=== PATIENT | female | born 1945 | race Caucasian/White ===

== ENCOUNTER → 2016-04-24 14:00 | Outpatient (CLI) | payer MEDICARE, BC ==
[2016-04-24 15:05] LABS: BILIRUBIN - TOTAL 0.3 mg/dL (0.2-1.3); CALCIUM 9.4 mg/dL (8.5-10.1); CARBON DIOXIDE 26.8 mmol/L (21.0-32.0); CREATININE - SERUM 1.3 mg/dL (0.6-1.3); POTASSIUM - SERUM 4.8 mmol/L (3.5-5.1)
== END | disposition home or self-care (01) ==
LOC: D.LAB 04-22 15:30 → D.RAD 04-22 15:30
PROVIDERS: Internal Medicine Gastroenterology
DX: K59.00 Constipation, unspecified (principal)

== ENCOUNTER → 2016-05-09 12:20 | Outpatient (CLI) | payer MEDICARE, BC ==
[2016-05-09 13:18] LABS: BASOPHILS 0 % (0.0-2.0); EOSINOPHILS 0.5 % (0-7); HEMOGLOBIN 11.9 g/dL (12-16); IMMATURE GRANULOCYTES 0.3 % (0-5); LYMPHOCYTES 37.9 % (15-50); MCH 32.2 pg (26.0-34.0); MCHC 33.1 g/dL (31.0-37.0); MCV 97.6 fL (80.0-100.0); MEAN PLATELET VOLUME 10.2 fL (7.4-10.4); MONOCYTES 12.6 % (2-11); NEUTROPHILS 48.7 % (40-80); PLATELET COUNT 173 10x3/uL (130-400); RBC 3.69 10x6/uL (4.00-5.40); RDW 13.8 % (11.5-14.5); WBC 3.9 10x3/uL (4.8-10.8)
[2016-05-09 13:37] LABS: ALBUMIN 4.2 g/dL (3.4-5.0); ANION GAP 14.3 mmol/L (8-16); BILIRUBIN - DIRECT 0.1 mg/dL (0.00-0.30); BILIRUBIN - INDIRECT 0.21 mg/dL (0.00-1.00); BILIRUBIN - TOTAL 0.31 mg/dL (0.2-1.3); CALCIUM 9.5 mg/dL (8.5-10.1); CARBON DIOXIDE 27.8 mmol/L (21.0-32.0); PHOSPHOROUS 3.7 mg/dL (2.5-4.9); POTASSIUM - SERUM 4.1 mmol/L (3.5-5.1); PROTEIN - SERUM 7.8 g/dL (6.4-8.2); THYROID STIMULATING HORMONE 6.42 uIU/mL (0.36-3.74)
== END | disposition home or self-care (01) ==
LOC: D.LAB 12:20
PROVIDERS: Pain Medicine Pain Medicine
DX: Z51.81 Encounter for therapeutic drug level monitoring (principal); Z79.891 Long term (current) use of opiate analgesic

== ENCOUNTER 2016-07-28 20:22 | Inpatient (IN) | payer MEDICARE, BC ==
[~2016-07-28] VITALS: Ht 157.5 cm; Wt 69.1 kg
--- NOTE | ~2016-07-28 | CN ---
PATIENT NAME:AWA ANTONIO MEDICAL RECORD: [id number] : 45 LOCATION:D. D.2108 ADMIT DATE: 07/28/16 ACCOUNT: [id number] CONSULTING PHYSICIAN: THUAN GUTIERREZ MD REFERRING PHYSICIAN: BURKE JONES MD DATE OF CONSULTATION: 07/29/2016 Cardiology Consultation HISTORY OF PRESENT ILLNESS: A 71-year-old lady known with history of cardiac arrhythmias, well controlled on a combination of low dosed class 1A agent propafenone and beta blockade, has been having intermittent marked nausea and vomiting ____ every lasting 3 days. It has been ongoing by her report for the past year, having a bad episode yesterday and had a syncopal episode. She was found to have UTI and probable intravascular volume depletion as well. We are asked to see her concerning her cardiovascular status. PAST MEDICAL HISTORY: 1. History of hypertension. 2. Chronic pain syndrome. 3. Dyslipidemia. 4. Cardiac arrhythmias as described above. 5. Anxiety. 6. Gastroesophageal reflux disease. 7. Hypothyroidism, on replacement. MEDICATIONS: Include Synthroid 88 mcg q. day, Nexium 40 q. day, ____ 20 p.r.n., Roxicodone 15 q.4 p.r.n., Dilaudid 4 mg q.4 hours p.r.n., Neurontin 300 mg q. day, fentanyl patch, Aldactone 50 q. day, ramipril 10 q. day, propafenone 150 b.i.d., metoprolol 25 b.i.d., fenofibrate 160 q. day, Soma 350 q.i.d. ALLERGIES: KEFLEX, PENICILLINS, IRON AND LATEX. SOCIAL HISTORY: , lives here in [place]. She is a nonsmoker, has some trouble with ADLs secondary to chronic pain syndrome. REVIEW OF SYSTEMS: The patient reports easy bruising but reports no swollen glands. The patient reports no fever, no night sweats, no significant weight gain, no significant weight loss. No significant exercise tolerance. The patient reports no dry eyes, no irritation, no vision change. Patient reports no difficulty hearing and no ear pain. Patient reports no frequent nose bleeds or nose and sinus problems. Patient reports on arm pain on exertion. No shortness of breath while lying down. No history of heart murmur. Patient reports no cough, no wheezing or coughing up blood. Patient reports no abdominal pain, no vomiting. Normal appetite. No diarrhea and not vomiting blood. No nausea and no constipation. Patient reports no incontinence. No difficulty urinating. No hematuria. No increased frequency. Patient reports no muscle aches. No weakness, no arthralgias, no back pain. No swelling of the extremities. Patient reports no abnormal mole, no jaundice, no rashes. Reports no loss of consciousness. No weakness and no numbness. No seizures, dizziness, or headaches. The patient reports no depression, no sleep disturbance, feeling safe in a relationship and no alcohol abuse. Patient reports on fatigue. Reports no runny nose or sinus pressure. No itching, no hives, and no frequent sneezing. CONSULT REPORT [id number] AWA ANTONIO PHYSICAL EXAMINATION: GENERAL: Pleasant female in no acute distress, currently appears stated age. VITAL SIGNS: Blood pressure 120/44, pulse of 53. HEENT: Normocephalic, atraumatic. NECK: No bruits noted. HEART: Regular. LUNGS: Swann are clear. ABDOMEN: Soft, nontender. EXTREMITIES: Pulses 2+ with no edema. NEUROLOGIC: Grossly intact. LABORATORY DATA: ECG shows sinus laverne only. IMPRESSION: Syncope, could be aggravated by intravascular volume depletion. Given her chronic emesis and nausea could have been a vagal response. We will check carotid Doppler study, echocardiographic study in the office approximately 2 months ago was normal as well as angiography approximately 2 years ago. TRANSINT:[id number] Voice Confirmation ID: [id number] DOCUMENT ID: [id number] THUAN GUTIERREZ MD CC: [id number] DICTATION DATE: 07/29/16 1430 TOWN JUSTICE: 07/30/16 0140 ADM IN [facility] [address] [id number]
--- NOTE | ~2016-07-28 | PRO ---
PATIENT:AWA ANTONIO MEDICAL RECORD: [id number] : 45 LOCATION:D.M2 D.2108 ADMISSION DATE: 07/28/16 PROCEDURE PERFORMED BY: ODETTE LUGO MD DATE OF PROCEDURE: 07/31/2016 COMPONENTS ENGINEER: Odette Lugo MD PROCEDURE: EGD with biopsy. INDICATION: The patient is a 71-year-old white female with a longstanding greater than 10-year history of epigastric pain, nausea, and occasional vomiting, and admitted with recurrent symptoms. She has had multiple extensive workups in the past, all being essentially negative. This includes a CT of the abdomen and pelvis, upper GI, small bowel follow-through, colonoscopy, EGD times 4. She is already status post cholecystectomy. She has been on long-term PPI therapy and is not on any NSAIDs. Remaining labs is unremarkable other than mild anemia. Her abdomen is soft, mild epigastric tenderness. She has a normal KUB and normal repeat CT of the abdomen and pelvis. She is now for repeat EGD. PREMEDICATION: Taper anesthesia. INSTRUMENT: Olympus video gastroscope. FINDINGS: The endoscope was passed through the oropharynx to the second portion of the duodenum without difficulty. The esophagus was completely normal other than a small sliding 1-2 cm hiatal hernia. The stomach was entered and was remarkable for scant diffuse gastritis associated with a couple of small, less than 1 cm fundic gland polyps. All of these in the gastric mucosa throughout were biopsied to rule out microscopic disease. The duodenum was entered and was completely normal. The patient tolerated the procedure well without immediate complication. IMPRESSION: 1. Essentially normal EGD other than a very small sliding hiatal hernia, scant gastritis, couple of benign fundic gland appearing polyps. 2. Epigastric pain, still unclear etiology, but there was nothing seen on today's exam to explain her pain. At this point, I do not think her symptoms are related to any significant GI pathology. RECOMMENDATIONS: 1. Follow up biopsy results. 2. As I have told this lady in the past, really I have nothing else to offer her other than to refer her to [facility] like I have already done. She is supposed to see them, I believe in October 2016. TRANSINT:[id number] Voice Confirmation ID: [id number] DOCUMENT ID: [id number] PROCEDURE NOTE [id number] PEÑAGULSHAN PeaceODETTE LOCKE MD CC: BURKE JONES MD [id number] DICTATION DATE: 07/31/16 1149 PLASTERER ROUGH: 08/01/16 0829 DIS IN 07/31/[id number] [place] [address]
[2016-07-28 21:47] LABS: BASOPHILS 0 % (0-2); EOSINOPHILS 0 % (0-7); HEMATOCRIT 32.6 % (36.0-48.0); LYMPHOCYTES 40.7 % (15-50); MCH 28.2 pg (26.0-34.0); MCHC 30.7 g/dL (31.0-37.0); MCV 91.8 fL (80.0-100.0); MEAN PLATELET VOLUME 9.6 fL (7.4-10.4); MONOCYTES 8.1 % (2-11); NEUTROPHILS 51.2 % (40-80); PLATELET COUNT 239 10x3/uL (130-400); RBC 3.55 10x6/uL (4.00-5.40); RDW 13.9 % (11.5-14.5); WBC 4.2 10x3/uL (4.8-10.8)
[2016-07-28 22:27] LABS: AMYLASE - SERUM 63 U/L (25-115); CALC OSMOLALITY 279 mosm/kg (275-300); CALCIUM 8.9 mg/dL (8.5-10.1); CARBON DIOXIDE 24.7 mmol/L (21.0-32.0); CHLORIDE - SERUM 106 mmol/L (98-107); CREATININE - SERUM 1.1 mg/dL (0.6-1.3); GLUCOSE 90 mg/dL (74-106); LIPASE 124 U/L (73-393); POTASSIUM - SERUM 4.1 mmol/L (3.5-5.1); SODIUM 140 mmol/L (136-145); TROPONIN-I < 0.017 ng/mL (0.000-0.060); UREA NITROGEN 16 mg/dL (7-18); eGFR NON AFRICAN AMERICAN 52 mL/min (90-120)
[2016-07-28 22:39] LABS: ALBUMIN 3.3 g/dL (3.4-5.0); ALKALINE PHOSPHATASE 59 U/L (46-116); ALT (SGPT) 22 U/L (10-68); BILIRUBIN - TOTAL 0.18 mg/dL (0.2-1.3); PROTEIN - SERUM 6.4 g/dL (6.4-8.2)
[2016-07-28 23:10] LABS: APPEARANCE CLOUDY (CLEAR); BILIRUBIN NEGATIVE (NEGATIVE); COLOR YELLOW (YELLOW); GLUCOSE NEGATIVE (NEGATIVE); KETONE NEGATIVE (NEGATIVE); LEUKOCYTE ESTERASE 2+ (NEGATIVE); NITRITE NEGATIVE (NEGATIVE); PROTEIN NEGATIVE (NEGATIVE); SPECIFIC GRAVITY 1.015 (1.005-1.020); UROBILINOGEN NORMAL (NORMAL)
[2016-07-28 23:24] LABS: BACTERIA MANY /hpf (NONE SEEN); EPITHELIAL CELLS 0-5 /hpf (0-5); HYALINE CAST OCC /lpf (NONE SEEN); MUCUS <1+ /lpf (NONE SEEN); WHITE CELLS - URINE 25-50 /hpf (0-5)
--- NOTE | 2016-07-29 00:49 | NUR ---
REPORT RECEIVED FROM ODETTE JEAN RN.
--- NOTE | 2016-07-29 01:15 | NUR ---
ARRIVED TO FLOOR VIA STRETCHER, ORIENTED TO UNIT. CALL LIGHT IN REACH. WILL CONTINUE TO [facility]. SEE NURSE ASSESSMENT.
[2016-07-29] MEDS ORDERED: DURAGESIC1 PATCH .1 TRANSDERM (01:21)
[2016-07-29] MEDS ORDERED: BUTALB-APAP-CA1 EACH PO (01:21)
[2016-07-29] MEDS ORDERED: ROXICODONE15 MG PO (01:22)
[2016-07-29] MEDS ORDERED: NEURONTIN 300300 MG PO (01:22)
[2016-07-29] MEDS ORDERED: SYNTHROID88 MCG PO (01:22)
[2016-07-29] MEDS ORDERED: LOPRESSOR25 MG PO (01:23)
[2016-07-29] MEDS ORDERED: NEXIUM40 MG PO (01:23)
[2016-07-29] MEDS ORDERED: PROPAFENONE HC150 MG PO (01:25)
[2016-07-29] MEDS ORDERED: ALTACE10 MG PO (01:25)
[2016-07-29] MEDS ORDERED: FENOFIBRATE160 MG PO (01:26)
[2016-07-29] MEDS ORDERED: FUROSEMIDE20 MG PO (01:26)
[2016-07-29] MEDS ORDERED: AMBIEN10 MG PO (01:26)
[2016-07-29] MEDS ORDERED: DILAUDID4 MG PO (01:28)
[2016-07-29] MEDS ORDERED: ALDACTONE50 MG PO (01:29)
[2016-07-29] MEDS ORDERED: SOMA350 MG PO (01:29)
--- NOTE | 2016-07-29 02:17 | NUR ---
COMPLAINTS OF BURNING AND ITCHING AT IV SITE, FLUSHED IV PT STATES IT FEELS WORSE. DC'D WITH TIP INTACT.
[2016-07-29 06:37] VITALS: BP 116/60
--- NOTE | 2016-07-29 07:30 | NUR ---
AM ROUNDING- RECEIVED REPORT FROM YOUTH DIRECTOR NURSE ARSH. PT IS CURRENTLY LAYING IN BED ON RIGHT SIDE WITH EYES CLOSED RESTING. ON ROOM AIR. ON MONITOR SHOWING SB, HR 50. IV SEEN TO RIGHT HAND WITH NS RUNNING AT 50CC. NO NEED AT CURRENT TIME. WILL CONTINUE TO MONITOR AND CONTINUE WITH PLAN OF CARE.
--- NOTE | 2016-07-29 07:52 | NUR ---
WINSTON DUNBAR CAME TO INFORM ME THAT PT HAD YELLED OUT AND BETTINA WENT INTO PTS ROOM TO FIND PT SITTING UP AGAINST WALL. WINSTON DUNBAR STATES SHE DID NOT SEE PT FALL BUT FOUND HER SITTING IN CORNER OF ROOM ON FLOOR. WINSTON DUNBAR STATES PT INFORMED HER THAT SHE HAD A DIZZY SPELL WHEN GOING TO THE BATHROOM AND FELL. PT STATES TO WINSTON DUNBAR THAT SHE ONLY HIT HER ELBOW AND NOTHING ELSE. BETTINA, STATES SHE HELPED PT BACK TO BED. I (THIS NURSE) WENT TO CHECK ON PT AND PT IS LAYING IN BED ON BACK. PT STATES HER BACK HURTS. I ASKED PT IF HER BACK PAIN WAS GOING ON PRIOR TO FALLING, PT STATED "YES". PLACED BED ALARM ON PT, PLACED RAILS UP X2, BED IS IN LOW POSTION, AND CALL LIGHT IS IN REACH. INSTRUCTED PT TO USE CALL LIGHT FOR ASSISTANCE IF NEEDING TO GET OOB, PT AGREED. LORENA PONCE (CHARGE NURSE) AWARE OF SITUATION. WILL FOLLOW POLICY ORDERES REGARDING THIS AND CONTINUE TO MONITOR.
[2016-07-29 08:00] VITALS: BP 105/45
--- NOTE | 2016-07-29 08:01 | NUR ---
PAGEMurphy [place] REGARDING SITUATION OF PT HAVING DIZZY SPELL AND FALLING. WILL AWAIT CALLBACK AND CONTINUE TO MONITOR.
--- NOTE | 2016-07-29 09:04 | NUR ---
0800- INCIDENT REPORT DONE PER POLICY WITH ASSISTANCE FROM THOMAS DEL VALLE, WALLPAPER INSTALLER. PAULA CAPSULE MACHINE OPERATOR AWARE OF FALL. BED ALARM IS ON, BED IS IN LOW POSITION, SIDE RAILS ARE UP X2. PT AWARE TO USE CALL LIGHT IF NEEDING ASSISTANCE. WILL CONTINUE TO MONITOR.
--- NOTE | 2016-07-29 09:19 | NUR ---
CALLED PTS TO INFORM HIM OF PT FALLING. STATES HE WILL BE DOWN HERE SHORTLY. PAULA, SPANISH LITERATURE PROFESSOR ON UNIT NOW. PAULA IS AWARE OF FAMILY MEMBER BEING NOTIFIED. NO CALL BACK YET FROM GEOVANNA ALMAGUER NP. WILL CONTINUE TO MONITOR.
--- NOTE | 2016-07-29 10:21 | NUR ---
1009- RECEIVED CALLBACK FROM GEOVANNA ALMAGUER NP. GEOVANNA ALMAGUER NP AWARE OF PT FALLING. INFORMED GEOVANNA ALMAGUER NP THAT PT STATES SHE ONLY HIT ELBOW (NOT WITNESSED). GEOVANNA ALMAGUER NP NOTIFIED.
[2016-07-29 10:24] VITALS: Ht 157.5 cm; Wt 69.1 kg
[2016-07-29 12:00] VITALS: BP 120/44
--- NOTE | 2016-07-29 13:14 | NUR ---
SCD'S ON BILATERAL LE
--- NOTE | 2016-07-29 13:36 | NUR ---
0800- REPORT DONE PER POLICY WITH ASSISTANCE FROM THOMAS DEL VALLE, MATHEMATICS EDUCATION PROFESSOR. PAULA SPRAYER INSECTICIDE AWARE OF PTS FALL. BED ALARM IS ON, BED IS IN LOWEST POSITION, SIDE RAILS ARE UP X2, CALL LIGHT IS IN REACH, AND NON-SKID SOCKS ARE ON. PT AWARE TO USE CALL LIGHT IF NEEDING ASSISTANCE. WILL CONTINUE TO MONITOR.
--- NOTE | 2016-07-29 14:20 | NUR ---
WINSTON DUNBAR PLACED SCDS ON PT ORDERED.
--- NOTE | 2016-07-29 18:15 | NUR ---
PT IS CURRENTLY SITTING UP IN BED WITH EYES OPEN RESTING. NO NEED AT CURRENT TIME. BED ALARM IS ON, BED IS IN LOWEST POSITION, SIDE RAILS ARE UP X2, CALL LIGHT IS IN REACH, AND NON-SKID SOCKS ARE ON. WILL CONTINUE TO MONITOR.
--- NOTE | 2016-07-29 19:51 | NUR ---
RESUMED CARE OF PT, LYING IN BED RESPIRATIONS EVEN AND UNLABORED ON ROOM AIR. RIGHT HAND INFUSING NS @ 100. BED ALARM ON. REQUESTS NIGHT MEDS, NO FURTHER NEEDS AT THIS TIME. CALL LIGHT IN REACH. WILL CONTINUE TO [facility]. SEE NURSE ASSESSMENT.
[2016-07-29 20:00] VITALS: BP 149/66
--- NOTE | 2016-07-29 21:00 | NUR ---
GEOVANNA MONSON PAGED FOR NIGHT MEDS, AWAITING CALL BACK.
[2016-07-30] VITALS: BP 156/66
--- NOTE | 2016-07-30 02:30 | NUR ---
DILAUDID IVP AND FOR NECK AND BACK PAIN, MARCELO FOR SLEEP. WILL CONTINUE TO MONITOR. CALL LIGHT IN REACH.
[2016-07-30 06:17] LABS: ALBUMIN 2.6 g/dL (3.4-5.0); ALKALINE PHOSPHATASE 52 U/L (46-116); ALT (SGPT) 18 U/L (10-68); BILIRUBIN - TOTAL 0.26 mg/dL (0.2-1.3); CALCIUM 8.1 mg/dL (8.5-10.1); CARBON DIOXIDE 24.2 mmol/L (21.0-32.0); CHLORIDE - SERUM 108 mmol/L (98-107); GLUCOSE 83 mg/dL (74-106); HEMATOCRIT 28.3 % (36.0-48.0); HEMOGLOBIN 8.8 g/dL (12-16); LIPASE 76 U/L (73-393); MCHC 31.1 g/dL (31.0-37.0); MCV 90.1 fL (80.0-100.0); MEAN PLATELET VOLUME 9.1 fL (7.4-10.4); PLATELET COUNT 263 10x3/uL (130-400); POTASSIUM - SERUM 3.7 mmol/L (3.5-5.1); PROTEIN - SERUM 5.3 g/dL (6.4-8.2); RBC 3.14 10x6/uL (4.00-5.40); RDW 13.6 % (11.5-14.5); SODIUM 141 mmol/L (136-145); eGFR NON AFRICAN AMERICAN 75 mL/min (90-120)
[2016-07-30 06:18] LABS: WBC 2.5 10x3/uL (4.8-10.8)
[2016-07-30 06:20] LABS: AMYLASE - SERUM 40 U/L (25-115); CALC OSMOLALITY 277 mosm/kg (275-300); CREATININE - SERUM 0.8 mg/dL (0.6-1.3); UREA NITROGEN 7 mg/dL (7-18)
--- NOTE | 2016-07-30 06:46 | NUR ---
NO CHANGES FROM PREVIOUS ASSESSMENT, CALL LIGHT IN REACH. WILL CONTINUE WITH PLAN OF CARE.
[2016-07-30 07:05] LABS: LYMPHOCYTES 48 % (15-50); MONOCYTES 5 % (2-11); NEUTROPHILS 47 % (40-80); PLATELET ESTIMATE NORMAL
[2016-07-30 08:00] VITALS: BP 150/62
[2016-07-30 11:20] LABS: BASOPHILS 0 % (0-2); EOSINOPHILS 0.4 % (0-7); HEMATOCRIT 29.2 % (36.0-48.0); LYMPHOCYTES 48.9 % (15-50); MCHC 30.8 g/dL (31.0-37.0); MEAN PLATELET VOLUME 8.8 fL (7.4-10.4); MONOCYTES 9.5 % (2-11); NEUTROPHILS 41.2 % (40-80); PLATELET COUNT 236 10x3/uL (130-400); RBC 3.21 10x6/uL (4.00-5.40); RDW 13.6 % (11.5-14.5); WBC 2.3 10x3/uL (4.8-10.8)
[2016-07-30 13:26] VITALS: BP 126/69
[2016-07-30 16:00] VITALS: BP 141/69
--- NOTE | 2016-07-30 17:06 | NUR ---
Patient Name: AWA ANTONIO Admission Status: ER Accout number: [id number] Admission Date: 07-28-2016 : 1945 Admission Diagnosis: Attending: CAROLIN Current LOS: 2 Anticipated DC Date: Planned Disposition: Home Primary Insurance: MEDICARE A & B Discharge Planning Comments: CM MET WITH PATIENT. WITH SPOUSE CHINA ANTONIO PRESENT, TO DISCUSS DISCHARGE PLANNING/NEEDS. PATIENT STATED THAT HER PLAN WAS TO RETURN HOME WITH SPOUSE. HER SPOUSE, CHINA ANTONIO [phone], WILL BE HER DISCHARGE HOME. SHE STATED SHE HAS A WALKER AT HOME FROM WHEN SHE BROKE HER HIP, BUT DOES NOT NEED IT NOW. CURRENTLY SHE DENIES ANY NEEDS. CM WILL CONTINUE TO FOLLOW AND ASSIST NEEDED. Foamite Mixer: Ruby Díaz Is the patient Alert and Oriented? Yes * How many steps to enter\exit or inside your home? 3, RAIL * PCP DR MILAGROS ORNELAS * Pharmacy [facility] ([place]) * Preadmission Environment Home with Family * ADLs Independent * Equipment Rolling Walker * List name and contact numbers for known caregivers / representatives who currently or will assist patient after discharge: CHINA ANTONIO, SPOUSE, * Community resources currently utilized None * Additional services required to return to the preadmission environment? No * Can the patient safely return to the preadmission environment? Yes * Has this patient been hospitalized within the prior 30 days at any hospital? No
--- NOTE | 2016-07-30 17:32 | NUR ---
ALERT AND ORIENTED X4. COMPLAINS OF EPIGASTRIC PAIN CONSTANT 10/10. PAIN MANAGEMENT CONTINUED ORDERED. AT BEDSIDE. SINUS RHTHYM 62bpm ON TELEMETRY. CONTINUE PLAN OF CARE AND SAFETY PRECAUTIONS.
--- NOTE | 2016-07-30 18:23 | CN ---
PATIENT NAME:AWA ANTONIO MEDICAL RECORD: [id number] : 45 LOCATION:D.M2 D.2108 ADMIT DATE: 07/28/16 ACCOUNT: [id number] CONSULTING PHYSICIAN: ODETTE HALL MD REFERRING PHYSICIAN: OMID HERBERT MD DATE OF CONSULTATION: 07/29/2016 Gastroenterology Consultation Note REFERRING PHYSICIAN: Omid Herbert MD HISTORY OF PRESENT ILLNESS: The patient is a 71-year-old white female, very well known to me for about 10 years, who basically was admitted with buutw-sm-updbyso epigastric pain, nausea and vomiting. She also has occasional flank pain and was admitted for further workup. This lady has had chronic pain issues for many, many years and has had an extensive workup including multiple CTs of the abdomen, KUBs, 4 EGDs, colonoscopy, small bowel capsule endoscopy, small bowel follow through and upper GI. She is already status post cholecystectomy. All of her lab work was unremarkable including a CBC, CMP, amylase and lipase. Her last EGD was normal in August 2014. Last colonoscopy was normal in October 2010. ALLERGIES: KEFLEX/PENICILLIN AND LATEX. HOME MEDICATIONS: Include Fioricet, fentanyl patch, oxycodone, levothyroxine, gabapentin, Nexium 40 mg daily, metoprolol, Rythmol, Altace, Lasix, fenofibrate, Ambien, Dilaudid, Aldactone, and Soma. PAST MEDICAL HISTORY: As above. She has diabetes, hypothyroidism, glaucoma, hypertension, AFib, and DVTs. PAST SURGICAL HISTORY: Remarkable for cholecystectomy, hysterectomy, total left shoulder surgery and total right hip surgery. She has also had C-spine surgery. FAMILY HISTORY: Negative for GI diseases. SOCIAL HISTORY: The patient is a former smoker. She denies alcohol use. REVIEW OF SYSTEMS: Noncontributory other than in the HPI. PHYSICAL EXAMINATION: GENERAL: Reveals a chronically ill-appearing white female in minimal distress. VITAL SIGNS: Stable. She is afebrile. CHEST: Clear. HEART: Regular rate and rhythm. ABDOMEN: Soft with mild epigastric tenderness present. EXTREMITIES: No edema. LABORATORY DATA: Reveals normal electrolytes, BUN 16, creatinine 1.1. Liver enzymes are normal. Amylase and lipase are normal. White count is 4000, hematocrit 32, MCV of 91, platelet count 239,000. There is no x-ray data. IMPRESSION: 1. Apvog-pt-dizdwec epigastric pain, nausea and vomiting of unclear etiology, CONSULT REPORT [id number] DILL,AWA VALERA but probably multifactorial and related to irritable bowel syndrome, pain meds, possibly Rythmol, etc. Again, she is status post extensive workup in the past on several occasions, all being essentially negative. She denies any nonsteroidal anti-inflammatory drugs use. She is already on Nexium. She is already status post cholecystectomy. 2. Chronic pain. The patient with history of drug seeking in the past. RECOMMENDATION: 1. CT of the abdomen and pelvis. 2. KUB. 3. If negative, consider repeat EGD on Friday. 4. Of note is that I have advised her to go [facility] for [facility] recently because of her chronic GI symptoms and negative workup. TRANSINT:[id number] Voice Confirmation ID: [id number] DOCUMENT ID: [id number] ODETTE HALL MD at 1823 CC: OMID HERBERT MD [id number] DICTATION DATE: 07/29/16 180 COUNTER HELP: 07/30/16 0340 ADM IN [facility] [address] [id number]
--- NOTE | 2016-07-30 19:21 | NUR ---
RECEIVED REPORT, PT DENIES ANY NEEDS, BED IS LOW, SRX2, BED ALARM IS ON, CALL LIGHT IN REACH, WILL CONTINUE PLAN OF CARE
[2016-07-30 20:00] VITALS: BP 148/59
[2016-07-31 01:17] VITALS: BP 139/67
--- NOTE | 2016-07-31 02:51 | NUR ---
REST QUIETLY IN BED WITH EYE CLOSE, CALL LIGHT WITHIN REACH.
[2016-07-31 05:07] LABS: BASOPHILS 0.5 % (0-2); EOSINOPHILS 0 % (0-7); HEMATOCRIT 33.4 % (36.0-48.0); HEMOGLOBIN 10.4 g/dL (12-16); IMMATURE GRANULOCYTES 0.5 % (0-5); LYMPHOCYTES 23.7 % (15-50); MCH 28.1 pg (26.0-34.0); MCHC 31.1 g/dL (31.0-37.0); MCV 90.3 fL (80.0-100.0); MEAN PLATELET VOLUME 9.5 fL (7.4-10.4); MONOCYTES 0.9 % (2-11); NEUTROPHILS 74.4 % (40-80); RDW 13.5 % (11.5-14.5); WBC 2.2 10x3/uL (4.8-10.8)
[2016-07-31 05:23] LABS: PLATELET COUNT 288 10x3/uL (130-400)
[2016-07-31 06:11] LABS: ALKALINE PHOSPHATASE 62 U/L (46-116); ALT (SGPT) 19 U/L (10-68); CALC OSMOLALITY 277 mosm/kg (275-300); CALCIUM 8.5 mg/dL (8.5-10.1); CARBON DIOXIDE 20.7 mmol/L (21.0-32.0); CHLORIDE - SERUM 106 mmol/L (98-107); CREATININE - SERUM 0.7 mg/dL (0.6-1.3); GLUCOSE 117 mg/dL (74-106); PROTEIN - SERUM 6.2 g/dL (6.4-8.2); SODIUM 140 mmol/L (136-145); UREA NITROGEN 6 mg/dL (7-18); eGFR NON AFRICAN AMERICAN 87 mL/min (90-120)
[2016-07-31 06:28] VITALS: BP 145/67
[2016-07-31 08:00] VITALS: BP 145/75
--- NOTE | 2016-07-31 08:18 | NUR ---
IV ACCESS-20 GAUGE INSERTED IN LEFT HAND FOR ACCESS. DANN COLIN RN
--- NOTE | 2016-07-31 12:00 | NUR ---
ARRIVE BACK TO ROOM FROM PROCEDURE. ALERT AND ORIENTED X4. BP-140/75, T-98.5, R-18, P-65. REQUESTING LT HAND IV BE TAKEN OUT. DC LT HAND IV TIP INTACT. NS INFUSING RT HAND IV @ 100mL/HR ORDERED. CHRONIC ABDOMINAL PAIN 11/26 UNRELIEVED BY DILAUDID IV ORDERED. DENIES SOB. BED LOCKED AND LOW. CALL LIGHT IN REACH. TWO SIDERAILS UP.
--- NOTE | 2016-07-31 12:35 | NUR ---
Nutrition follow-up: Diet: Regular s/p EGD PO intake has been poor due to continued severe abdominal pain. Labs reviewed Wt: 152# May need to consider nutrition support if po intake remains poor. RDN following.
[2016-07-31] MEDS ORDERED: LEVAQUIN500 MG PO (13:31)
--- NOTE | 2016-07-31 14:21 | NUR ---
NEW DISCHARGE MEDICATION, LEVAQUIN 500MG #2 CALLED TO M #2. SPOKE WITH CJ/PHARMACIST.
--- NOTE | 2016-07-31 15:21 | NUR ---
ALERT AND ORIENTED X4. AT BEDSIDE. DISCHARGE INSTRUCTIONS GIVEN VERBALLY AND WRITTEN. LEVAQUIN ANTIBIOTIC CALLED IN TO [facility]. DC RT HAND IV TIP INTACT. DISCHARGE PAPERS SIGNED ON CHART. ESCORT TO RIDE VIA WHEELCHAIR. REMAINS FREE FROM INJURY.
== END 2016-07-31 15:23 | disposition home or self-care (01) | DRG 392 ==
LOC: D.ER 20:22 → D.M2 23:52
PROVIDERS: Emergency Medicine Emergency Medical Services; Internal Medicine Gastroenterology; ADMIT Family Medicine Adult Medicine
PROC: 0DB68ZX Excision of Stomach, Via Natural or Artificial Opening Endoscopic, Diagnostic (ICD-10-PCS; principal; 2016-07-31 11:00)
DX: R10.13 Epigastric pain (principal); N39.0 Urinary tract infection, site not specified; K29.70 Gastritis, unspecified, without bleeding; K44.9 Diaphragmatic hernia without obstruction or gangrene; K31.7 Polyp of stomach and duodenum; E86.9 Volume depletion, unspecified; I10 Essential (primary) hypertension; F41.9 Anxiety disorder, unspecified; E03.9 Hypothyroidism, unspecified; K21.9 Gastro-esophageal reflux disease without esophagitis; G89.4 Chronic pain syndrome; R00.2 Palpitations; Z87.891 Personal history of nicotine dependence

== ENCOUNTER 2016-08-01 17:11 | Emergency (ER) | payer MEDICARE, BC ==
[~2016-08-01 17:11] MED LIST: ALDACTONE50 MG PO; ALTACE10 MG PO; AMBIEN10 MG PO; BUTALB-APAP-CA1 EACH PO; DILAUDID4 MG PO; DURAGESIC1 PATCH .1 TRANSDERM; FENOFIBRATE160 MG PO; FUROSEMIDE20 MG PO; LEVAQUIN500 MG PO; LOPRESSOR25 MG PO; NEURONTIN 300300 MG PO; NEXIUM40 MG PO; PROPAFENONE HC150 MG PO; ROXICODONE15 MG PO; SOMA350 MG PO; SYNTHROID88 MCG PO
[2016-08-01 18:21] LABS: BASOPHILS 0 % (0-2); EOSINOPHILS 0.1 % (0-7); HEMATOCRIT 34.7 % (36.0-48.0); HEMOGLOBIN 10.7 g/dL (12-16); IMMATURE GRANULOCYTES 0.2 % (0-5); LYMPHOCYTES 12.9 % (15-50); MCH 28.2 pg (26.0-34.0); MCHC 30.8 g/dL (31.0-37.0); MCV 91.3 fL (80.0-100.0); MEAN PLATELET VOLUME 8.9 fL (7.4-10.4); MONOCYTES 4.7 % (2-11); NEUTROPHILS 82.1 % (40-80); PLATELET COUNT 289 10x3/uL (130-400)
[2016-08-01 18:22] LABS: WBC 8.6 10x3/uL (4.8-10.8)
[2016-08-01 18:29] LABS: ALBUMIN 3.6 g/dL (3.4-5.0); ALKALINE PHOSPHATASE 66 U/L (46-116); ALT (SGPT) 17 U/L (10-68); AMYLASE - SERUM 74 U/L (25-115); BILIRUBIN - TOTAL 0.38 mg/dL (0.2-1.3); CALCIUM 9.2 mg/dL (8.5-10.1); CARBON DIOXIDE 25.1 mmol/L (21.0-32.0); CHLORIDE - SERUM 102 mmol/L (98-107); CREATININE - SERUM 0.8 mg/dL (0.6-1.3); GLUCOSE 129 mg/dL (74-106); LIPASE 198 U/L (73-393); PROTEIN - SERUM 6.8 g/dL (6.4-8.2); SODIUM 138 mmol/L (136-145); eGFR NON AFRICAN AMERICAN 75 mL/min (90-120)
[2016-08-01 18:30] LABS: CALC OSMOLALITY 276 mosm/kg (275-300); POTASSIUM - SERUM 3.1 mmol/L (3.5-5.1); UREA NITROGEN 9 mg/dL (7-18)
[2016-08-01 20:04] LABS: APPEARANCE CLEAR (CLEAR); BILIRUBIN NEGATIVE (NEGATIVE); COLOR STRAW (YELLOW); GLUCOSE NEGATIVE (NEGATIVE); KETONE NEGATIVE (NEGATIVE); LEUKOCYTE ESTERASE NEGATIVE (NEGATIVE); NITRITE NEGATIVE (NEGATIVE); PROTEIN NEGATIVE (NEGATIVE); UROBILINOGEN NORMAL (NORMAL)
== END 2016-08-01 22:00 | disposition home or self-care (01) ==
LOC: D.ER 17:11
PROVIDERS: Emergency Medicine
DX: R11.2 Nausea with vomiting, unspecified (principal); R51 Headache

== ENCOUNTER 2016-09-03 18:33 | Inpatient (IN) | payer MEDICARE, BC ==
[~2016-09-03] VITALS: Ht 157.5 cm; Wt 55.5 kg
[2016-09-03 19:59] LABS: BASOPHILS 1.1 % (0-2); EOSINOPHILS 0 % (0-7); HEMATOCRIT 37.5 % (36.0-48.0); HEMOGLOBIN 10.9 g/dL (12-16); IMMATURE GRANULOCYTES 0.2 % (0-5); MCH 27.4 pg (26.0-34.0); MCHC 29.1 g/dL (31.0-37.0); MCV 94.2 fL (80.0-100.0); MEAN PLATELET VOLUME 10.7 fL (7.4-10.4); NEUTROPHILS 76.7 % (40-80); PLATELET COUNT 257 10x3/uL (130-400); RBC 3.98 10x6/uL (4.00-5.40); RDW 16.2 % (11.5-14.5); WBC 6.2 10x3/uL (4.8-10.8)
[2016-09-03 20:01] LABS: ALBUMIN 3.3 g/dL (3.4-5.0); ALKALINE PHOSPHATASE 67 U/L (46-116); ALT (SGPT) 21 U/L (10-68); BILIRUBIN - TOTAL 0.39 mg/dL (0.2-1.3); CALC OSMOLALITY 278 mosm/kg (275-300); CALCIUM 8.7 mg/dL (8.5-10.1); CARBON DIOXIDE 21.6 mmol/L (21.0-32.0); CHLORIDE - SERUM 106 mmol/L (98-107); POTASSIUM - SERUM 4.5 mmol/L (3.5-5.1); PROTEIN - SERUM 7.3 g/dL (6.4-8.2); SODIUM 139 mmol/L (136-145); UREA NITROGEN 19 mg/dL (7-18); eGFR NON AFRICAN AMERICAN 58 mL/min (90-120)
[2016-09-03 20:02] LABS: GLUCOSE 78 mg/dL (74-106)
[2016-09-03 20:17] LABS: CKMB 0.1 U/L (0.0-3.6); CREATINE KINASE 129 UL (21-215)
[2016-09-03 20:18] LABS: TROPONIN-I < 0.017 ng/mL (0.000-0.060)
[2016-09-03 23:31] LABS: CKMB 1.2 U/L (0.0-3.6); CREATINE KINASE 118 UL (21-215); TROPONIN-I 0.019 ng/mL (0.000-0.060)
[2016-09-04] MEDS ORDERED: FLUTICASONE PRO16 GM NASAL (00:44)
[2016-09-04] MEDS ORDERED: ROXICODONE15 MG PO (01:19)
--- NOTE | 2016-09-04 03:43 | NUR ---
CANDY POLISHER AT BED SIDE TO OBTAIN VITALS, WILL CONT TO MONITOR.
[2016-09-04 03:49] VITALS: BP 136/89; Ht 157.5 cm; Wt 55.5 kg
[2016-09-04 04:51] VITALS: BP 124/50
[2016-09-04 05:19] LABS: BASOPHILS 0 % (0-2); EOSINOPHILS 0 % (0-7); IMMATURE GRANULOCYTES 0.2 % (0-5); LYMPHOCYTES 21.5 % (15-50); MCH 26.9 pg (26.0-34.0); MCHC 30.1 g/dL (31.0-37.0); MEAN PLATELET VOLUME 9.3 fL (7.4-10.4); MONOCYTES 6.9 % (2-11); NEUTROPHILS 71.4 % (40-80); PLATELET COUNT 256 10x3/uL (130-400); RBC 3.34 10x6/uL (4.00-5.40); RDW 15.4 % (11.5-14.5); WBC 5.1 10x3/uL (4.8-10.8)
[2016-09-04 05:24] LABS: HEMATOCRIT 29.9 % (36.0-48.0); MCV 89.5 fL (80.0-100.0)
[2016-09-04 05:37] LABS: CALC OSMOLALITY 284 mosm/kg (275-300); CARBON DIOXIDE 26.2 mmol/L (21.0-32.0); CHLORIDE - SERUM 106 mmol/L (98-107); CKMB 1.1 U/L (0.0-3.6); CREATINE KINASE 106 UL (21-215); CREATININE - SERUM 1.1 mg/dL (0.6-1.3); POTASSIUM - SERUM 4.2 mmol/L (3.5-5.1); SODIUM 141 mmol/L (136-145); TROPONIN-I 0.021 ng/mL (0.000-0.060); UREA NITROGEN 17 mg/dL (7-18); eGFR NON AFRICAN AMERICAN 52 mL/min (90-120)
[2016-09-04 05:40] LABS: GLUCOSE 135 mg/dL (74-106)
--- NOTE | 2016-09-04 07:22 | NUR ---
PT SITTING UP IN BED WATCHING TV DENIES NEEDS WILL CONT TO MONITOR
[2016-09-04 09:07] VITALS: BP 121/76
--- NOTE | 2016-09-04 10:00 | NUR ---
EKG ORDERED, DONE AND PLACED ON CHART
[2016-09-04 11:16] LABS: CKMB 0.6 U/L (0.0-3.6)
[2016-09-04 11:17] LABS: CREATINE KINASE 5 UL (21-215); TROPONIN-I < 0.017 ng/mL (0.000-0.060)
[2016-09-04 12:08] VITALS: BP 136/53
[2016-09-04 16:32] VITALS: BP 121/46
--- NOTE | 2016-09-04 17:00 | NUR ---
PT REFUSE SCD, BUT IS UP AD VERA
--- NOTE | 2016-09-04 17:58 | NUR ---
PT SITTING UP IN BED WITH AT BEDSIDE. DENIES NEEDS OTHER THAN PAIN MEDICATION FOR MARTIN. NOT TIME FOR MEDICATION YET
--- NOTE | 2016-09-04 19:37 | NUR ---
RECEIVED REPORT, PT VISITING WITH , PT SAYS IF WE WONT GIVE PAIN MEDS, SHE SHOULD JUST GO HOME, DR ESQUEDA ON FLOOR WAS TOLD, HE SAID IF SHE GOES SHE WILL HAVE TO GO AMA, BED IS LOW, SRX2, CALL LIGHT IN REACH, WILL CONTINUE PLAN OF CARE
[2016-09-04 23:32] VITALS: BP 143/60
--- NOTE | 2016-09-05 01:33 | NUR ---
CALL LIGHT IN REACH, WILL CONTINUE WITH PLAN OF CARE.
--- NOTE | 2016-09-05 02:39 | NUR ---
ASSESSMENT COMPLETE, SEE FLOWSHEET, PT C/O OF HEAD ACHE AND BACK PAIN, GAVE PERCERT ORDER, BED IS LOW, SRX2, CALL LIGHT IN REACH, WILL CONTINUE PLAN OF CARE
[2016-09-05 06:04] LABS: BASOPHILS 0 % (0-2); EOSINOPHILS 0 % (0-7); HEMATOCRIT 35.1 % (36.0-48.0); HEMOGLOBIN 10.7 g/dL (12-16); IMMATURE GRANULOCYTES 0.3 % (0-5); LYMPHOCYTES 30.7 % (15-50); MCH 26.8 pg (26.0-34.0); MCHC 30.5 g/dL (31.0-37.0); MEAN PLATELET VOLUME 9.5 fL (7.4-10.4); MONOCYTES 15.2 % (2-11); NEUTROPHILS 53.8 % (40-80); PLATELET COUNT 289 10x3/uL (130-400); RBC 3.99 10x6/uL (4.00-5.40); RDW 15.4 % (11.5-14.5)
[2016-09-05 06:14] LABS: WBC 3.7 10x3/uL (4.8-10.8)
[2016-09-05 06:24] VITALS: BP 128/62
[2016-09-05 06:35] LABS: ALBUMIN 3.3 g/dL (3.4-5.0); BILIRUBIN - TOTAL 0.28 mg/dL (0.2-1.3); CALCIUM 9.2 mg/dL (8.5-10.1); CARBON DIOXIDE 29.5 mmol/L (21.0-32.0); CREATININE - SERUM 1.1 mg/dL (0.6-1.3); PHOSPHOROUS 2.7 mg/dL (2.5-4.9); POTASSIUM - SERUM 4.5 mmol/L (3.5-5.1); PROTEIN - SERUM 7.4 g/dL (6.4-8.2)
--- NOTE | 2016-09-05 07:20 | NUR ---
PT SITTING UP IN BED WATCHING TV, DENIES ANY NEEDS AT THIS TIME WILL CONT TO MONITOR
[2016-09-05 12:09] VITALS: BP 118/47
[2016-09-05 13:19] LABS: APPEARANCE CLEAR (CLEAR); BILIRUBIN NEGATIVE (NEGATIVE); COLOR STRAW (YELLOW); GLUCOSE NEGATIVE (NEGATIVE); KETONE NEGATIVE (NEGATIVE); LEUKOCYTE ESTERASE NEGATIVE (NEGATIVE); NITRITE NEGATIVE (NEGATIVE); PROTEIN NEGATIVE (NEGATIVE); SPECIFIC GRAVITY 1.005 (1.005-1.020); UROBILINOGEN NORMAL (NORMAL)
[2016-09-05 16:06] VITALS: BP 125/50
--- NOTE | 2016-09-05 18:36 | NUR ---
PT CO SEVERE PAIN AGAIN IN HER BACK 11/26. DR GIRALDO ALTERED PAIN MEDICATION ORDERS. GIVEN ORDERED FOR PAIN. PT DENIES ANY OTHER NEEDS
--- NOTE | 2016-09-05 19:54 | NUR ---
RECEIVED REPORT, WILL ASSUME CARE OF PT, PT RESTING IN BED, DENIES ANY NEEDS AT THIS TIME, BED IS LOW, SRX2, CALL LIGHT IN REACH, WILL CONTINUE CARE OF PLAN
[2016-09-05 20:00] VITALS: BP 124/55
--- NOTE | 2016-09-05 22:25 | NUR ---
COMPLAINS OF BACK PAIN, ASKING FOR PAIN MEDS, GAVE OXYCODONE 5MG X3 ORDER, WILL CONTINUE TO MONITOR
[2016-09-06] VITALS: BP 129/76
--- NOTE | 2016-09-06 01:33 | NUR ---
ASSESSMENT COMPLETE, SEE FLOWSHEET,PT PLAYING ON TABLET, DENIES ANY NEEDS AT THIS TIME, BED IS LOW, SRX2, CALL LIGHT IN REACH, WILL CONTINUE TO MONITOR
--- NOTE | 2016-09-06 02:28 | NUR ---
COMPLAIN OF BACK PAIN, GAVE OXYCODONE ORDER, WILL CONTINUE TO MONITOR
[2016-09-06 04:00] VITALS: BP 120/64
--- NOTE | 2016-09-06 04:51 | NUR ---
FINISH PRODUCTION MANAGER AT BEDSIDE TO OBTAIN VITALS, CALL LIGHT IN REACH. WILL CONTINUE WITH PLAN OF CARE.
[2016-09-06 06:03] LABS: BASOPHILS 0 % (0-2); EOSINOPHILS 0 % (0-7); HEMATOCRIT 35.9 % (36.0-48.0); HEMOGLOBIN 11.2 g/dL (12-16); IMMATURE GRANULOCYTES 0.3 % (0-5); LYMPHOCYTES 42.4 % (15-50); MCH 27.1 pg (26.0-34.0); MCHC 31.2 g/dL (31.0-37.0); MCV 86.9 fL (80.0-100.0); MEAN PLATELET VOLUME 9.4 fL (7.4-10.4); MONOCYTES 12.8 % (2-11); NEUTROPHILS 44.5 % (40-80); PLATELET COUNT 333 10x3/uL (130-400); RBC 4.13 10x6/uL (4.00-5.40); RDW 15.7 % (11.5-14.5); WBC 3.8 10x3/uL (4.8-10.8)
[2016-09-06 06:22] LABS: ALBUMIN 3.5 g/dL (3.4-5.0); ANION GAP 15.3 mmol/L (8-16); BILIRUBIN - TOTAL 0.29 mg/dL (0.2-1.3); CALCIUM 9.1 mg/dL (8.5-10.1); CARBON DIOXIDE 25.7 mmol/L (21.0-32.0); MAGNESIUM - SERUM 1.7 mg/dL (1.8-2.4); PROTEIN - SERUM 7.6 g/dL (6.4-8.2)
[2016-09-06 06:25] LABS: CREATININE - SERUM 1.6 mg/dL (0.6-1.3); PHOSPHOROUS 4.2 mg/dL (2.5-4.9)
--- NOTE | 2016-09-06 06:37 | NUR ---
COMPLAINS OF PAIN, GAVE OXYCODONE ORDER
--- NOTE | 2016-09-06 07:14 | NUR ---
PT SITTING UP IN BED WATCHING TV, ASKING ABOUT POSSIBLE DC HOME. EXPLAINED TO PT THAT WE DO NOT HAVE ORDERS AND DR MUST SEE HER FIRST BEFORE DC HOME. PT VERBALIZES UNDERSTANDING. WILL CONT TO MONITOR
[2016-09-06 07:47] VITALS: BP 109/48
[2016-09-06 11:43] VITALS: BP 120/98
[2016-09-06] MEDS ORDERED: LEVAQUIN500 MG PO (12:50)
[2016-09-06] MEDS ORDERED: FUROSEMIDE20 MG PO (12:51)
--- NOTE | 2016-09-06 14:48 | NUR ---
WENT OVER DC PAPERWORK WITH PT PT VERBALIZES UNDERSTANDING. DC PIV WITH CATH TIP INTACT. DC TELE AND RETURNED TO DOCK COORDINATOR. PT HAS LEVAQUIN SCRIPT. GETTING DRESSED THEN WILL WHEEL DOWNSTAIRS
--- NOTE | 2016-09-06 15:24 | NUR ---
PT WHEELED OUT BY VOLUNTEER
--- NOTE | 2016-09-06 16:07 | NUR ---
Patient Name: AWA ANTONIO Admission Status: ER Accout number: [id number] Admission Date: 09-04-2016 : 1945 Admission Diagnosis: Attending: THEA Current LOS: 2 Anticipated DC Date: 09-06-2016 Planned Disposition: Primary Insurance: MEDICARE A & B Discharge Planning Comments: CM MET WITH PATIENT AND HER SPOUSE TO DISCUSS DISCHARGE NEEDS. PATIENT STATED THAT SHE PLANS TO RETURN HOME WITH HER SPOUSE, AND HE IS HER TRANSPORTATION HOME. SHE STILL HAS THE WALKER AT HOME IF SHE WERE TO NEED IT. DENIES THE NEED FOR ANY COMMUNITY RESOURCES AT THIS TIME. MADE MYSELF AVAILABLE IF THEY WERE TO CHANGE THEIR MIND PRIOR TO LEAVING. Radio Interference Expert: Ruby Díaz Is the patient Alert and Oriented? Yes * How many steps to enter\exit or inside your home? 3, RAIL * PCP DR MILAGROS ORNELAS * Pharmacy [facility] #[facility] * Preadmission Environment Home with Family * ADLs Independent * Equipment Walker * List name and contact numbers for known caregivers / representatives who currently or will assist patient after discharge: CHINA ANTONIO, SPOUSE, * Additional services required to return to the preadmission environment? No * Can the patient safely return to the preadmission environment? Yes * Has this patient been hospitalized within the prior 30 days at any hospital? No
== END 2016-09-06 15:24 | disposition home or self-care (01) | DRG 291 ==
LOC: D.ER 18:33 → D.MS 22:54 → D.M2 22:54 → D.ER 22:54 → OBSVTIME 22:55 → D.M2 09-04 13:52
PROVIDERS: Family Medicine; ADMIT Family Medicine
DX: I13.0 Hypertensive heart and chronic kidney disease with heart failure and stage 1 through stage 4 chronic kidney disease, or unspecified chronic kidney disease (principal); J18.9 Pneumonia, unspecified organism; N17.9 Acute kidney failure, unspecified; T40.4X1A Poisoning by other synthetic narcotics, accidental (unintentional), initial encounter; E11.22 Type 2 diabetes mellitus with diabetic chronic kidney disease; N18.9 Chronic kidney disease, unspecified; I50.9 Heart failure, unspecified; I48.91 Unspecified atrial fibrillation; H40.9 Unspecified glaucoma; D64.9 Anemia, unspecified; K27.9 Peptic ulcer, site unspecified, unspecified as acute or chronic, without hemorrhage or perforation; G89.4 Chronic pain syndrome; E78.5 Hyperlipidemia, unspecified; K21.9 Gastro-esophageal reflux disease without esophagitis; M81.0 Age-related osteoporosis without current pathological fracture; E55.9 Vitamin D deficiency, unspecified; E03.9 Hypothyroidism, unspecified; F41.9 Anxiety disorder, unspecified

== ENCOUNTER 2016-10-30 11:07 | Outpatient (CLI) | payer MEDICARE, BC ==
[~2016-10-30] VITALS: Ht 157.5 cm; Wt 51.8 kg
--- NOTE | ~2016-10-30 | HEMODYNAMI ---
PATIENT:AWA ANTONIO MEDICAL RECORD: [id number] : 45 LOCATION:[facility] ADMISSION DATE: 10/30/16 Generatedon:10/30/201614:45 Patient name: AWA ANTONIO Patient #: [id number] SSN: : Date of study: 10/30/2016 Page: Of Hemodynamic Procedure Report Patient Data Patient Demographics Procedure consent was obtained First Name: AWA Gender: Female Last Name: MARISELA : 1945 [facility] Initial: SOTO Age: 71 year(s) Patient #: [id number] Race: Unknown Additional ID: [id number] Contact details [address]: [address] [place] [address] State: [place] City: [place] Zip code: [address] Past Medical History Allergies Allergen Reaction Date Comments Reported Other allergy 10/30/2016 Keflex, Latex, Iron, PCN, almonds Admission Admission Data Admission Date: 10/30/2016 Admission Time: 11:07 Height (in.): 62 BSA: 1.53 (m2) Height (cm.): 157.48 BMI: 21.77 (kg/m2) Weight (lbs.): 119 Weight (kg.): 53.98 Lab Results Lab Result Date: 10/30/2016 Lab Result Time: 12:15 Biochemistry Name Units Result Min Max BUN mg/dl 43 --(----)-* 7 18 Creatinine mg/dl 1.4 --(----)*- 0.6 1.3 CBC Name Units Result Min Max Hematocrit % 35.4 *-(----)-- 42 54 Hemoglobin g/dl 10.7 *-(----)-- 13.5 17.5 Procedure Procedure Types Cath Procedure Diagnostic Procedure C [facility] w/Coronaries Miscellaneous Procedures Moderate Sedation up to 15 minutes Procedure Description Procedure Date Procedure Date: 10/30/2016 Procedure Start Time: 14:28 Procedure End Time: 14:38 Procedure Staff Name Function Saulo Prather MD Performing Physician Ernestine Pastor RT Scrub Joe Traore RN Nurse Ermias Ahuja RT Monitor Procedure Data Cath Procedure Fluoroscopy Diagnostic fluoroscopy Total fluoroscopy Time: 0.8 time: 0.8 min min Diagnostic fluoroscopy Total fluoroscopy dose: 164 dose: 164 mGy mGy Contrast Material Contrast Material Type Amount (ml) Isovue 300 43 Entry Location Entry Primary Successful Side Size Upsize Upsize Entry Closure Succes sful Closure Location (Fr) 1 (Fr) 2 (Fr) Remarks Device Remarks Femoral Right 5 Fr Exoseal artery Estimated blood loss: 5 ml Diagnostic catheters Device Type Used For End Catheter Placement Cordis 5Fr JL 4.0 Procedure Catheter (MP) Cordis 5Fr 3DRC Catheter Procedure (MP) Cordis 5Fr Pigtail Procedure Catheter (MP) Procedure Complications No complications Procedure Medications Medication Administration Route Dosage Oxygen NC 2 l/min Lidocaine 2% added to field 20 Heparin Flush Bag added to field 2 bags (1000units/500ml NS) 0.9% NaCl I.V. 100 ml/hr Versed I.V. 1 mg Fentanyl I.V. 50 mcg Versed I.V. 1 mg Fentanyl I.V. 50 mcg Versed I.V. 1 mg Fentanyl I.V. 50 mcg Fentanyl I.V. 50 mcg Hemodynamics Rest BSA: 1.53 (m2) HGB: 10.7 (g/dl) O2 Consumption: Estimated: 135.1 (ml/min) O2 Con sumption indexed: Estimated:88.3 (ml/min/m) Heart Rate: 60 (bpm) Pressure Samples Time Site Value (mmHg) Purpose Heart Use Rate(bpm) 14:33 LV 101/7,9 EDP 61 14:34 AO 118/55(82) Pullback 59 Gradients Valve Time Site Site 2 Mean SEP/DFP Peak To Heart Use 1 (mmHg) (sec/min) Peak Rate (mmHg) (bpm) Aortic 14:34 LV AO 19 17 59 118/55(82) Calculations Valve P-P Mean Valve Index Valve Source Name Gradient Area Flow (cm2) Aortic 19 19 Snapshots Pre Cath Intra NCS Post Cath Vital Signs Time Heart Resp SPO2 NIBP (mmHg) Rhythm Pain Sedation Rate (ipm) (%) Status Level (bpm) 14:18:06 53 15 100 155/54(125) SB 0 (11) 10(A) , No pain 14:22:32 54 14 100 137/58(74) SB 0 (11) 10(A) , No pain 14:26:46 53 14 100 124/79(96) SB 0 (11) 10(A) , No pain 14:31:07 58 14 96 106/46(86) SB 0 (11) 9(A) , No pain 14:35:12 63 15 100 103/70(78) SB 0 (11) 9(A) , No pain Medications Time Medication Route Dose Verified Delivered Reason Notes Effe ctiveness by by 14:17:26 Oxygen NC 2 Saulo Buffie used for l/min YamilkaKaitlin Traore [employer] retailer sales consultant 14:17:33 Lidocaine 2% added 20ml Saulo Saulo for local to vial [facility] anesthetic field MD LISA 14:17:39 Heparin Flush added 2 Saulo Saulo used for Bag to bags [facility] procedure (1000units/500ml field MD LISA NS) 14:17:49 0.9% NaCl I.V. 100 Saulo Buffie Per ml/hr [facility] Georgi Traore RN physician 14:18:05 Fentanyl I.V. 50 Saulo Monsonie for [facility] Traore RN sedation 14:21:15 Versed I.V. 1 mg Saulo Monsonie for YamilkaKaitlin Traore RN sedation 14:21:21 Fentanyl I.V. 50 Saulo Buffie for [facility] YamilkaKaitlin Traore RN sedation 14:26:06 Versed I.V. 1 mg Saulo Monsonie for YamilkaKaitlin Traore RN sedation 14:26:10 Fentanyl I.V. 50 Saulo Monsonie for [facility] Georgi Traore RN sedation 14:32:37 Versed I.V. 1 mg Saulo Monsonie for YamilkaKaitlin Traore RN sedation 14:32:41 Fentanyl I.V. 50 Saulo Buffie for [facility] Yamilka Traore RN sedation Procedure Log Time Note 13:45:30 Joe Traore RN sent for patient. Start room use. 13:55:38 Patient Height : 157.48 inches 13:55:43 Patient Weight : 53.98 lbs 13:56:28 Diagnostic Cath status Elective 13:56:31 Time tracking: Regular hours 13:56:36 Plan of Care:Hemodynamics will remain stable., Cardiac rhythm will remain stable., Comfort level will be maintained., Respiratory function will remain adequate., Patient/ family verbilizes understanding of procedure., Procedure tolerated without complication., Recovers from procedure without complications.. 13:58:54 Lab Result : BUN 43 mg/dl 13:58:54 Lab Result : Hemoglobin 10.7 g/dl 13:58:54 Lab Result : Hematocrit 35.4 % 13:58:54 Lab Result : Creatinine 1.4 mg/dl 14:05:28 Patient received from Pre/Post Procedure Room to CCL 2 Alert and oriented. Tansferred to table in Supine position. 14:05:31 Warm blankets applied, and tonya hugger turned on for patient comfort. 14:05:31 Correct patient and procedure confirmed by team. 14:05:32 Signed procedure consent form obtained from patient. 14:05:34 ECG and BP/O2 sat monitors applied to patient. 14:05:45 H&P Date Dictated: 10/18/2016 Within 30 days and on chart., H&P Addendum completed by physician on day of procedure. (MUST COMPLETE FOR ALL OUTPATIENTS). 14:05:46 Pre-procedure instructions explained to patient. 14:05:46 Pre-op teaching completed and patient verbalized understanding. 14:05:48 Family in patients room. 14:05:49 Patient NPO since Midnight. 14:06:19 Patient allergic to Other allergyKeflex, Latex, Iron, PCN, almonds 14:06:21 Is the patient allergic to Iodine/contrast media? No. 14:15:40 Vital chart was started 14:16:08 Is patient on blood thinner?No 14:16:10 Patient diabetic? No. 14:16:12 Previous problem with sedation/anesthesia? No ? 14:16:13 Snore? No 14:16:14 Sleep apnea? No 14:16:15 Deviated septum? No 14:16:16 Opens mouth fully? Yes 14:16:16 Sticks out tongue? Yes 14:16:18 Airway obstruction? No ? 14:16:19 Dentures? No ? 14:16:24 Pre procedure: right dorsailis pedis pulse 1+ Palpable, but thready & weak; easily obliterated 14:16:26 Patient pain scale 0/10 ?. 14:16:35 IV patent on arrival in left wrist with 0.9% NaCl at [facility]. 14:16:37 Lab results completed and on chart. 14:16:40 Right groin area was prepped with chlora-prep and draped in sterile fashion 14:16:42 Alarms reviewed by R. N. 14:16:42 Sharps counted by scrub and verified by R.N. 14:16:44 Use device set Femoral Dx 14:16:45 Tegaderm 4 x 4 opened to sterile field. 14:16:46 Acist Manifold opened to sterile field. 14:16:46 Acist Hand Control opened to sterile field. 14:16:47 Acist Syringe opened to sterile field. 14:16:48 Bag Decanter opened to sterile field. 14:16:48 Medline Cath Pack opened to sterile field. 14:16:49 Terumo 5Fr [place] Sheath opened to sterile field. 14:16:49 St Garland 260cm J .035 wire opened to sterile field. 14:16:50 Diagnostic Infinity 5Fr Multipack catheter opened to sterile field. 14:17:02 Baseline sample Acquired. 14:17:26 Oxygen 2 l/min NC was administered by Joe Traore RN; used for procedure; 14:17:32 Rhythm: bigeminy 14:17:33 Lidocaine 2% 20ml vial added to field was administered by Saulo Prather MD; for local anesthetic; 14:17:33 Full Disclosure recording started 14:17:36 Physician arrived 14:17:36 --------ALL STOP TIME OUT------ 14:17:37 Final Timeout: patient, procedure, and site verified with staff and physician. All members of the team are in agreement. 14:17:39 Heparin Flush Bag (1000units/500ml NS) 2 bags added to field was administered by Saulo Prather MD; used for procedure; 14:17:39 Right groin site verified by team. 14:17:42 Physical assessment completed. ASA score P 2 - A patient with mild systemic disease as per Saulo Prather MD. 14:17:44 Sedation plan: IV Moderate Sedation Versed, Fentanyl 14:17:49 0.9% NaCl 100 ml/hr I.V. was administered by Joe Traore RN; Per physician; 14:18:05 Fentanyl 50 mcg I.V. was administered by Buffie Traore RN; for sedation; 14:21:15 Versed 1 mg I.V. was administered by Joe Traore RN; for sedation; 14:21:21 Fentanyl 50 mcg I.V. was administered by Joe Traore RN; for sedation; 14:26:06 Versed 1 mg I.V. was administered by Joe Traore RN; for sedation; 14:26:10 Fentanyl 50 mcg I.V. was administered by Joe Traore RN; for sedation; 14:26:12 Zero performed for pressure channel P1 14:28:10 Procedure started. 14:28:13 Local anesthetic to right femoral artery with Lidocaine 2% by Saulo Prather MD.INITIAL ACCESS ONLY 14:28:20 A 5 Fr sheath was inserted into the Right Femoral artery 14:29:27 A Cordis 5Fr JL 4.0 Catheter (MP) was advanced over the wire and used for Procedure. 14:30:12 LCA angiography performed. 14:31:24 Catheter exchanged over wire. 14:31:29 A Cordis 5Fr 3DRC Catheter (MP) was advanced over the wire and used for Procedure. 14:32:12 RCA angiography performed. 14:32:22 Catheter exchanged over wire. 14:32:32 A Cordis 5Fr Pigtail Catheter (MP) was advanced over the wire and used for Procedure. 14:32:37 Versed 1 mg I.V. was administered by Joe Traore RN; for sedation; 14:32:41 Fentanyl 50 mcg I.V. was administered by Joe Traore RN; for sedation; 14:33:51 LV gram done using RODRIGUEZ 14:33:54 Injector settings: Ml/sec: 10, Volume: 20, 14:34:04 EF : 55 % 14:34:16 Catheter removed. 14:34:22 Cordis 5Fr Exoseal opened to sterile field. 14:34:28 Sheath removed intact; hemostasis achieved with Exoseal to the Right Femoral artery. 14:34:30 Procedure ended.(Physican Out) 14:34:54 Fluoroscopy time 00.80 minutes. ::57 Fluoroscopy dose: 164 mGy 14::57 Flurop Dose total: 164 14:35:07 Contrast amount:Isovue 300 43ml. 14:37:11 Sharps counted by scrub and verified by R.N. 14:37:14 Insertion/operative site no bleeding no hematoma. 14:37:16 Post-op/insertion site Right Femoral artery dressed using a 4 x 4 and Tegaderm. 14:37:19 Post right femoral artery:stable, soft, clean and dry 14:37:20 Post Procedure Pulses reassessed and unchanged 14:37:22 Post-procedure physical assessment completed. ASA score P 2 - A patient with mild systemic disease as per Saulo Prather MD. 14:37:24 Post procedure rhythm: unchanged. 14:37:27 Estimated blood loss: 5 ml 14:37:28 Post procedure instruction explained to patient.Patient verbalizes understanding. 14:37:28 Patient needs reinforcement of post procedure teaching. 14:37:52 Procedure and supply charges have been captured, reviewed, submitted and are correct. 14:37:54 Procedure Complication : No complications 14:37:56 Vital chart was stopped 14:37:56 See physician's report for complete and final results. 14:37:58 Report given to Pre/Post Procedure Room. 14:38:00 Patient transfered to Pre/Post Procedure Room with Stretcher. 14:38:01 Procedure ended. 14:38:01 Full Disclosure recording stopped 14:38:06 End room use (Document Last) Device Usage Item Name Manufacture Quantity Catalog Hospital Part Current Minimal Lo t# / Number Charge Number Stock Stock Serial# Code Tegaderm 4 3M 1 1626W [id number] 576115 785291 5 x 4 Acist Acist 1 86616 481955 735101 426298 5 Manifold [employer] Inc Acist Hand Acist 1 03202 371544 508369 534412 5 Control Medical Systems Inc Acist Acist 1 04553 871150 497739 076707 20 Syringe Medical Systems Inc Bag Microtek 1 2002S 542777 79327 901707 5 Decanter Medical Inc. Medline Cardinal 1 [id number] 866481 66618 783622 5 Cath Pack Health Terumo 5Fr Terumo 1 DDQ667 612128 090851 607160 [address] Garland 1 164257 622619 937181 823524 30 260cm J .035 wire Diagnostic Cardinal 1 [id number] 404641 09766 872210 30 Arisdyne Systems 5Fr Multipack catheter Cordis 5Fr Cardinal 1 589892 5 JL 4.0 Health Catheter (MP) Cordis 5Fr Cardinal 1 539466 5 3DRC Health Catheter (MP) Cordis 5Fr Cardinal 1 310321 5 Pigtail Health Catheter (MP) Cordis 5Fr Cardinal 1 EX500 298608 901570 551382 10 [facility] Health Signature Audit [place] Stage Time Signature Unsigned Intra-Procedure 10/30/2016 Ermias Ahuja 2:45:36 PM RT(R) Signatures Monitor : Ermias Ahuja RT Signature : Date : Time : [address] [address] [place] [address]
[~2016-10-30 11:07] MED LIST changes: +FLUTICASONE PRO16 GM NASAL
[2016-10-30 12:27] VITALS: BP 137/44; Ht 157.5 cm; Wt 51.8 kg
[2016-10-30 13:04] LABS: ANION GAP 11.9 mmol/L (8-16); CARBON DIOXIDE 26.7 mmol/L (21.0-32.0); CREATININE - SERUM 1.4 mg/dL (0.6-1.3); POTASSIUM - SERUM 5.6 mmol/L (3.5-5.1)
[2016-10-30 13:35] LABS: BASOPHILS 0 % (0-2); EOSINOPHILS 0 % (0-7); HEMATOCRIT 35.4 % (36.0-48.0); HEMOGLOBIN 10.7 g/dL (12-16); IMMATURE GRANULOCYTES 0.3 % (0-5); LYMPHOCYTES 50.1 % (15-50); MCHC 30.2 g/dL (31.0-37.0); MCV 89.2 fL (80.0-100.0); MEAN PLATELET VOLUME 9.8 fL (7.4-10.4); MONOCYTES 9.6 % (2-11); RBC 3.97 10x6/uL (4.00-5.40); RDW 16.6 % (11.5-14.5); WBC 3.5 10x3/uL (4.8-10.8)
[2016-10-30 13:36] LABS: PLATELET COUNT 221 10x3/uL (130-400)
--- NOTE | 2016-10-30 15:05 | NUR ---
1450 RECEIVED PT FROM [place], PT IS SLEEPY, DENIES ANY C/O AT THIS TIME. DRESSING TO RIGHT GROIN IS CDI, AREA SOFT AND NONTENDER. PEDAL PULSES PALPABLE. RR IS EVEN AND UNLABORED. AT BEDSIDE, CALL LIGHT IN REACH, PT INSTRUCTED TO KEEP HEAD TO PILLOW AND RIGHT LEG STRAIGHT.
--- NOTE | 2016-10-30 15:21 | NUR ---
1510 PT DENIES ANY C/O. RIGHT GROIN IS CDI, AREA SOFT AND NONTENDER. PEDAL PULSES PALPABLE, CAP REFILL IS BRISK. AT BEDSIDE, CONTINUE POC.
--- NOTE | 2016-10-30 15:30 | NUR ---
1530 PT DENIES ANY C/O. DRESSING CDI, CALL LIGHT IN REACH.
--- NOTE | 2016-10-30 16:06 | NUR ---
1545 RR EVEN AND UNLABORED. DENIES ANY C/O CHEST PAIN, DRESSING CDI, FAMILY AT BEDSIDE, CALL LIGHT IN REACH.
--- NOTE | 2016-10-30 16:51 | NUR ---
1620 HOB ELEVAGTED 45 DEGREES, DRESSING REMAINS CDI, PT DENIES ANY C/O. MARLA PO FLUIDS. 1635 IV HAS BEEN DC'D WITH CATH INTACT. PT HAS AMBULATED TO THE BATHROOM AND VOIDED QS. SITTING UP IN CHAIR EATING SANDWICH.
--- NOTE | 2016-10-30 17:04 | NUR ---
1700 PT HAS MARLA SANDWICH WITH NO C/O NAUSEA. DRESSING REMAINS CDI, GROIN SOFT AND NONTENDER. DC INSTRUCTIONS REVIEWED WITH PT WHO VERBALIZES UNDERSTANDING. PT ESCORTED TO PRIVATE AUTO VIA WC BY STAFF WITH DRIVING HER HOME.
--- NOTE | 2016-11-01 08:25 | OP ---
PATIENT NAME: AWA ANTONIO MEDICAL RECORD: [id number] :45 LOCATION:D.[facility] ADMISSION DATE: SURGEON: THUAN GUTIERREZ MD DATE OF OPERATION: 10/30/2016 PROCEDURES: Left heart catheterization, selective coronary angiography, right femoral artery approach. CATHETERS: A 5-Khmer sheath, 5/4 left and right Tonia, 5/4 pig. The procedure was well tolerated. The patient was returned to morales, sheath removed. ExoSeal device was placed. FINDINGS: Left ventriculography in 30-degree RODRIGUEZ view: Normal wall motion, normal systolic function. CORONARY ANATOMY: LEFT MAIN: Left main is free of disease. LAD: Free of disease in the diagonal system. CIRCUMFLEX: Free of disease in the marginal system. RIGHT CORONARY ARTERY: Dominant artery, gives rise to PDA, free of disease. IMPRESSION: Normal left ventricular systolic function. Normal coronary anatomy. TRANSINT:[id number] Voice Confirmation ID: [id number] DOCUMENT ID: [id number] THUAN GUTIERREZ MD at 0825 CC: [id number] DICTATION DATE: 10/30/161441 VIBRATORY PILE DRIVER: 10/30/162057 DEP CLI 10/30/16 [place] [address] [place] [address]
== END 2016-10-30 17:00 | disposition home or self-care (01) ==
LOC: D.CATH 11:07
PROVIDERS: Internal Medicine Interventional Cardiology
DX: I20.9 Angina pectoris, unspecified (principal); I10 Essential (primary) hypertension; I49.1 Atrial premature depolarization; I49.3 Ventricular premature depolarization; I67.9 Cerebrovascular disease, unspecified; Z01.812 Encounter for preprocedural laboratory examination

== ENCOUNTER 2017-06-20 12:53 | Emergency (ER) | payer MEDICARE, BC ==
[2016-10-30 12:27] VITALS: BMI 20.9
== END 2017-06-20 14:49 | disposition home or self-care (01) ==
LOC: D.ER 12:53
DX: S16.1XXA Strain of muscle, fascia and tendon at neck level, initial encounter (principal); V49.9XXA Car occupant (driver) (passenger) injured in unspecified traffic accident, initial encounter; Y93.89 Activity, other specified; Y92.89 Other specified places as the place of occurrence of the external cause; R07.89 Other chest pain

== ENCOUNTER → 2019-01-31 | Emergency (ER) | payer MEDICARE, BC ==
[~2019-01-31] VITALS: Ht 157.5 cm; Wt 52.6 kg
[~2019-01-31] MED LIST changes: +LANAPROST PO; +OXYCODONE HCL E20 MG PO; +RANITIDINE HCL150 M1 PO
[2019-01-31 06:38] VITALS: BP 153/71; Ht 157.5 cm; Wt 52.6 kg
== END ==
LOC: D.ER 06:32
DX: S01.01XA Laceration without foreign body of scalp, initial encounter (principal); W19.XXXA Unspecified fall, initial encounter; Y93.9 Activity, unspecified; Y92.9 Unspecified place or not applicable; S16.1XXA Strain of muscle, fascia and tendon at neck level, initial encounter; S09.90XA Unspecified injury of head, initial encounter; E11.40 Type 2 diabetes mellitus with diabetic neuropathy, unspecified; I10 Essential (primary) hypertension; E07.9 Disorder of thyroid, unspecified

== ENCOUNTER 2019-02-08 11:13 | Emergency (ER) | payer MEDICARE, BC ==
[~2019-02-08] VITALS: Ht 157.5 cm; Wt 54.5 kg
[2019-02-08 11:25] VITALS: Ht 157.5 cm; Wt 54.5 kg
[2019-02-08 11:30] VITALS: BP 135/70
== END 2019-02-08 11:33 | disposition home or self-care (01) ==
LOC: D.ER 11:13
DX: Z48.02 Encounter for removal of sutures (principal); I10 Essential (primary) hypertension; E11.9 Type 2 diabetes mellitus without complications; I48.91 Unspecified atrial fibrillation

== ENCOUNTER → 2019-03-01 12:10 | Outpatient (CLI) | payer MEDICARE, BC ==
[2019-02-08 11:25] VITALS: BMI 22.0
== END | disposition home or self-care (01) ==
LOC: D.HCCARDIO 12:10
PROVIDERS: ATTEND Internal Medicine Cardiovascular Disease
DX: R07.89 Other chest pain (principal)

== ENCOUNTER → 2019-09-13 20:35 | Outpatient (CLI) | payer MEDICARE, BC ==
[2019-02-08 11:25] VITALS: BMI 22.0
[2019-09-13 22:59] LABS: ALBUMIN 3.8 g/dL (3.4-5.0); ANION GAP 11.1 mmol/L (8-16); BILIRUBIN - TOTAL 0.24 mg/dL (0.2-1.3); CALCIUM 9.2 mg/dL (8.5-10.1); CARBON DIOXIDE 27.7 mmol/L (21.0-32.0); CREATININE - SERUM 1.5 mg/dL (0.6-1.3); POTASSIUM - SERUM 4.8 mmol/L (3.5-5.1); PROTEIN - SERUM 6.8 g/dL (6.4-8.2)
== END | disposition home or self-care (01) ==
LOC: D.LABREF 20:35
PROVIDERS: ATTEND Family Medicine
DX: I10 Essential (primary) hypertension (principal)

== ENCOUNTER 2020-06-03 08:50 | Inpatient (IN) | payer MEDICARE, BC ==
[2020-06-03] VITALS (44 sets, daily range): BP systolic 62–144; BP diastolic 20–80; BMI 24.7
[~2020-06-03] VITALS: Ht 157.5 cm; Wt 67.7 kg
[2020-06-03] MEDS ORDERED: OMEPRAZOLE40 MG PO (09:22)
[2020-06-03] MEDS ORDERED: OMEPRAZOLE40 MG (09:22)
[2020-06-03] MEDS ORDERED: FUROSEMIDE20 MG PO (09:23)
[2020-06-03] MEDS ORDERED: FLAGYL500 MG (09:23)
[2020-06-03 10:07] LABS: BASOPHILS 0.2 % (0-2); EOSINOPHILS 0.2 % (0-7); HEMATOCRIT 39.9 % (36.0-48.0); HEMOGLOBIN 12.7 g/dL (12-16); IMMATURE GRANULOCYTES 0.4 % (0-5); LYMPHOCYTE ABS# 0.64 10x3/uL (1.18-3.74); LYMPHOCYTES 12.3 % (15-50); MCH 30.3 pg (26.0-34.0); MCHC 31.8 g/dL (31.0-37.0); MCV 95.2 fL (80.0-100.0); MEAN PLATELET VOLUME 10.9 fL (7.4-10.4); MONOCYTES 12.3 % (2-11); NEUTROPHILS 74.6 % (40-80); RBC 4.19 10x6/uL (4.00-5.40); WBC 5.2 10x3/uL (4.8-10.8)
[2020-06-03 10:09] LABS: PLATELET COUNT 166 10x3/uL (130-400)
[2020-06-03 10:12] LABS: BILIRUBIN NEGATIVE (NEGATIVE); KETONE NEGATIVE (NEGATIVE); NITRITE NEGATIVE (NEGATIVE); UROBILINOGEN NORMAL mg/dL (< 2)
[2020-06-03 10:12] LABS: CALC OSMOLALITY 288 mosm/kg (275-300); CALCIUM 8.4 mg/dL (8.5-10.1); CARBON DIOXIDE 16.2 mmol/L (21.0-32.0); CHLORIDE - SERUM 102 mmol/L (98-107); CREATININE - SERUM 2.8 mg/dL (0.6-1.3); GLUCOSE 126 mg/dL (74-106); SODIUM 139 mmol/L (136-145); UREA NITROGEN 38 mg/dL (7-18); eGFR NON AFRICAN AMERICAN 17 mL/min (90-120)
[2020-06-03 10:16] LABS: APTT 30.1 SECONDS (22.8-39.4); INR 1.32 (0.85-1.17); PROTIME 15.2 SECONDS (11.6-15.0)
[2020-06-03 10:33] LABS: ALBUMIN 2.7 g/dL (3.4-5.0); ALKALINE PHOSPHATASE 73 U/L (30-120); ALT (SGPT) 35 U/L (10-68); BILIRUBIN - TOTAL 0.59 mg/dL (0.2-1.3); CREATINE KINASE 649 UL (21-215); MAGNESIUM - SERUM 1.9 mg/dL (1.8-2.4); PROTEIN - SERUM 5.7 g/dL (6.4-8.2); THYROID STIMULATING HORMONE 3.87 uIU/mL (0.36-3.74)
[2020-06-03 10:39] LABS: TROPONIN-I 1.725 ng/mL (0.000-0.060)
--- NOTE | 2020-06-03 10:48 | NUR ---
LEVOPHED RUNNING AT 8/HR
[2020-06-03 11:14] LABS: SARS-CoV-2 ANTIGEN NEGATIVE- SARS-COV-2 (NEGATIVE)
--- NOTE | 2020-06-03 11:30 | NUR ---
PT ARRIVED VIA STECHER FROM ER. INFUSING LEVOPHED @ 8MCG/HR. PT ALERT AND CONFUSED. PALE. PERIPHERAL PULSES PALPABLE ON UPPER AND LOWER EXTREMITIES BILATERALLY. SEE VITAL SIGN FLOWSHEET FOR DETAILS. ABDOMEN DISTENDED. PT YELLED OUT IN PAIN UPON LIGHT PALPATION TO BILATERAL LOWER ABDOMEN. DR. SANDERS ON UNIT. MADE AWARE OF THIS. ORDERS RECIEVED FOR KUB AND CT ABD/PELVIS. DR. HAJI ON THE UNIT, MADE AWARE OF NEED FOR CVL PLACEMENT, ART LINE PLACEMENT, AND CONSULT FOR SURGERY FOR POTENTIAL ABDOMINAL COMPLICATIONS PENDING IMAGING. STARTED ON PROTONIX DRIP THAT WAS ORDERED IN ER TO 18G RIGHT EJ, DRESSING CDI. ATTEMPTED TO USE PUREWICK, PT STATES SHE NEEDED TO URINATE SEVERAL TIMES BUT ACTED IF SHE COULD NOT GO. ROGERS PLACED USING STERILE PRECAUTIONS, 350MLS DARK URINE NOTED UPON PLACEMENT. 1300- NG TUBE PLACED TO LEFT NARE AND CONNECTED TO LOW INT. SUCTION. DARK GREEN/BLACK BILE NOTED. 1400- CONTACTED TO LET HIM KNOW ABOUT PENDING SURGERY. RETRIEVED HIM FROM WAITING ROOM AND WAS INSTRUCTED TO NOT GO INTO ROOM DUE TO COVID ISOLATION. UPDATED FAMILY ON POC.
[2020-06-03 18:09] LABS: CKMB 19.5 U/L (0.0-3.6)
[2020-06-03 18:10] LABS: CREATINE KINASE 1007 UL (21-215); TROPONIN-I 1.676 ng/mL (0.000-0.060)
[2020-06-03 22:04] LABS: CKMB 37.1 U/L (0.0-3.6)
[2020-06-03 22:11] LABS: CREATINE KINASE 1734 UL (21-215); TROPONIN-I 1.502 ng/mL (0.000-0.060)
[2020-06-04] VITALS (98 sets, daily range): BP systolic 95–139; BP diastolic 35–61
[2020-06-04 03:54] LABS: BASOPHILS 0 % (0-2); EOSINOPHILS 0 % (0-7); HEMATOCRIT 33.7 % (36.0-48.0); HEMOGLOBIN 10.8 g/dL (12-16); IMMATURE GRANULOCYTES 1.3 % (0-5); LYMPHOCYTE ABS# 0.32 10x3/uL (1.18-3.74); LYMPHOCYTES 10.6 % (15-50); MCH 29.7 pg (26.0-34.0); MEAN PLATELET VOLUME 10.4 fL (7.4-10.4); MONOCYTES 11.9 % (2-11); NEUTROPHILS 76.2 % (40-80); PLATELET COUNT 160 10x3/uL (130-400); RBC 3.64 10x6/uL (4.00-5.40)
[2020-06-04 03:55] LABS: MCV 92.6 fL (80.0-100.0)
[2020-06-04 04:20] LABS: ALKALINE PHOSPHATASE 38 U/L (30-120); ALT (SGPT) 30 U/L (10-68); BILIRUBIN - TOTAL 0.58 mg/dL (0.2-1.3); CALC OSMOLALITY 291 mosm/kg (275-300); CARBON DIOXIDE 19.3 mmol/L (21.0-32.0); CHLORIDE - SERUM 108 mmol/L (98-107); CKMB 16.4 U/L (0.0-3.6); CREATININE - SERUM 2.6 mg/dL (0.6-1.3); GLUCOSE 141 mg/dL (74-106); MAGNESIUM - SERUM 1.3 mg/dL (1.8-2.4); PHOSPHOROUS 3.2 mg/dL (2.5-4.9); PRO BNP 25073 pg/mL (0-450); SODIUM 140 mmol/L (136-145); UREA NITROGEN 42 mg/dL (7-18); VANCOMYCIN - TROUGH 13.4 ug/mL (10.0-20.0); eGFR NON AFRICAN AMERICAN 19 mL/min (90-120)
[2020-06-04 04:21] LABS: ALBUMIN 1.7 g/dL (3.4-5.0); CREATINE KINASE 1964 UL (21-215); PROTEIN - SERUM 4.2 g/dL (6.4-8.2)
[2020-06-04 04:24] LABS: CALCIUM 6.7 mg/dL (8.5-10.1); TROPONIN-I 1.534 ng/mL (0.000-0.060)
--- NOTE | 2020-06-04 14:37 | NUR ---
0700-RECIEVED PER FLOW FGCTY-DAFWGMB-AMZ-BILE DRAINAGE-LOW INTERMITTENT-SINGLE LUMEN R IJ SALINE LOCKED-R SCCVL-INFUSING LEVOPHED/ PROTONIX/ BICARB GTT-CVP READING-R FEM GALEN TO MONITOR -RECAL FOR ZERO-AND LEVELED-JPRATT COMPRESSED FOR SEROUS FLUID -SEROU TYPE FLUID IN OSTOMY BAG-SOFT WRIST RESTRAINTS PLACED TO PREVENT PT ATTEMPT TO PULL DRG OFF 0830-DR HAJI AT BEDSIDE-DIRECTION GIVEN FOR DRG CHANGE AND PLACED NURSE INSTRUCTION-U/O NOTED AND BUN AND CREAT FUNCTION- 0900-DR GARCIA AT BEDSIDE -UPDATE GIVEN-ORDERS RECIEVED AND CONFIRMED USAGE OF PRECEDEX IN ADDITION TO PAIN MANAGEMENT-DR MULLER CARDIOLOGY AT BEDSIDE AND SPOKE WITH DR GARCIA- AT BEDSIDE AND UPDATE GIVEN 1030-NOTED DECREASE IN RR FROM 33 TO 16-PRECEDEX AT 0.1-ABG REPEATED AND DR GARCIA NOTIFIED-PRECEDEX TURNED OFF AT THIS TIME 1100-CONFIRMED OK TO RETURN TO PRECEDEX MANAGEMENT-RETURNED TO 0.1-ECHOCARDIOGRAM IN PROGRESS 1200-DR SANDERS AT BEDSIDE AND SPOKE WITH -REMAINS AT ROOM
--- NOTE | 2020-06-04 15:14 | NUR ---
drg changed-small amount of serous drainage-distal end x 2inch open per surgeon-clips intact per remainder-pt guarded site repositioned to supine
--- NOTE | 2020-06-04 15:48 | NUR ---
DR MULLER IN UNIT-STATUS REPORT GIVEN
[2020-06-05] VITALS (23 sets, daily range): BP systolic 123–147; BP diastolic 50–73; BMI 25.0
[2020-06-05 04:43] LABS: BASOPHILS 0.2 % (0-2); EOSINOPHILS 0.5 % (0-7); IMMATURE GRANULOCYTES 1.5 % (0-5); LYMPHOCYTE ABS# 0.32 10x3/uL (1.18-3.74); MCHC 31.5 g/dL (31.0-37.0); MCV 92.2 fL (80.0-100.0); MEAN PLATELET VOLUME 10.5 fL (7.4-10.4); MONOCYTES 1.2 % (2-11); NEUTROPHIL ABS# 3.55 10x3/uL (1.56-6.13); NEUTROPHILS 88.6 % (40-80); RBC 2.93 10x6/uL (4.00-5.40); RDW 14.2 % (11.5-14.5)
[2020-06-05 04:57] LABS: HEMOGLOBIN 8.5 g/dL (12-16); PLATELET COUNT 102 10x3/uL (130-400)
[2020-06-05 05:36] LABS: ALBUMIN 1.8 g/dL (3.4-5.0); ALKALINE PHOSPHATASE 33 U/L (30-120); ALT (SGPT) 25 U/L (10-68); BILIRUBIN - TOTAL 0.41 mg/dL (0.2-1.3); CALC OSMOLALITY 295 mosm/kg (275-300); CHLORIDE - SERUM 109 mmol/L (98-107); GLUCOSE 152 mg/dL (74-106); POTASSIUM - SERUM 3.9 mmol/L (3.5-5.1); PROTEIN - SERUM 4.1 g/dL (6.4-8.2); SODIUM 143 mmol/L (136-145); UREA NITROGEN 36 mg/dL (7-18); VANCOMYCIN - RANDOM 18.5 ug/mL (10.0-20.0)
[2020-06-05 05:40] LABS: APTT 43.3 SECONDS (22.8-39.4)
[2020-06-05 05:46] LABS: INR 1.68 (0.85-1.17); PROTIME 18.4 SECONDS (11.6-15.0)
[2020-06-05 05:47] LABS: CARBON DIOXIDE 25.7 mmol/L (21.0-32.0); CREATINE KINASE 1845 UL (21-215); CREATININE - SERUM 1.8 mg/dL (0.6-1.3); eGFR NON AFRICAN AMERICAN 29 mL/min (90-120)
[2020-06-05 05:48] LABS: CALCIUM 6.4 mg/dL (8.5-10.1); CKMB 6.2 U/L (0.0-3.6)
--- NOTE | 2020-06-05 06:07 | NUR ---
EMILIE DUARTE THERAPEUTIC PROGRAM WORKER CALLED AND REPORTED CALCIUM OF 6.4 AND ALBUMIN 1.8. CORRECTED TO 8.16. NO ORDERS RECEIVED AT THIS TIME.
--- NOTE | 2020-06-05 18:45 | NUR ---
ART LINE D/C PER ORERS BY KAREN Estevez RN. NO SIGN OF BLEEDING. DRESSING PLACED, CDI.
[2020-06-06] VITALS (31 sets, daily range): BP systolic 108–157; BP diastolic 54–98
--- NOTE | 2020-06-06 01:23 | NUR ---
2300. TUBE FEEDING STOPPED. RESIDUAL GREATER THAN 300 AND GREEN IN COLOR. NGT CONNECTED TO LIS AND 1200 MLS COLLECTED PRIOR TO LEAVING PT SIDE. CANISTER CHANGED AND CONTINUES SUCTION AT THIS TIME. WILL CONTINUE TO OBSERVE.
[2020-06-06 04:54] LABS: BASOPHILS 0 % (0-2); EOSINOPHILS 0.9 % (0-7); HEMATOCRIT 23.7 % (36.0-48.0); IMMATURE GRANULOCYTES 6.6 % (0-5); LYMPHOCYTE ABS# 0.23 10x3/uL (1.18-3.74); LYMPHOCYTES 7.3 % (15-50); MCH 29.3 pg (26.0-34.0); MCHC 31.6 g/dL (31.0-37.0); MCV 92.6 fL (80.0-100.0); MEAN PLATELET VOLUME 10.1 fL (7.4-10.4); NEUTROPHIL ABS# 2.09 10x3/uL (1.56-6.13); NEUTROPHILS 66.2 % (40-80); RBC 2.56 10x6/uL (4.00-5.40); RDW 14.2 % (11.5-14.5); WBC 3.2 10x3/uL (4.8-10.8)
[2020-06-06 05:16] LABS: HEMOGLOBIN 7.5 g/dL (12-16); PLATELET COUNT 70 10x3/uL (130-400); PLATELET ESTIMATE DECREASED
[2020-06-06 05:22] LABS: ALBUMIN 2.1 g/dL (3.4-5.0); BILIRUBIN - TOTAL 0.56 mg/dL (0.2-1.3); PROTEIN - SERUM 4.3 g/dL (6.4-8.2)
[2020-06-06 05:45] LABS: ANION GAP 9.2 mmol/L (8-16); CREATININE - SERUM 1.3 mg/dL (0.6-1.3); POTASSIUM - SERUM 3.2 mmol/L (3.5-5.1)
[2020-06-06 05:47] LABS: CALCIUM 6.5 mg/dL (8.5-10.1)
--- NOTE | 2020-06-06 07:00 | NUR ---
RECEIVED BEDSIDE REPORT ON PATIENT AND ASSUMED CARE. PATIENT LETHARGIC BUT EASILY AROUSED, CONFUSED TO TIME AND SITUATION, SPEECH DIFFICULT TO UNDERSTAND, MOVES ALL EXTREMITIES. SPO2 97% ON 4 LPM O2 VIA NC. CM - ST RATE 110. BBS CLEAR AND DIMINISHED IN BASES, IV 18 GA TO RIGHT EJ, AND CVL TO RIGHT SUBCLAVIAN. INFUSING PRECIDEX AT 0.2 MCG/KG/HR (3.2 ML/HR), PROTONIX AT 8 MG/HR (10ML/HR), D51/2 NS WITH 50 MEQ SODIUM BICARB AT 150 ML/HR AND NS AT 10 ML/HR. ROGERS CATH IN PLACE WITH 125 ML COLEEN, CLEAR UOP NOTED. MIDLINE ABDOMINAL DRESSING, C/D/I DATED 06/06/20, MIKY DRAIN WITH 60 ML OF SEROUS FLUID EMPTIED. NG TUBE TO RIGHT NARE WITH PULMOCARE AT 20 ML/HR, PLACEMENT VERIFIED BY ASCULTATION, RESIDUAL NOTED TO BE 60 ML GREENISH BILE WITH SOME TUBE FEEDING NOTED. PATIENT IN RESTRAINTS. PATIENT TURNED AND REPOSITIONED IN BED. VSS. SCD'S IN PLACE AND ON. HEAD TO TOE ASSESSMENT COMPLETED.
--- NOTE | 2020-06-06 09:05 | NUR ---
PATIENT TURNED AND REPOSITIONED IN BED. MORNING MEDS PER MAR. VSS.
--- NOTE | 2020-06-06 09:44 | NUR ---
DR. DAWSON AND DR. BUSTILLOS AT ROOM UPDATED AND EXAMINE PATEINT. TO GIVE 1 UNIT OF PRBC'S TODAY. AT BEDSIDE, UPDATED AND QUESTIONS ANSWERED.
--- NOTE | 2020-06-06 10:08 | NUR ---
PATIENT INCONTINENT OF URINE THAT LEAKED AROUND PURWICK, LINENS CHANGED, PATIENT CLEANED AND REPOSITIONED IN BED.
--- NOTE | 2020-06-06 10:22 | NUR ---
TYPE AND CROSS DRAWN AND SENT TO LAB.
--- NOTE | 2020-06-06 11:22 | NUR ---
REASSESSMENT COMPLETED AND PATIENT TURNED AND REPOSITIONED IN BED. VSS.
--- NOTE | 2020-06-06 12:15 | NUR ---
UNIT 02/17 PRBC STARTED, VSS. PATIENT INCONTINENT OF STOOL, CLEANED AND LINENS CHANGED. PATIENT REPOSITIONED IN BED.
--- NOTE | 2020-06-06 12:33 | NUR ---
Nutrition Follow-up: POD 3 exlap, L hemicolectomy. TF stopped overnight 2/2 >300 mL residual; NGT was changed to LIS with 1200 mL collected. TF restarted @ 0600; 60 mL residual @ 0700 (bile with TF). Diet: Pulmocare @ 20 mL/hr Wt: 137# (06/06); 135# (06/03) Labs noted: K+ 3.2, BUN 28, GFR 42, Glu 124, Ca 6.5, Alb 2.1 Meds noted: Florajen, Protonix, Dulcolax, albumin, electrolyte protocol -Continue TF as tolerated. - follow-up: 06/07
--- NOTE | 2020-06-06 13:13 | NUR ---
PRBC'S INFUSING WITH NO S/S OF TRANSFUSION REACTION. PATIENT TURNED AND REPOSITIONED IN BED. VSS.
--- NOTE | 2020-06-06 14:00 | NUR ---
SCHEDULED AHEAD FOR DIALYSIS TODAY INSTRUCTED BY THIS NURSE LAST WEEK WHICH WORKED WELL. EMLA CREAM APPLIED 30 MINUTES PRIOR TO NEEDLE CANNULATION. DIALYSIS TREATMENT FOR 1.5 HOURS TODAY. REMOVED 1500L. ENDING B/P 148/88. INSTRUCTED JOSE TO CALL AGAIN ON FRIDAY AND SCHEDULE FOR TX NEXT WEEK.
--- NOTE | 2020-06-06 14:50 | NUR ---
UNIT / PRBC'S INFUSION COMPLETED. VSS. NO S/S OF TRANSFUSION REACTION.
--- NOTE | 2020-06-06 15:01 | NUR ---
REASSESSMENT COMPLETED. PATIENT TURNED AND REPOSITIONED IN BED. TUBE FEEDING BAG CHANGED. DR. DAWSON AT ROOM UPDATED.
--- NOTE | 2020-06-06 15:27 | EC ---
PATIENT:AWA ANTONIO DATE OF SERVICE: 06/03/20 SEX: F MEDICAL RECORD: [id number] DATE OF : [birth year] LOCATION:[place] [address] AGE OF PATIENT: 75 ADMISSION DATE: 06/03/20 REFERRING PHYSICIAN: INTERPRETING PHYSICIAN: DINORA BELLAMY MD ECHOCARDIOGRAM REPORT ECHO CHARGES 4 ECHO COMPLETE Date: 06/04/20 CLINICAL DIAGNOSIS: FL ECHOCARDIOGRAPHIC MEASUREMENTS (adult normal given) AC root (d.<3.7cm) 2.8 cm LV Septum d (<1.2 cm> 1.2 cm Valve Excursion 1.6 cm LV Septum (systole) 1.3 cm Left Atria (s.<4.0cm> 4.1 cm LVPW d(<1.2cm) 1.1 cm RV (d.<2.3cm) 3.3 cm LVPW (sytole) 1.2 cm LV diastole(<5.6CM) 4.1 cm MV E-F(>70mm/sec) cm LV systole 2.7 cm LVOT Diameter 1.5 cm MV exc.(>10mm) cm Est.ejection fraction (50-75%) 55 % DOPPLER: LVIT cm/sec A 82 cm/sec E 101 cm/sec LA cm/sec RVSP 37 mmHg LVOT 216 cm/sec AOP1/2T m/s Asc. Ao 272 cm/sec RVOT 120 cm/sec RA 4.1 cm/sec PA 135 cm/sec AV Gradient Peak 29 mmHg AV Mean 15 mmHg AV Area 1.1 cm MV Gradient Peak 6 mmHg MV Mean 2 mmHg MV Area cm COMMENTS: Risk Management Professional: Major FRANKLIN Director Of Media: Daphne Bellamy TAPE# Pericardial Effusion N DATE OF SERVICE: 06/04/2020 CLINICAL DIAGNOSIS: Abnormal troponin/sepsis/aortic regurgitation. INTERPRETATION: Technically difficult study. Overall, normal left ventricular chamber size and contractile function, ejection fraction of 55% to 60%. FINDINGS: Left atrial chamber appears normal. Right atrium and right ventricular chamber size and function appear normal. Mild thickening, calcification of the aortic valve -- aortic sclerosis. Trace to mild aortic ECHOCARDIOGRAM REPORT [id number] AWA ANTONIO regurgitation. Mitral valve appears normal. Trace mitral regurgitation. Tricuspid valve appears normal. Trace tricuspid regurgitation. Pulmonic valve appears normal. No pulmonary regurgitation. No pericardial effusion visualized. IMPRESSION: Technically difficult study. Overall, normal left ventricular chamber size and contractile function, ejection fraction of 55% to 60%. TRANSINT:[id number] Voice Confirmation ID: [id number] DOCUMENT ID: [id number] DINORA BELLAMY MD at 1527 CC: [id number] DICTATION DATE: 06/04/20 1603 COMPUTATIONAL THEORY SCIENTIST: 06/04/20 193 ADM IN [facility] [address] [id number]
--- NOTE | 2020-06-06 15:27 | CN ---
PATIENT NAME:AWA ANTONIO MEDICAL RECORD: [id number] : 45 LOCATION:[id number] ADMIT DATE: 06/03/20 ACCOUNT: [id number] CONSULTING PHYSICIAN: DINORA ROLON MD REFERRING PHYSICIAN: VIANNEY SANDERS MD DATE OF CONSULTATION: 06/04/2020 HISTORY OF PRESENT ILLNESS: The patient is a 75-year-old female with multiple medical problems including hypertension, atrial fibrillation, diabetes mellitus, hyperlipidemia, and hypothyroidism, who was brought to the Emergency Room with decreased level of consciousness. The patient had a CT scan abdominal which revealed ischemic bowel. The patient underwent emergent exploratory laparotomy. The patient noted to have an abnormal troponin. Asked to evaluate from a cardiovascular standpoint. The patient COVID evaluation pending. Chart reviewed. PAST MEDICAL HISTORY: Significant for; 1. Abnormal troponin -- multifactorial. 2. Sepsis. 3. History of atrial fibrillation. 4. Diabetes mellitus. 5. Hypertension. 6. Metabolic acidosis. 7. Ischemic bowel, status post emergent abdominal exploratory laparotomy. 8. Hypotension/sepsis -- pressor dependent. LABORATORY DATA: White blood cell count 3.0, hemoglobin and hematocrit 10.8 and 33.7, platelet count 160. Sodium 140, potassium 4.0, BUN 42, creatinine - 2.6, magnesium 1.3, AST 122, troponin - 1.5. CK 1964. BNP 25,000. Serum protein 4.2. Serology, COVID pending. EKG unavailable. Telemetry, sinus tachycardia. ASSESSMENT AND PLAN: 1. Abnormal troponin -- multifactorial -- probable secondary to sepsis/acute renal insufficiency/possible type 2 myocardial infarction/demand ischemia. 2. Sepsis. 3. Ischemic bowel - status post emergent abdominal exploratory surgery. 4. History of atrial fibrillation. 5. History of hypertension, currently hypotension. 6. Hypotension -- pressor support. 7. Respiratory failure/intubation/ventilatory support. 8. Diabetes mellitus. 9. Hypothyroidism. 10. Renal insufficiency. 11. COVID evaluation pending. PLAN: Continue current supported care and medical treatment at this time. The patient will be scheduled for echocardiogram to assess LV function and valvular status. Further recommendation as clinically indicated. Thank you for allowing me to participate in the care of this patient. CONSULT REPORT [id number] AWA ANTONIO TRANSINT:[id number] Voice Confirmation ID: [id number] DOCUMENT ID: [id number] DINORA ROLON MD at 1527 CC: [id number] DICTATION DATE: 06/04/20 1540 OFFICE TECHNOLOGIST: 06/04/20 193 ADM IN [facility] [address] [id number]
--- NOTE | 2020-06-06 16:50 | NUR ---
PATIENT TURNED AND REPOSITIONED IN BED. VSS. NO NEEDS AT THIS TIME.
[2020-06-07] VITALS (24 sets, daily range): BP systolic 88–134; BP diastolic 56–99
--- NOTE | 2020-06-07 02:37 | NUR ---
PT GIVEN CHG BATH, WITH COMPLETE LINEN CHANGE. WHEN LOOSENED FROM RESTRAINTS AND TURNED ONTO SIDE PT GRABBED NGT AND PULLED. NEW NGT PLACED AND XRAY ORDERED FOR PLACEMENT VARIFICATION. CVL DRESSING CHANGED.
[2020-06-07 05:55] LABS: LYMPHOCYTE ABS# 0.55 10x3/uL (1.18-3.74); MCH 29.2 pg (26.0-34.0); MCHC 31.5 g/dL (31.0-37.0); MCV 92.4 fL (80.0-100.0); MEAN PLATELET VOLUME 10.6 fL (7.4-10.4); NEUTROPHIL ABS# 3.39 10x3/uL (1.56-6.13); RDW 14.9 % (11.5-14.5)
[2020-06-07 06:20] LABS: BILIRUBIN - TOTAL 1.68 mg/dL (0.2-1.3); CALCIUM 7.1 mg/dL (8.5-10.1); CARBON DIOXIDE 23.6 mmol/L (21.0-32.0); PROTEIN - SERUM 5.1 g/dL (6.4-8.2)
[2020-06-07 06:22] LABS: ALBUMIN 2.8 g/dL (3.4-5.0); ANION GAP 16.6 mmol/L (8-16); POTASSIUM - SERUM 4.2 mmol/L (3.5-5.1)
[2020-06-07 06:32] LABS: HEMATOCRIT 31.7 % (36.0-48.0); PLATELET COUNT 54 10x3/uL (130-400); RBC 3.43 10x6/uL (4.00-5.40); WBC 5.2 10x3/uL (4.8-10.8)
--- NOTE | 2020-06-07 09:00 | NUR ---
PATIENT EYES OPEN UNABLE TO UNDERSTAND PATIENT, BUT REPEATING SAME NAME. RESISTANT TO CARE. NG INFUSING WITH 20 ML OF PULMOCARE. RIGHT SUBCLAVIAN INFUSING WITH PROTONIX AT 8 MG HOUR, NS AT 60 ML HOUR, AND PRECEDEX AT 0.4MCG/KG/MIN. SCD ON LOWER LEGS. HEEL PROTECTORS IN PLACE.MONITOR ST RATE 128. RESP RATE IN 30'S. MOANS, MORPHINE GIVEN FOR PAIN. ROGERS CATH PATENT. NO SKIN BREAKDOWN OR REDNESS NOTED. COLOSTOMY WITH SMALL AMOUNT BROWN LIQUID NOTED.
--- NOTE | 2020-06-07 11:00 | NUR ---
HERE UPDATE GIVEN.
--- NOTE | 2020-06-07 11:05 | NUR ---
Nutrition Follow-up: POD 4 L hemicolectomy. Has not been tolerating TF; had 800 mL OP via NGT over 12h. TF restarted @ 0500. Discussed in IDT rounding; TPN to be discussed with surgery. Diet: Pulmocare 20 mL/hr Wt: 153.2# (06/07); 135# (06/03) Labs noted: Na 146, Glu 123, Ca 7.1, Alb 2.8 Meds noted: Dulcolax, Protonix, Florajen, albumin, NS @ 60, electrolyte protocol -TF as tolerated. Awaiting surgery decision re: TPN. -RD follow-up: 06/09
--- NOTE | 2020-06-07 13:30 | NUR ---
PATIENT PULLED NG TUBE OUT. ATTEMPTED TO REPLACE NG, MEETING A GREAT AMOUNT OF RESISTANCES WITH BLEEDING FROM NOSE. CALLED DR. HAJI STATES OK TO LEAVE OUT FOR NOW. AT BEDSIDE.
[2020-06-07 13:55] LABS: ANISOCYTOSIS OCC; HYPOCHROMASIA OCC; LYMPHOCYTES 17 % (15-50); MONOCYTES 10 % (2-11); NEUTROPHILS 65 % (40-80); PLATELET ESTIMATE DECREASED
--- NOTE | 2020-06-07 18:10 | NUR ---
HEART RATE 190'S IRREGULAR. BP 111/73, NO CHANGE IN RESP RATE. DR. DAWSON NOTIFIED. LOPRESSOR 5 MG IV GIVEN, WITH RETURN TO SR RATE IN 80'S BP 89/56 WITH MAP OF 64. WILL MONITOR BLOOD PRESSURE. TPN STARTED AT 40 ML HOUR PER BROWN PORT. IV RIGHT EJ REMOVED.
--- NOTE | 2020-06-07 19:00 | NUR ---
PT RESTING IN BED, CALM AT THIS TIME, PT DOES NOT FOLLOW COMMANDS BUT BECOMES RESTLESS WHILE REPOSTIONING. BILAT SOFT WRIST RESTRAINTS SECURED. SP02 98% WITH NC @3L. ROGERS IN PLACE WITH DECREASED UOP, CLOUDY AND COLEEN. RIGHT SC CVL WITH TPN @40ML/HR, NS @60ML/HR, PROTONIX @ 8MG/HR, PRECEDEX @ 0.4MCG/KG/HR. DRESSING X2 MIDLINE ABD WITH DRAINAGE NOTED, MIKY DRAIN BELOW LOWER DRESSING COMPRESSED WITH SEROUS OUTPUT NOTED. COLOSTOMY TO RIGHT QUADRAINT WITH BROWN LIQUID STOOL PRESENT. NO DISTRESS NOTED. WILL CONT TO ASSESS.
--- NOTE | 2020-06-07 22:15 | NUR ---
DR DAWSON ON PHONE, UPDATED ON PT CONDITION AND CURRENT VITALS, MD INSTRUCTED TO START LEVOPHED GTT IF NEEDED FOR MAP BELOW 65. NO OTHER ORDERS NOTED AT THIS TIME.
--- NOTE | 2020-06-07 23:40 | NUR ---
DRESSING CHANGE TO ABD PREFORMED, SANTANA INTACT TO UPPER ABD AND LOWER ABD, MID ABD OPEN AND WET TO DRY PREFORMED, SITE OF MIKY DRAIN WITH SEROUS DRAINAGE NOTED, 60ML EMPTIED AT THIS TIME, GAUZE OVER SANTANA AND AROUND MIKY DRAIN AND TEGRADERM PLACED ON TOP. PT GRIMICED AND BECAME RESTLESS WITH CARE, PRN MORPHINE GIVEN AND PRECEDEX INCREASED. WILL CONT TO MONITOR.
[2020-06-08] VITALS (23 sets, daily range): BP systolic 111–148; BP diastolic 68–783
--- NOTE | 2020-06-08 03:30 | NUR ---
full bed bath with soap and water and CHG given, linen and gown changed, hair washed and oral care preformed. heel and elbow protectors applied. no breakdown noted to buttocks or other pressure areas. pt turned q2h. decreased precedex. will cont to monitor.
[2020-06-08 04:43] LABS: BASOPHILS 0.1 % (0-2); EOSINOPHILS 0 % (0-7); HEMATOCRIT 28.7 % (36.0-48.0); HEMOGLOBIN 9.3 g/dL (12-16); IMMATURE GRANULOCYTES 0.4 % (0-5); LYMPHOCYTE ABS# 0.96 10x3/uL (1.18-3.74); LYMPHOCYTES 13.5 % (15-50); MCH 29.9 pg (26.0-34.0); MCHC 32.4 g/dL (31.0-37.0); MCV 92.3 fL (80.0-100.0); MEAN PLATELET VOLUME 10.8 fL (7.4-10.4); MONOCYTES 9.2 % (2-11); NEUTROPHIL ABS# 5.44 10x3/uL (1.56-6.13); NEUTROPHILS 76.8 % (40-80); RBC 3.11 10x6/uL (4.00-5.40); RDW 14.8 % (11.5-14.5)
[2020-06-08 05:00] LABS: ANION GAP 17.6 mmol/L (8-16); BILIRUBIN - TOTAL 2.06 mg/dL (0.2-1.3); CARBON DIOXIDE 22.4 mmol/L (21.0-32.0)
[2020-06-08 05:06] LABS: PLATELET COUNT 69 10x3/uL (130-400); PLATELET ESTIMATE DECREASED; WBC 7.1 10x3/uL (4.8-10.8)
[2020-06-08 05:09] LABS: CALCIUM 6.7 mg/dL (8.5-10.1); CREATININE - SERUM 1.4 mg/dL (0.6-1.3)
[2020-06-08 07:42] LABS: MAGNESIUM - SERUM 1.4 mg/dL (1.8-2.4); PHOSPHOROUS 3.1 mg/dL (2.5-4.9)
--- NOTE | 2020-06-08 11:09 | NUR ---
Nutrition Follow-up: POD 5. Noted pt removed NGT yesterday and it was unable to be replaced. Receiving TPN @ 40 mL/hr + lipids q 48 h. Elev LFTs and renal function worsening. Discussed in IDT. Per joselyn Trevino to increase TPN rate; micronutrients to be adjusted per pharmacy. Wt: 153.2# (06/07) Labs noted: Na 147, K+ 4.0, Cl 111, CO2 22.4, BUN 47, Cre 1.4, GFR 39, Glu 269, Ca 6.7, Alb 3.0, elev LFTs Meds noted: Florajen, Dulcolax, Protonix, Humalog, electrolyte protocol -Increase TPN rate to 60 mL/hr to better meet pt's needs; TPN with lipids provides 1517 kcal & 72 g protein daily. Micronutrients being managed by pharmacy. - follow-up: 06/09
--- NOTE | 2020-06-08 19:00 | NUR ---
BEDSIDE SHIFT REPORT RECIEVED, PT RESTING IN BED WITH EYES OPEN, WILL TIP PRINTER HANDS ON COMMAND, NO VERBALIZATIONS AT THIS TIME. BILAT WRIST RESTRAINTS SECURED. RIGHT SC CVL WITH PROTONIX @8MG/HR, PRECEDEX @ 0.4MCG/KG/HR, NS @60ML/HR, TPN @ 60ML/HR. 02 VIA NC @2L. PERRLA, DRESSING TO ABDOMEN WITH SEROUS DRAINAGE PRESENT, WILL CHANGE DRESSING THIS SHIFT OF CARE, RIGHT COLOSTOMY WITH BROWN LIQUID STOOL PRESENT, MIKY COMPRESSED WITH 60ML SEROUS OUTPUT EMPTIED AT THIS TIME. ROGERS WITH COLEEN URINE OUTPUT. NO DESTRESS NOTED AT THIS TIME, WILL CONT TO MONITOR.
--- NOTE | 2020-06-08 21:34 | NUR ---
PT BP ELEVATED WITH SBP IN 150'S, FACIAL GRIMICING, PRN MORPHINE GIVEN.
--- NOTE | 2020-06-08 22:59 | NUR ---
DR DAWSON CALLED TO CHECK ON PT'S REPORTED PT HR 100-115, WITH LESS THEN [address] IN 140'S, REQUESTED PRN IF PT HR ELEVATES ABOVE 150 DURING NIGHT, SAID GIVE PT IVP METOPROLOL 2.5MG AND REPEAT X1 FOR ELEVATED HR.
[2020-06-09] VITALS (23 sets, daily range): BP systolic 123–167; BP diastolic 62–98
[2020-06-09 05:19] LABS: BASOPHILS 0.3 % (0-2); EOSINOPHILS 0 % (0-7); HEMATOCRIT 28.5 % (36.0-48.0); IMMATURE GRANULOCYTES 0.9 % (0-5); LYMPHOCYTE ABS# 0.65 10x3/uL (1.18-3.74); LYMPHOCYTES 9.5 % (15-50); MCH 29.5 pg (26.0-34.0); MCHC 31.6 g/dL (31.0-37.0); MCV 93.4 fL (80.0-100.0); MEAN PLATELET VOLUME 11.9 fL (7.4-10.4); NEUTROPHIL ABS# 5.33 10x3/uL (1.56-6.13); NEUTROPHILS 78.3 % (40-80); PLATELET COUNT 65 10x3/uL (130-400); RBC 3.05 10x6/uL (4.00-5.40); WBC 6.8 10x3/uL (4.8-10.8)
--- NOTE | 2020-06-09 05:21 | NUR ---
FULL BED BATH, LINEN AND GOWN CHANGED. DRESSING TO ABD CHANGED. RESTRAINTS REMOVED DURING ACTIVITY, PT DID NOT ATTEMPT TO PULL AT LINES, DRESSINGS OR TUBES, RESTRAINTS D/C'D AND MITTENS PLACED TO ENSURE SAFETY. WILL CONT TO MONITOR.
[2020-06-09 05:35] LABS: ALBUMIN 3.2 g/dL (3.4-5.0); BILIRUBIN - TOTAL 1.51 mg/dL (0.2-1.3); CALCIUM 7.4 mg/dL (8.5-10.1); CARBON DIOXIDE 22.6 mmol/L (21.0-32.0); CREATININE - SERUM 1.3 mg/dL (0.6-1.3); POTASSIUM - SERUM 3.6 mmol/L (3.5-5.1); PROTEIN - SERUM 4.9 g/dL (6.4-8.2)
--- NOTE | 2020-06-09 09:29 | NUR ---
DR. HAJI AT BEDSIDE, UPDATE GIVEN TO FAMILY, NO NEW ORDERS
--- NOTE | 2020-06-09 10:18 | NUR ---
Nutrition Follow-up: POD 6 L colectomy. Receiving TPN @ 60 + 250 mL 20% lipids q 48h; provides 1517 kcal & 72 g protein daily. Discussed in IDT rounds. Na elevated; IVF changed to 1/2NS. Glu elevated; +insulin to TPN. Continues to have hypoactive BS but but nursing reports some OP in colostomy yesterday. Diet: NPO Wt: 155# (06/09); 136# (06/04) Labs noted: Na 150, K+ 3.6, Cl 115, CO2 22.6, BUN 64, Cre 1.3, GFR 42, Glu 266, Ca 7.4, Alb 3.2, elev LFTs Meds noted: Humalog, Lasix, Solumedrol, Florajen, Protonix, Dulcolax, albumin, 1/2NS @ 60 -Continue TPN @ current rate. Insulin to be added. Micronutrients per pharmacy. Hopeful to be able to transition to enteral feeding soon, either PO or TF. - follow-up: 06/12
--- NOTE | 2020-06-09 19:15 | NUR ---
RECEIVED CARE OF PT, ASSESSMENT PER FLOWSHEET. PT POSITIONED FOR COMFORT, ORAL CARE PROVIDED, AT BEDSIDE, DENIES ANY NEEDS AT THIS TIME.
[2020-06-10] VITALS (24 sets, daily range): BP systolic 131–152; BP diastolic 76–98
[2020-06-10 05:55] LABS: HEMATOCRIT 29.7 % (36.0-48.0); HEMOGLOBIN 9.8 g/dL (12-16); MCH 31.5 pg (26.0-34.0); PLATELET COUNT 62 10x3/uL (130-400); RBC 3.11 10x6/uL (4.00-5.40); RDW 15.6 % (11.5-14.5)
[2020-06-10 05:56] LABS: MCV 95.5 fL (80.0-100.0); WBC 13.1 10x3/uL (4.8-10.8)
[2020-06-10 05:58] LABS: EOSINOPHILS 2 % (0-7); LYMPHOCYTES 13 % (15-50); MONOCYTES 12 % (2-11); NEUTROPHILS 73 % (40-80); PLATELET ESTIMATE DECREASED
[2020-06-10 07:12] LABS: CREATININE - SERUM 1.4 mg/dL (0.6-1.3)
[2020-06-10 07:13] LABS: POTASSIUM - SERUM 4.8 mmol/L (3.5-5.1)
[2020-06-10 07:14] LABS: ANION GAP 24.9 mmol/L (8-16); CALCIUM 7.6 mg/dL (8.5-10.1); CARBON DIOXIDE 14.9 mmol/L (21.0-32.0)
[2020-06-10 07:15] LABS: BILIRUBIN - TOTAL 3.19 mg/dL (0.2-1.3)
[2020-06-10 07:16] LABS: PROTEIN - SERUM 4.9 g/dL (6.4-8.2)
--- NOTE | 2020-06-10 10:43 | NUR ---
Pt is going to CT.
[2020-06-10 14:32] LABS: ANION GAP 14.2 mmol/L (8-16); CALCIUM 7.8 mg/dL (8.5-10.1); CARBON DIOXIDE 25.9 mmol/L (21.0-32.0); CREATININE - SERUM 1.6 mg/dL (0.6-1.3); POTASSIUM - SERUM 4.1 mmol/L (3.5-5.1)
--- NOTE | 2020-06-10 21:03 | NUR ---
DR GARCIA NOTIFIED REGARDING INCREASE AND CHANGE IN TYPE OF OUTPUT FROM MIKY DRAIN, NO CHANGE IN OTHER VS NOTED, NO ORDERS RECEIVED AT THIS TIME.
[2020-06-11] VITALS (24 sets, daily range): BP systolic 117–146; BP diastolic 67–93
[2020-06-11 05:25] LABS: ALBUMIN 3.6 g/dL (3.4-5.0); BILIRUBIN - TOTAL 3.5 mg/dL (0.2-1.3); CALCIUM 7.8 mg/dL (8.5-10.1); CARBON DIOXIDE 25.8 mmol/L (21.0-32.0); CREATININE - SERUM 1.6 mg/dL (0.6-1.3); MAGNESIUM - SERUM 1.5 mg/dL (1.8-2.4); POTASSIUM - SERUM 3.8 mmol/L (3.5-5.1); PROTEIN - SERUM 4.9 g/dL (6.4-8.2)
[2020-06-11 07:58] LABS: BASOPHILS 0.7 % (0-2); EOSINOPHILS 0 % (0-7); HEMATOCRIT 27.8 % (36.0-48.0); HEMOGLOBIN 8.8 g/dL (12-16); IMMATURE GRANULOCYTES 4.5 % (0-5); LYMPHOCYTE ABS# 1.03 10x3/uL (1.18-3.74); LYMPHOCYTES 9.6 % (15-50); MCH 29.5 pg (26.0-34.0); MCHC 31.7 g/dL (31.0-37.0); MONOCYTES 5.8 % (2-11); NEUTROPHIL ABS# 8.55 10x3/uL (1.56-6.13); NEUTROPHILS 79.4 % (40-80); RBC 2.98 10x6/uL (4.00-5.40); RDW 15.4 % (11.5-14.5); WBC 10.8 10x3/uL (4.8-10.8)
[2020-06-11 08:24] LABS: MCV 93.3 fL (80.0-100.0); PLATELET COUNT 40 10x3/uL (130-400)
[2020-06-11 08:30] LABS: PLATELET ESTIMATE DECREASED
--- NOTE | 2020-06-11 10:09 | NUR ---
CONSULT NOTED FOR DR MYERS. CALLED HIS [employer], PAGED AT THIS TIME.
--- NOTE | 2020-06-11 12:12 | NUR ---
PER DR GILMORE, I CALLED DR GARCIA TO SEE IF IT WAS OKAY TO START PT ON LACTULOSE ENEMAS SINCE PT UNABLE TO TOLERATE PO MEDS AND AMMONIA LEVEL IS 90. PER DR GARCIA THIS IS OKAY TO DO. ORDERS FOR LACTULOSE ENEMA RECIEVED.
[2020-06-11 14:33] LABS: D-DIMER-QUANTITATIVE 15.54 ug/mLFEU (0.20-0.54)
--- NOTE | 2020-06-11 16:52 | NUR ---
PTS BP IS 116/72 PT STATES HER HEADACHE IS GONE. SHE IS SMILING CURRENTLY. SHE DENIES ANY CURRENT NEEDS. WILL CONTINUE PLAN OF CARE.
--- NOTE | 2020-06-11 19:10 | NUR ---
DR MORENO ON UNIT TO SEE PT, UPDATED AND ALL QUESTIONS ANSWERED.
--- NOTE | 2020-06-11 19:34 | NUR ---
DR MYERS PAGED REGARDING LAB RESULTS, NO FURTHER ORDERS RECEIVED AT THIS TIME. DR BARBER ON UNIT TO SEE PT.
[2020-06-12] VITALS (22 sets, daily range): BP systolic 129–153; BP diastolic 73–91
[2020-06-12 05:40] LABS: ALBUMIN 3.6 g/dL (3.4-5.0); ANION GAP 10.3 mmol/L (8-16); BASOPHILS 0.2 % (0-2); BILIRUBIN - TOTAL 3.17 mg/dL (0.2-1.3); CALCIUM 8.2 mg/dL (8.5-10.1); CREATININE - SERUM 1.2 mg/dL (0.6-1.3); EOSINOPHILS 0 % (0-7); HEMOGLOBIN 8.5 g/dL (12-16); LYMPHOCYTE ABS# 0.75 10x3/uL (1.18-3.74); LYMPHOCYTES 6.1 % (15-50); MCH 29.5 pg (26.0-34.0); MCHC 31.5 g/dL (31.0-37.0); MCV 93.8 fL (80.0-100.0); MONOCYTES 4.4 % (2-11); NEUTROPHIL ABS# 10.82 10x3/uL (1.56-6.13); NEUTROPHILS 87.3 % (40-80); PHOSPHOROUS 2.8 mg/dL (2.5-4.9); POTASSIUM - SERUM 3.3 mmol/L (3.5-5.1); PROTEIN - SERUM 5.1 g/dL (6.4-8.2); RBC 2.88 10x6/uL (4.00-5.40); RDW 15.9 % (11.5-14.5); WBC 12.4 10x3/uL (4.8-10.8)
[2020-06-12 05:41] LABS: PLATELET COUNT 54 10x3/uL (130-400)
--- NOTE | 2020-06-12 10:05 | NUR ---
Nutrition follow-up: Chart and labs reviewed TPN adjusted due to low K; PO4 added Pt with BIPAP in place; NPO TPN continues @ 60 ml/hr Intralipids restarted today per Dr. Lane RDN follow-up: 06/13/20
--- NOTE | 2020-06-12 10:52 | NUR ---
ABD INCISION DRESSING CHANGED. NEW GOWN PLACED ON PT. TURNED PT. PILLOWS BRIDGING HEELS AND UNDER ARMS TO ELEVATE BILAT ARMS TO ASSIST WITH SWELLING.
--- NOTE | 2020-06-12 12:26 | NUR ---
DR GARCIA AT BEDSIDE TO INTUBATE PT.
--- NOTE | 2020-06-12 13:20 | NUR ---
PT INTUBATED AND DR GARCIA AT BEDSIDE PERFORMING BRONCH
[2020-06-13] VITALS (23 sets, daily range): BP systolic 139–157; BP diastolic 83–98
--- NOTE | 2020-06-13 00:11 | NUR ---
I have reviewed this patient and I concur with the Shift Assessment completed by the Licensed Practical Nurse today this shift.
[2020-06-13 04:35] LABS: INR 2.42 (0.85-1.17); PROTIME 24.5 SECONDS (11.6-15.0)
[2020-06-13 04:40] LABS: BASOPHILS 0.2 % (0-2); EOSINOPHILS 0 % (0-7); HEMATOCRIT 26.4 % (36.0-48.0); HEMOGLOBIN 8.5 g/dL (12-16); IMMATURE GRANULOCYTES 1.2 % (0-5); LYMPHOCYTE ABS# 0.47 10x3/uL (1.18-3.74); LYMPHOCYTES 3.8 % (15-50); MCH 29.4 pg (26.0-34.0); MCHC 32.2 g/dL (31.0-37.0); NEUTROPHIL ABS# 11.01 10x3/uL (1.56-6.13); NEUTROPHILS 89.8 % (40-80); RBC 2.89 10x6/uL (4.00-5.40); RDW 15.5 % (11.5-14.5); WBC 12.3 10x3/uL (4.8-10.8)
[2020-06-13 04:48] LABS: MCV 91.3 fL (80.0-100.0); PLATELET COUNT 66 10x3/uL (130-400)
[2020-06-13 04:59] LABS: ALBUMIN 3.8 g/dL (3.4-5.0); ANION GAP 15.6 mmol/L (8-16); BILIRUBIN - TOTAL 3.89 mg/dL (0.2-1.3); CALCIUM 8.9 mg/dL (8.5-10.1); CARBON DIOXIDE 24.9 mmol/L (21.0-32.0); CREATININE - SERUM 0.9 mg/dL (0.6-1.3); POTASSIUM - SERUM 3.5 mmol/L (3.5-5.1); PROTEIN - SERUM 5.4 g/dL (6.4-8.2)
[2020-06-13 05:03] LABS: PHOSPHOROUS 1.9 mg/dL (2.5-4.9)
--- NOTE | 2020-06-13 07:15 | NUR ---
RESTING COMFORTABLE, ORAL CARE PROVIDED AND PT REPOSITIONED, HOB ELEVATED, WILL MONITOR
--- NOTE | 2020-06-13 07:22 | NUR ---
Nutrition follow-up: Pt s/p broch per Dr. Lane Reviewed Dr. Aguirre note to decrease protein in TPN due to elevated BUN. RDN will decrease TPN rate to 50 ml/hr to decrease protein intake to 60 gm/24 hr to provide: 0.83 gm protein per Actual BW of 158# Labs reviewed; PO4 low; Na, Cl continue high. RDN will order TPN @ 50 ml/hr Follow-up/reassess: 06/14/20
[2020-06-13 09:12] LABS: ANA REFLEX - DIRECT Negative (Negative)
--- NOTE | 2020-06-13 14:00 | NUR ---
resting comfortable, no distress noted, call light in reach, will monitor
[2020-06-13 14:10] LABS: ACID FAST SMEAR Negative (()); AFB SPECIMEN PROCESSING Concentration (())
--- NOTE | 2020-06-13 16:30 | NUR ---
TUBE FEEDS STARTED AT THIS TIME VIA OG TUBE, SUPLENA AT 10ML/HR, HOB ELEVATED, WILL MONITOR
--- NOTE | 2020-06-13 19:00 | NUR ---
BEDSIDE REPORT COMPLETED WITH OFF GOING NURSE. PT IS LAYING IN BED INTUBATED WITH MILD SEDATION. NO NEEDS NOTED AT THIS TIME. NO S/S OF DISTRESS. WILL CONTINUE TO MONITOR.
[2020-06-14] VITALS (24 sets, daily range): BP systolic 127–152; BP diastolic 72–97
--- NOTE | 2020-06-14 01:45 | NUR ---
ENTERED ROOM TO TURN AND REPOSITION PT. IT WAS NOTED THAT THERE WAS A SMALL AMOUNT OF FORMED STOOL FROM THE RECTUM. PT WAS CLEANED AND REPOSITIONED AT THIS TIME. DURING THIS TIME IT WAS NOTED THAT PT FELT HOT TO THE TOUCH. TEMP CHECKED AND READ AT 102.2. RESIDUALS CHECKED AT THIS TIME ALSO AND IT WAS NOTED THERE WAS 575 IN RESIDUALS. TUBE FEED STOPPED. PAGED EMILIE VU FOR ORDERS REGARDING PT TEMP. ORDERS RECEIVED. WILL CONTINUE TO MONITOR.
[2020-06-14 04:48] LABS: BASOPHILS 0.3 % (0-2); EOSINOPHILS 0 % (0-7); HEMATOCRIT 25.5 % (36.0-48.0); HEMOGLOBIN 8.3 g/dL (12-16); IMMATURE GRANULOCYTES 1.3 % (0-5); LYMPHOCYTE ABS# 1.17 10x3/uL (1.18-3.74); LYMPHOCYTES 7.9 % (15-50); MCH 30.3 pg (26.0-34.0); MCHC 32.5 g/dL (31.0-37.0); MCV 93.1 fL (80.0-100.0); MONOCYTES 5.1 % (2-11); NEUTROPHIL ABS# 12.62 10x3/uL (1.56-6.13); NEUTROPHILS 85.4 % (40-80); RBC 2.74 10x6/uL (4.00-5.40); RDW 15.6 % (11.5-14.5); WBC 14.8 10x3/uL (4.8-10.8)
[2020-06-14 05:04] LABS: PLATELET COUNT 112 10x3/uL (130-400)
[2020-06-14 05:21] LABS: ALBUMIN 3.8 g/dL (3.4-5.0); ANION GAP 18.3 mmol/L (8-16); BILIRUBIN - TOTAL 6.16 mg/dL (0.2-1.3); CALCIUM 8.3 mg/dL (8.5-10.1); CARBON DIOXIDE 22.2 mmol/L (21.0-32.0); POTASSIUM - SERUM 4.5 mmol/L (3.5-5.1)
[2020-06-14 05:28] LABS: PHOSPHOROUS 3.2 mg/dL (2.5-4.9); PROTEIN - SERUM 5.2 g/dL (6.4-8.2)
--- NOTE | 2020-06-14 08:01 | NUR ---
Nutrition reassessment: Intubated, sedated with propofol @ 8.7 ml/hr TPN now @ 50 ml/hr with intralipids 20% 250 ml q 48 hours Labs reviewed Wt: 160# Trickle TF of Suplena started 06/13/20 @ 10 ml/hr; on hold now due to elevated residuals > 500 ml. Nutritionals needs based on AdjBW of 56 [id number] kcal (25-35 AdjBW), 45-56 gm protein (0.8-1.0 gm/kg AdjBW) Nutrition goals: - TF tolerance of Suplena trickle feeds within 24 hours - Stable wt - Meet est fluid needs Interventions: TPN infusing @ 50 ml/hr with intralipids q 48 hours Trickle feeds of Suplena as tolerated to stimulate gut function Recommendations: Will continue current TPN formula today @ 50 ml/hr with intralipids q 48, propofol is providin kcal, 60 gms protein (73-102% of estimated kcal needs) and (107-133% estimated protein needs) Checking TG today; will discontinue lipids if elevated. RDN follow-up: 06/15/20
[2020-06-14 10:12] LABS: FUNGUS STAIN Final report (())
[2020-06-14 16:09] LABS: HEPARIN INDUCED PLATELET AB 0.084 OD (0.000-0.400)
[2020-06-15] VITALS (23 sets, daily range): BP systolic 126–148; BP diastolic 67–94
[2020-06-15 04:53] LABS: BASOPHILS 0.3 % (0-2); EOSINOPHILS 0.1 % (0-7); HEMATOCRIT 26.3 % (36.0-48.0); HEMOGLOBIN 8.1 g/dL (12-16); IMMATURE GRANULOCYTES 0.7 % (0-5); LYMPHOCYTE ABS# 1.13 10x3/uL (1.18-3.74); LYMPHOCYTES 9.6 % (15-50); MCH 29.5 pg (26.0-34.0); MCHC 30.8 g/dL (31.0-37.0); MONOCYTES 5.5 % (2-11); NEUTROPHIL ABS# 9.87 10x3/uL (1.56-6.13); NEUTROPHILS 83.8 % (40-80); RBC 2.75 10x6/uL (4.00-5.40); RDW 18.2 % (11.5-14.5); WBC 11.8 10x3/uL (4.8-10.8)
[2020-06-15 04:54] LABS: MCV 95.6 fL (80.0-100.0); PLATELET COUNT 87 10x3/uL (130-400)
[2020-06-15 04:55] LABS: PLATELET ESTIMATE DECREASED
[2020-06-15 05:02] LABS: ALBUMIN 3.6 g/dL (3.4-5.0); ANION GAP 14.4 mmol/L (8-16); BILIRUBIN - TOTAL 3.99 mg/dL (0.2-1.3); CALCIUM 8.5 mg/dL (8.5-10.1); CARBON DIOXIDE 25.2 mmol/L (21.0-32.0); CREATININE - SERUM 0.8 mg/dL (0.6-1.3); MAGNESIUM - SERUM 2.1 mg/dL (1.8-2.4); PHOSPHOROUS 3.5 mg/dL (2.5-4.9); POTASSIUM - SERUM 4.6 mmol/L (3.5-5.1); PROTEIN - SERUM 5.2 g/dL (6.4-8.2)
[2020-06-15 05:36] LABS: PROTIME 21.1 SECONDS (11.6-15.0)
--- NOTE | 2020-06-15 07:30 | NUR ---
PT RESTING COMFORTABLE, ORAL CARE PROVIDED, REPOSITONED AT THIS TIME, WILL MONITOR
--- NOTE | 2020-06-15 08:52 | NUR ---
Nutrition reassment: Intubated, sedated with propofol @ 8.4 ml/hr TPN continues @ 50 ml/hr TF of Suplena continues to be off due to pt intolerance Reglan added 06/14/20 Lipids discontinued due to elevated TG Wt: 160# Insulin increased to 30 units per 24 hours in TPN (25 units per 1000 ml bag) Estimated nutritional needs remain the same as last reassesment 06/14/20 TPN + propofol providin kcal (meesting 65-91% of estimated kcal needs) 60 gm protein (107-133% estimated protein needs) Pt currently meeting, exceeding nutrition goals Will continue current TPN today and follow-up: 06/16/20
--- NOTE | 2020-06-15 09:00 | NUR ---
MIKY DRAIN DC'D AT THIS TIME, GAUZE DRESSING APPLIED TO SITE
--- NOTE | 2020-06-15 12:00 | NUR ---
DR HAJI AT BEDSIDE TO REPLACE CVL, PT TOLERATED WELL
--- NOTE | 2020-06-15 14:00 | NUR ---
oral care provided and pt repositioned at this time and butt paste applied to coccyx, will monitor
--- NOTE | 2020-06-15 16:30 | NUR ---
tube feeds started at this time, o residual noted at this time, glucerna 1.5 at 10ml/hr infusing via OG tube, HOB elevated, will monitor
[2020-06-16] VITALS (20 sets, daily range): BP systolic 110–151; BP diastolic 71–100
--- NOTE | 2020-06-16 00:23 | NUR ---
RESTRAINTS WERE REMOVED AT APPROX. 1900 AFTER ASSESSMENT . ORDER WAS NOT DC'D IN SYSTEM UNTIL 0025.
--- NOTE | 2020-06-16 04:58 | NUR ---
PATIENT GIVEN BATH AND NEW DRESSING APPLIED TO ABDOMEN.
--- NOTE | 2020-06-16 05:00 | NUR ---
Patient had another BM. turned on the light to notify staff. Nurse answered the light while stepping out of another patient's room and assured him that as soon as patient care was complete with the other patient that his would be next. The agreed that this would be fine. Shortly after he notified another nurse and appeared the be upset. The left to go to the waiting room as the nurses bathed the patient. The could also be heard cursing while in the room. Will continue to assess and monitor the situation.
[2020-06-16 06:18] LABS: HEMATOCRIT 30.8 % (36.0-48.0); HEMOGLOBIN 9.2 g/dL (12-16); LYMPHOCYTE ABS# 1.12 10x3/uL (1.18-3.74); MCH 28.9 pg (26.0-34.0); MCHC 29.9 g/dL (31.0-37.0); MCV 96.9 fL (80.0-100.0); NEUTROPHIL ABS# 9.33 10x3/uL (1.56-6.13); PLATELET COUNT 90 10x3/uL (130-400); RBC 3.18 10x6/uL (4.00-5.40); RDW 19.2 % (11.5-14.5); WBC 11.2 10x3/uL (4.8-10.8)
[2020-06-16 06:25] LABS: ALBUMIN 2.8 g/dL (3.4-5.0); ALKALINE PHOSPHATASE 125 U/L (30-120); BILIRUBIN - TOTAL 4.77 mg/dL (0.2-1.3); CALCIUM 8.1 mg/dL (8.5-10.1); CARBON DIOXIDE 23.7 mmol/L (21.0-32.0); CHLORIDE - SERUM 113 mmol/L (98-107); CREATININE - SERUM 0.6 mg/dL (0.6-1.3); PHOSPHOROUS 3.9 mg/dL (2.5-4.9); POTASSIUM - SERUM 4.3 mmol/L (3.5-5.1); PROTEIN - SERUM 4.9 g/dL (6.4-8.2); SODIUM 148 mmol/L (136-145); eGFR NON AFRICAN AMERICAN > 90 mL/min (90-120)
[2020-06-16 06:47] LABS: LYMPHOCYTES 4 % (15-50); NEUTROPHILS 94 % (40-80)
[2020-06-16 06:48] LABS: ANISOCYTOSIS OCC; PLATELET ESTIMATE DECREASED
[2020-06-16 06:49] LABS: ALT (SGPT) 194 U/L (10-68); CALC OSMOLALITY 305 mosm/kg (275-300); GLUCOSE 91 mg/dL (74-106); TARGET CELLS OCC; UREA NITROGEN 47 mg/dL (7-18)
--- NOTE | 2020-06-16 07:00 | NUR ---
REPORT RECEIVED. ASSESSMENT COMPLETE PER FLOW SHEET. REFER FOR FINDINGS. REPOSOTIONED FOR COMFORT. NEEDS MET
--- NOTE | 2020-06-16 07:41 | NUR ---
DR BARBER AT BEDSIDE GIVNE UPDATE. NO NEW ORDERS
--- NOTE | 2020-06-16 10:13 | NUR ---
Nutrition follow-up: Pt discussed during IDT team rounds. TPN rate to decrease to 40 ml/hr; Lantus decreased; SS insulin decreased Labs reviewed Glucerna 1.5 jose d infusing @ 15 ml/hr; to increase to goal rate of 30 ml/hr by Friday. If pt tolerating TF at goal rate of 30 ml/hr, will decrease TPN rate to 20 ml/hr x 2 hours then discontinue TPN. CVL replaced 06/15/20 RDN will follow-up: 06/17/20
--- NOTE | 2020-06-16 10:18 | NUR ---
FIRST ATTEMPT FOR P/S TRIAL AT 1003. PT PLACED ON 11/21 PT RR INCREASED TO 47-50 RANGE UPON MODE SWITCH. PLACED BACK ON RATE AC/VC. WILL TRY P/S TRIAL AGAIN AROUND 1200.
--- NOTE | 2020-06-16 21:46 | NUR ---
PRN METOPROLOL 2.5MG ADMINISTERED VIA SIVP FOR HR OF 129, WILL MONITOR FOR DESIRED EFFECT.
[2020-06-17] VITALS (25 sets, daily range): BP systolic 106–170; BP diastolic 8–87
[2020-06-17 05:27] LABS: BASOPHILS 0.1 % (0-2); EOSINOPHILS 0 % (0-7); HEMATOCRIT 29.9 % (36.0-48.0); IMMATURE GRANULOCYTES 0.5 % (0-5); LYMPHOCYTE ABS# 1.05 10x3/uL (1.18-3.74); LYMPHOCYTES 8.1 % (15-50); MCH 28.8 pg (26.0-34.0); MCHC 30.1 g/dL (31.0-37.0); MCV 95.8 fL (80.0-100.0); MONOCYTES 6.2 % (2-11); NEUTROPHIL ABS# 10.98 10x3/uL (1.56-6.13); NEUTROPHILS 85.1 % (40-80); RBC 3.12 10x6/uL (4.00-5.40); RDW 19.9 % (11.5-14.5); WBC 12.9 10x3/uL (4.8-10.8)
[2020-06-17 05:40] LABS: PLATELET COUNT 120 10x3/uL (130-400)
[2020-06-17 05:45] LABS: APTT 32.5 SECONDS (22.8-39.4); INR 1.57 (0.85-1.17); PROTIME 17.4 SECONDS (11.6-15.0)
[2020-06-17 05:50] LABS: ALBUMIN 2.3 g/dL (3.4-5.0); ANION GAP 14.9 mmol/L (8-16); BILIRUBIN - TOTAL 3.91 mg/dL (0.2-1.3); CALCIUM 7.7 mg/dL (8.5-10.1); CARBON DIOXIDE 22.1 mmol/L (21.0-32.0); MAGNESIUM - SERUM 2.1 mg/dL (1.8-2.4); PROTEIN - SERUM 4.8 g/dL (6.4-8.2)
[2020-06-17 05:53] LABS: CREATININE - SERUM 0.8 mg/dL (0.6-1.3)
--- NOTE | 2020-06-17 10:55 | NUR ---
Nutrition follow-up/TIF: Received call from pharmacy inquiring if new bag of TPN needed to be made for today. RD called and spoke with patient's RN who states that TF rate had just been increased to goal rate @ 30mL/hr and that patient was tolerating TF well at this time. RN states that TPN rate was decreased and that plan was to let the TPN bag to continue to run out then TPN will be discontinued. RD called pharmacy back and informed them to not make new TPN bag for today. Debby aTriq, MS, RD, LD
--- NOTE | 2020-06-17 18:01 | NUR ---
0700 REPORT RECIEVED AND CARE ASSUMED OF THE PATIENT.. SE FLOW SHEET FOR SHIFT ASSESMENT FINDINGS.. PATIENT IS ORALLY INTUBATED ON VENT NO SEDATION OR RESTRAINS ON AT THIS TIME TUBE FEEDING INFUSING AND RESIDUAL CHECK SHOWS 5 CC... 0920 DR GARCIA IN TO DOROUNDS UPDATE IS GIVEN AND ORDER RECIEVED TO INCREASE TUBE FEED TO GOAL AND DECRESE TPN INFUSION RATE TO 20 CC UNTIL CURRENT BAG THRU INFUSING THEN DC.. IS AT THE BEDSIDE AND DR RAMIREZ UPDATED HIM.. 0945 CONSENT SIGNED BYSTACEY FOR BRONCHOSCOPY TODAY AT BEDSIDE.. 1030 CHG BATH AND LINEN CHANGE DONE DRESSING CHANGE TO ABDOMINAL INCISION .. 1100 BRONCH DON AT BEDSIDE BY DR GARCIA.. DR SPOKE WITH ... 1230 OSTOMY BAG PLACED ON DRAINING MIKY SITE,,, AND DRESSING CHANGED ON ABDOMEN AGAIN.. COLOSTOMY EPTIED.. TPN TO 20 CC RESIDUAL TUBE FEED < 30 1430 REMAINS AT THE BEDSIDE.. 1600 GONE HOME.. 1630 I AND O DONE 1730 INSULIN GIVEN FOR ELEVATED BS
[2020-06-18] VITALS (24 sets, daily range): BP systolic 115–141; BP diastolic 63–83
[2020-06-18 05:44] LABS: BASOPHILS 0.1 % (0-2); EOSINOPHILS 0.1 % (0-7); HEMATOCRIT 28.1 % (36.0-48.0); HEMOGLOBIN 8.7 g/dL (12-16); IMMATURE GRANULOCYTES 0.5 % (0-5); LYMPHOCYTES 7.1 % (15-50); MCH 29.7 pg (26.0-34.0); MCV 95.9 fL (80.0-100.0); MEAN PLATELET VOLUME 12.8 fL (7.4-10.4); MONOCYTES 7.6 % (2-11); NEUTROPHIL ABS# 10.77 10x3/uL (1.56-6.13); NEUTROPHILS 84.6 % (40-80); RBC 2.93 10x6/uL (4.00-5.40); RDW 19.9 % (11.5-14.5); WBC 12.7 10x3/uL (4.8-10.8)
[2020-06-18 05:45] LABS: PLATELET COUNT 149 10x3/uL (130-400)
[2020-06-18 05:57] LABS: ALBUMIN 2.1 g/dL (3.4-5.0); ANION GAP 14.3 mmol/L (8-16); BILIRUBIN - TOTAL 3.12 mg/dL (0.2-1.3); CALCIUM 7.5 mg/dL (8.5-10.1); CARBON DIOXIDE 21.4 mmol/L (21.0-32.0); CREATININE - SERUM 0.8 mg/dL (0.6-1.3); MAGNESIUM - SERUM 2.1 mg/dL (1.8-2.4); PHOSPHOROUS 4.1 mg/dL (2.5-4.9); POTASSIUM - SERUM 3.7 mmol/L (3.5-5.1)
--- NOTE | 2020-06-18 13:57 | NUR ---
0700 BEDSIDE REPORT RECIEVED AND CARE SASUMED OF THE PATIENT.. SEE FLOW SHEET FOR SHIFT ASSESMENT FINDINGS.. 0900 MEDS GIVEN.. 1030 IN TO SEE PATIENT UPDATE IS GIVEN.. 1130 COMPLETE CHG BATH GIVEN.. ALL OSTOMY BAGS CHANGES AND ABDOMINAL INCISION REPACKED WITH GAUZE AND DRESSING APPLIED..CLEAN LINENS TO BED.. 1200 DR GARCIA IN TO SEE PATIENT.. 1400 CPAP TRIAL STARTED BY RT PER DR GARCIA
--- NOTE | 2020-06-18 15:16 | NUR ---
PATIENT ON PS TRIAL (10/ 25%) FROM [id number]. TRIAL STOPPED DUE TO INCREASED RR AND INCREASED HR
--- NOTE | 2020-06-18 17:50 | NUR ---
1600 CPAP TRIAL COMPLETE BACK ON VENT RESP RATE INCREASED TO 34 1630 REPOSITIONED ON LEFT SIDE.. 1700 O2 SAT DROPPED.TO 80. REPOSITIONED ON BACK RR 24 1730 APPEARS TO BE RECOVERED FROM LOW SAT I AND O DONE
--- NOTE | 2020-06-18 23:50 | NUR ---
PT'S CALLED AND UPDATE PROVIDED. PT IN BED WITH EYES OPENED. WHEN ASKED ABOUT PAIN PT NODDED HEAD TO ACKNOLEDGE PAIN. PRN MORPHINE ADMINISTERED
[2020-06-19] VITALS (25 sets, daily range): BP systolic 124–149; BP diastolic 68–82
[2020-06-19 05:50] LABS: BASOPHILS 0.1 % (0-2); EOSINOPHILS 0.2 % (0-7); HEMATOCRIT 28.3 % (36.0-48.0); HEMOGLOBIN 8.5 g/dL (12-16); IMMATURE GRANULOCYTES 0.6 % (0-5); LYMPHOCYTE ABS# 1.11 10x3/uL (1.18-3.74); LYMPHOCYTES 11.1 % (15-50); MCH 29.1 pg (26.0-34.0); MCV 96.9 fL (80.0-100.0); MEAN PLATELET VOLUME 13.1 fL (7.4-10.4); MONOCYTES 3.5 % (2-11); NEUTROPHIL ABS# 8.49 10x3/uL (1.56-6.13); NEUTROPHILS 84.5 % (40-80); RBC 2.92 10x6/uL (4.00-5.40); RDW 20.1 % (11.5-14.5)
[2020-06-19 05:57] LABS: PLATELET COUNT 184 10x3/uL (130-400)
[2020-06-19 06:05] LABS: ALKALINE PHOSPHATASE 150 U/L (30-120); ALT (SGPT) 88 U/L (10-68); BILIRUBIN - TOTAL 2.29 mg/dL (0.2-1.3); CALC OSMOLALITY 300 mosm/kg (275-300); CALCIUM 7.8 mg/dL (8.5-10.1); CHLORIDE - SERUM 113 mmol/L (98-107); CREATININE - SERUM 0.6 mg/dL (0.6-1.3); GLUCOSE 148 mg/dL (74-106); PROTEIN - SERUM 5.2 g/dL (6.4-8.2); SODIUM 145 mmol/L (136-145); UREA NITROGEN 39 mg/dL (7-18); eGFR NON AFRICAN AMERICAN > 90 mL/min (90-120)
[2020-06-19 10:09] LABS: FUNGUS CULTURE RESULT 1 Candida albicans (()); FUNGUS MYCOLOGY CULTURE Preliminary report (())
--- NOTE | 2020-06-19 10:36 | NUR ---
Nutrition follow-up: Pt intubated, sedation off Glucerna 1.5 jose d infusing @ 30 ml/hr Labs reviewed Wt: 143# TF to remain @ 30 ml/hr for 6 days and if tolerating then advance to goal rate of 45 ml/hr per Dr. Becker. RDN follow-up: 06/21/20
--- NOTE | 2020-06-19 14:24 | NUR ---
PATIENT ON PS TRIAL 11/21 25% FROM [id number]. STOPPED DUE TO INCREASED RR (44) INCREASED HR (130) AND INCREASED WOB
--- NOTE | 2020-06-19 19:00 | NUR ---
PT AND REPORT RECIEVED, ETT SECURE IN PLACE, AT BEDSIDE, SEE SHIFT ASSESSMENT FOR ASSESSMENT FINDINGS. CALL LIGHT IN REACH, BED IN LOWEST POSITION, WILL CONTINUE TO MONITOR
[2020-06-20] VITALS (20 sets, daily range): BP systolic 110–153; BP diastolic 52–95
[2020-06-20 05:17] LABS: BASOPHILS 0 % (0-2); EOSINOPHILS 0.2 % (0-7); HEMATOCRIT 26.9 % (36.0-48.0); HEMOGLOBIN 8.1 g/dL (12-16); IMMATURE GRANULOCYTES 0.5 % (0-5); LYMPHOCYTE ABS# 0.66 10x3/uL (1.18-3.74); LYMPHOCYTES 8.2 % (15-50); MCH 29.3 pg (26.0-34.0); MCHC 30.1 g/dL (31.0-37.0); MCV 97.5 fL (80.0-100.0); MEAN PLATELET VOLUME 12.7 fL (7.4-10.4); MONOCYTES 8.3 % (2-11); NEUTROPHIL ABS# 6.64 10x3/uL (1.56-6.13); NEUTROPHILS 82.8 % (40-80); PLATELET COUNT 211 10x3/uL (130-400); RBC 2.76 10x6/uL (4.00-5.40); RDW 20.5 % (11.5-14.5)
--- NOTE | 2020-06-20 05:24 | NUR ---
PT COLOSTOMY BAG LEAKED, BAG CHANGED, ABD INSICION CHANGAED, FECAL MATTER GOT UNDER DRESSING, WOUND CLEANED, CHG BATH GIVEN. PT HAD GREEN MILKY THICK FOUL SMELLING DISCHARE FROM VAGINAL AREA. JENN AUSTIN, NOTIFIED. SHE WANTS DAY SHIFT TO NOTIFY PROVIDER WHEN THEY DO ROUNDS.
[2020-06-20 05:40] LABS: ALBUMIN 1.9 g/dL (3.4-5.0); ALKALINE PHOSPHATASE 221 U/L (30-120); ALT (SGPT) 78 U/L (10-68); BILIRUBIN - TOTAL 1.96 mg/dL (0.2-1.3); CALC OSMOLALITY 302 mosm/kg (275-300); CARBON DIOXIDE 19.4 mmol/L (21.0-32.0); CHLORIDE - SERUM 114 mmol/L (98-107); CREATININE - SERUM 0.7 mg/dL (0.6-1.3); GLUCOSE 148 mg/dL (74-106); POTASSIUM - SERUM 3.8 mmol/L (3.5-5.1); SODIUM 146 mmol/L (136-145); UREA NITROGEN 37 mg/dL (7-18); eGFR NON AFRICAN AMERICAN 86 mL/min (90-120)
--- NOTE | 2020-06-20 07:05 | NUR ---
P/S TRIAL STARTED AT 0705. PT ON 11/21 25% PT IS ALERT BUT TIRED. FIRST ATTEMPT 5 MINS, PT RR IN 40'S AT THIS TIME WILL LET PT REST AND TRY SECOND ATTEMPT AT 0900.
--- NOTE | 2020-06-20 09:17 | NUR ---
2ND ATTEMPT P/S TRIAL STARTED AT [address] DAWSON. PT IS DOING WELL AT THIS TIME RSBI 9O. HR AND RR STABLE.
--- NOTE | 2020-06-20 10:02 | NUR ---
0700 bedside shift report recieved and care assumed of patient.. see flow sheet for shift assesment findings.. 0715 rt at bedside attempt made to cpap trial at this time and patient rresp 35 trial is stopped by rt 0900 dr el in to see patient in rounding.. update given and cpap reinitiated at this time.. 45 daughter at the bedside.. update is given patient is awake and responsive to daughters.. eyes open continue on cpap trial...
--- NOTE | 2020-06-20 12:35 | NUR ---
P/S TRIAL ENDED AT 1225. PT RR INCREASED HIGH 40'S. PT WAS ANXIOUS AND GETTING TIRED. PLACED BACK ON RATE AC/VC. NOTIFIED OF PT'S STATUS.
[2020-06-20 13:12] LABS: ACID FAST SMEAR Negative (()); AFB SPECIMEN PROCESSING Concentration (())
--- NOTE | 2020-06-20 13:32 | NUR ---
1100 REPOSITIONED DRESSING CHANGE TO ABDOMEN DONE. NEW IV TUBING AND BAG OF FLUID HUNG... 1200 RR INCREASED PLACED BACK ON VENT BY RT AT THE BEDSIDE
--- NOTE | 2020-06-20 15:36 | NUR ---
PER ORDER FROM DR. DAWSON PT STARTED BACK ON PS TRIAL AT 1531. PT PLACED ON 11/21 AT THIS TIME. PT RSBI IS 96 HR 109.
--- NOTE | 2020-06-20 16:29 | NUR ---
1400 VAGINAL SWAB OBTAINED WET PREP SENT TO LAB AFTER UPDATING DR LAGOS ON DISCHARGE... 1500 DR DAWSON IN UNIT PT PLACED ON CPAP BY RT 1600 REMAINS ON THE BEDSIDE...
--- NOTE | 2020-06-20 17:14 | NUR ---
P/S TRIAL ENDED AT THIS TIME. PT RR CLIMBING INTO HIGH 40'S AND INCREASED HR. PT PLACED BACK ON RATE AC/VC, WILL RESUME P/S TRIALS IN MORNING PER DR. DAWSON.
[2020-06-21] VITALS (24 sets, daily range): BP systolic 124–150; BP diastolic 66–87
[2020-06-21 06:12] LABS: BASOPHILS 0 % (0-2); EOSINOPHILS 0.3 % (0-7); HEMOGLOBIN 7.8 g/dL (12-16); IMMATURE GRANULOCYTES 0.2 % (0-5); LYMPHOCYTE ABS# 0.62 10x3/uL (1.18-3.74); LYMPHOCYTES 10.6 % (15-50); MCHC 28.9 g/dL (31.0-37.0); MCV 100.4 fL (80.0-100.0); NEUTROPHILS 81.9 % (40-80); PLATELET COUNT 206 10x3/uL (130-400); RBC 2.69 10x6/uL (4.00-5.40); RDW 21.1 % (11.5-14.5); WBC 5.9 10x3/uL (4.8-10.8)
[2020-06-21 06:29] LABS: ALBUMIN 1.8 g/dL (3.4-5.0); ALKALINE PHOSPHATASE 240 U/L (30-120); ALT (SGPT) 85 U/L (10-68); CALC OSMOLALITY 301 mosm/kg (275-300); CARBON DIOXIDE 19.6 mmol/L (21.0-32.0); CHLORIDE - SERUM 115 mmol/L (98-107); CREATININE - SERUM 0.6 mg/dL (0.6-1.3); GLUCOSE 145 mg/dL (74-106); PROTEIN - SERUM 5.3 g/dL (6.4-8.2); SODIUM 146 mmol/L (136-145); UREA NITROGEN 34 mg/dL (7-18); eGFR NON AFRICAN AMERICAN > 90 mL/min (90-120)
--- NOTE | 2020-06-21 09:04 | NUR ---
PS TRIAL 11/21/24% BEGAN AT 0815. SWITCHED TO AC PER DR. DAWSON
--- NOTE | 2020-06-21 09:52 | NUR ---
Nutrition reassessment: Pt intubated. Weaning trials ongoing TPN off Glucerna 1.5 jose d infusing @ 40 ml/hr via OGT Labs reviewed Ht: 5'2" Wt: 137# Estimated nutritional needs: 8217-3865 kcal/kg (25-30 kcal/kg ActBW), 62-74 g protein (1.0-1.2 gm/kg AcBW) 9331-2028 ml fluid Nutrition diagnosis: Inadequate oral intake R/T intubation AEB OG tube feeding needed at this time. Nutrition goals: - Will meet at least 75% of estimated nutritional needs with TF - Will meet est fluid needs - Stable dry wt Interventions: Glucerna 1.5 jose d infusing @ 40 ml/hr with goal rate of 45 ml/hr Glucerna 1.5 jose d @ 40 is providin kcal (77-93% estimated kcal needs) 79 gm protein (107-127% estimated protein needs) RDN will monitor patients renal function closely due to increase protein intake Follow-up: 06/22/20
[2020-06-21 10:21] LABS: FACTOR VIII - APTT 30.8 sec (22.9-30.2); FACTOR VIII - APTT 1:1 NP 25.4 sec (22.9-30.2); FACTOR VIII ACTIVITY 212 % (56-140)
[2020-06-21 18:08] LABS: FUNGUS STAIN Final report (())
[2020-06-22] VITALS (19 sets, daily range): BP systolic 120–146; BP diastolic 65–82
--- NOTE | 2020-06-22 06:27 | NUR ---
WENT TO GIVE BED BATH, NOTICED CENTRAL LINE HAD ABOUT 3IN EXPOSED AND IV FLUID WAS LEAKING, FLUIDS STOPPED AND CVL REMOVED. ABD DRESSING CHANGE COMPLETED WITH WET TO DRY DRESSING. PT TOLERATED WELL
--- NOTE | 2020-06-22 11:54 | NUR ---
Nutrition follow-up: Pt extubated, BIPAP in place Failed swallow evaluation; speech path recommends strict NPO with alterantive means of nutrition support NGT remains in place with Glucerna 1.5 jose d @ 40 ml/hr which is meeting estimated nutritional needs at this time Labs reviewed Wt: 137# Colostomy RDN will follow-up on pts progress toward nutritional goals: 06/26/20
[2020-06-22 15:14] LABS: BASOPHILS 0 % (0-2); EOSINOPHILS 0.5 % (0-7); HEMATOCRIT 28.1 % (36.0-48.0); HEMOGLOBIN 8.2 g/dL (12-16); IMMATURE GRANULOCYTES 0.2 % (0-5); LYMPHOCYTE ABS# 0.45 10x3/uL (1.18-3.74); LYMPHOCYTES 7.6 % (15-50); MCH 29.7 pg (26.0-34.0); MCHC 29.2 g/dL (31.0-37.0); MCV 101.8 fL (80.0-100.0); MONOCYTES 5.5 % (2-11); NEUTROPHIL ABS# 5.14 10x3/uL (1.56-6.13); NEUTROPHILS 86.2 % (40-80); PLATELET COUNT 199 10x3/uL (130-400); RBC 2.76 10x6/uL (4.00-5.40); RDW 21.1 % (11.5-14.5)
[2020-06-22 15:19] LABS: ALBUMIN 1.9 g/dL (3.4-5.0); ALKALINE PHOSPHATASE 256 U/L (30-120); ALT (SGPT) 77 U/L (10-68); BILIRUBIN - TOTAL 1.32 mg/dL (0.2-1.3); CALC OSMOLALITY 297 mosm/kg (275-300); CALCIUM 8.3 mg/dL (8.5-10.1); CARBON DIOXIDE 20.5 mmol/L (21.0-32.0); CHLORIDE - SERUM 115 mmol/L (98-107); CREATININE - SERUM 0.4 mg/dL (0.6-1.3); GLUCOSE 145 mg/dL (74-106); POTASSIUM - SERUM 4.3 mmol/L (3.5-5.1); PROTEIN - SERUM 5.5 g/dL (6.4-8.2); SODIUM 146 mmol/L (136-145); UREA NITROGEN 25 mg/dL (7-18); eGFR NON AFRICAN AMERICAN > 90 mL/min (90-120)
--- NOTE | 2020-06-22 17:05 | NUR ---
OT NOTE: WILL ASSESS TOMORROW. PT WAS EXTUBATED TODAY AND NURSING IN ROOM FOR DRESSING CHANGE WITH EVAL ATTEMPT SAMANTHA THORNTON, OTR/L
--- NOTE | 2020-06-22 18:00 | NUR ---
pt repositioned for comfort, bipap in place, will monitor
--- NOTE | 2020-06-22 19:00 | NUR ---
RECEIVED BEDSIDE REPORT. ROUNDING COMPLETE. PATIENT RESTING COMFORTABLY IN BED. PATIENT REMAINS ON BIPAP. NO S/S OF DISTRESS. NO C/O PAIN. NEEDS MET. CALL LIGHT WITHIN REACH. WILL CPOC.
[2020-06-23] VITALS (13 sets, daily range): BP systolic 121–147; BP diastolic 62–90
[2020-06-23 05:36] LABS: BASOPHILS 0 % (0-2); HEMATOCRIT 27.9 % (36.0-48.0); IMMATURE GRANULOCYTES 0.2 % (0-5); LYMPHOCYTE ABS# 0.54 10x3/uL (1.18-3.74); MCH 29.2 pg (26.0-34.0); MCHC 28.7 g/dL (31.0-37.0); MCV 101.8 fL (80.0-100.0); MEAN PLATELET VOLUME 11.5 fL (7.4-10.4); MONOCYTES 7.7 % (2-11); NEUTROPHIL ABS# 4.94 10x3/uL (1.56-6.13); NEUTROPHILS 82.1 % (40-80); PLATELET COUNT 213 10x3/uL (130-400); RBC 2.74 10x6/uL (4.00-5.40); RDW 21.2 % (11.5-14.5)
[2020-06-23 06:12] LABS: ALBUMIN 1.9 g/dL (3.4-5.0); ALKALINE PHOSPHATASE 236 U/L (30-120); ALT (SGPT) 72 U/L (10-68); BILIRUBIN - TOTAL 1.04 mg/dL (0.2-1.3); CALC OSMOLALITY 293 mosm/kg (275-300); CALCIUM 8.2 mg/dL (8.5-10.1); CARBON DIOXIDE 20.4 mmol/L (21.0-32.0); CHLORIDE - SERUM 113 mmol/L (98-107); CREATININE - SERUM 0.5 mg/dL (0.6-1.3); GLUCOSE 121 mg/dL (74-106); POTASSIUM - SERUM 4.7 mmol/L (3.5-5.1); PROTEIN - SERUM 5.4 g/dL (6.4-8.2); SODIUM 144 mmol/L (136-145); UREA NITROGEN 28 mg/dL (7-18); eGFR NON AFRICAN AMERICAN > 90 mL/min (90-120)
--- NOTE | 2020-06-23 07:20 | NUR ---
PT RESTING COMFORTABLE, FOLLOWS SIMPLE COMMMANDS, BIPAP TAKEN OFF AND PT PLACED ON 4LNC, O2SAT 98%, TOLERATING WELL, WILL MONITOR
--- NOTE | 2020-06-23 09:00 | NUR ---
THERAPY IN WORKING WITH PATIENT
--- NOTE | 2020-06-23 15:40 | NUR ---
PT REPOSITIONED FOR COMFORT, AT BEDSIDE, WILL MONITOR
--- NOTE | 2020-06-23 16:30 | NUR ---
REPORT CALLED TO LORENA RODRIGUEZ ON MED SURG
--- NOTE | 2020-06-23 16:55 | NUR ---
PT TRANSFERRED TO 2204 VIA STRECTHER, BELONGINGS SENT WITH PATIENT, AT BEDSIDE, CALL LIGHT IN REACH
--- NOTE | 2020-06-23 17:00 | NUR ---
PT ARRIVED TO FLOOR VIA BED FROM ICU, AT BEDSIDE, RECEIVED REPORT FROM ICE NURSE, PT ON TELE, IV AND NG RUNNING, SCD'S ON, ASSESSMENT COMPLETE, PT HAS OPENING AT MEDIAL POINT OF ABD INCISION THAT IS PACKED WITH GAUZE AND COVERED WITH 4X4 AND TAPE, DRAINING WOUND FROM DISTAL POINT OF INCISION THAT HAS OSTOMY BAG PLACED TO CATCH DRAINAGE, SMALL PIN POINT WOUND ON RIGHT CLAVICAL, PT IS PRETTY SWOLLEN IN ARMS AND LEGS WITH NO PITTING OR WEEPING, PT IS AOX4, ROLLED TO RIGHT SIDE AT THIS TIME
[2020-06-24] VITALS (12 sets, daily range): BP systolic 124–147; BP diastolic 62–76
--- NOTE | 2020-06-24 05:20 | NUR ---
ASSESSED AT THE BEGINNING OF THE SHIFT. PT WAS AWAKE WITH HER IN THE ROOM. SHE COMPLAINED FOR ABD PAIN AND RECEIVED PAIN MEDS ORDERED. SHE WAS MADE COMFORTABLE AND ASSISTED WITH TURNING. HER LEFT AT ABOUT 2200 WHILE SHE WAS ASLEEP. SHE HAS RESTED WELL DURING THE NIGHT WITH HER BIPAP IN PLACE. HER BLOOD SUGAR DID NOT NEED ANY COVERAGE AND SHE HAS GLUCERNA 1.5 INFUSING WITH THE HOB UP AT 35% AT 40 CC'C AN HOUR. DRESSING TO HER ABD ARE CLEAN DRY AND INTACT. SHE ALSO HAS A COLOSTOMY AND ROGERS.
[2020-06-24 05:53] LABS: BASOPHILS 0 % (0-2); EOSINOPHILS 1.1 % (0-7); HEMATOCRIT 27.1 % (36.0-48.0); HEMOGLOBIN 7.7 g/dL (12-16); IMMATURE GRANULOCYTES 0.2 % (0-5); LYMPHOCYTE ABS# 0.64 10x3/uL (1.18-3.74); LYMPHOCYTES 14.2 % (15-50); MCH 29.3 pg (26.0-34.0); MCHC 28.4 g/dL (31.0-37.0); MEAN PLATELET VOLUME 10.8 fL (7.4-10.4); MONOCYTES 9.8 % (2-11); NEUTROPHIL ABS# 3.37 10x3/uL (1.56-6.13); NEUTROPHILS 74.7 % (40-80); PLATELET COUNT 182 10x3/uL (130-400); RBC 2.63 10x6/uL (4.00-5.40); WBC 4.5 10x3/uL (4.8-10.8)
[2020-06-24 06:24] LABS: ALBUMIN 1.8 g/dL (3.4-5.0); ALKALINE PHOSPHATASE 209 U/L (30-120); ALT (SGPT) 62 U/L (10-68); BILIRUBIN - TOTAL 0.89 mg/dL (0.2-1.3); CALC OSMOLALITY 289 mosm/kg (275-300); CALCIUM 8.4 mg/dL (8.5-10.1); CARBON DIOXIDE 22.6 mmol/L (21.0-32.0); CHLORIDE - SERUM 110 mmol/L (98-107); CREATININE - SERUM 0.4 mg/dL (0.6-1.3); GLUCOSE 159 mg/dL (74-106); POTASSIUM - SERUM 4.9 mmol/L (3.5-5.1); PROTEIN - SERUM 5.3 g/dL (6.4-8.2); SODIUM 142 mmol/L (136-145); UREA NITROGEN 25 mg/dL (7-18); eGFR NON AFRICAN AMERICAN > 90 mL/min (90-120)
--- NOTE | 2020-06-24 09:06 | NUR ---
REHAB PRESCREEN RECEIVED. AFTER REVIEWING THE CHART, PATIENT JUST STARTED WITH PHYSICAL THERAPY AND OCCUPATIONAL THERAPY YESTERDAY, WHICH LOOKS TO BE DAY 2 POST EXTUBATION OF AROUND 15 DAYS. SHE IS CURRENTLY VERY DEBILITATED AND NOT ABLE TO DO MUCH WITH THERAPY. i WOULD LIKE TO CONTINUE TO FOLLOW HER FOR A COUPLE OF DAYS TO SEE IF SHE APPEARS SHE WILL BE ABLE TO TOLERATE THE 3 HOURS OF THERAPY, AND IN THIS TIME HAVE THE OPPORTUNITY TO SPEAK WITH HER SPOUSE TO SEE IF WE CAN ESTABLISH HER PRIOR LEVEL OF FUNCTION. SHE LOOKS LIKE SHE WILL BE A GOOD CANDIDATE IF HER TOLERANCE TO THERAPIES IMPROVES. WE WILL CONTINUE TO FOLLOW. THANK YOU FOR THIS REFERRAL. VIJAYA SALCEDO RN CLINICAL LIAISON, INPATIENT REHAB
--- NOTE | 2020-06-24 09:15 | NUR ---
I HAVE DISCUSSED REHAB'S PLAN TO FOLLOW THE PATIENT AND THE RATIONAL BEHIND IT TO RAMY, CASE MANAGEMENT.
--- NOTE | 2020-06-24 09:41 | NUR ---
RESTING IN BED, NO DISTRESS NOTED, COLOSTOMY WITH SOFT STOOL, BIPAP IN PLACE, SUGAR 116, TURN PER STAFF, FEEDING PER L NARE, CONT TO MONITOR
--- NOTE | 2020-06-24 13:00 | NUR ---
CALLED FROM TELE UNIT THAT PT WAS IN SVT, JAIME ON THE UNIT AND ORDERS REC., EKG DONE AND DIGOXIN GIVEN IV PUSH, TAKEN TO ICU ROOM 7, REPORT GIVEN TO ALLAN RN, FAMILY AT BEDSIDE AND AWARE OF CONDITION CHANGES
[2020-06-24 14:33] LABS: CREATINE KINASE 31 UL (21-215)
[2020-06-24 14:36] LABS: TROPONIN-I 0.076 ng/mL (0.000-0.060)
--- NOTE | 2020-06-24 14:39 | NUR ---
1330 PT RECIEVED IN THE ICU VIA BED FROM THE FLOOR... PLACED ON ICU MONITORING EQUIPMENT.. BIPAP O2 ON... PATIENT IS AWAKE AND IS RESPONSIVE TO VERBAL QUESTIONS AND COMMANDS.. COLOSTOMY BAG RIGHT ABDOMEN WITH FORMED PATEL COLORED STOOL IN BAG.. CLEAR YELLOW SEROUS DRAINAGE IN COLLECTION BAG DISTAL TO ABDOMINAL INCISION... 1415 AMIODERONE BOLUS HUNG AND DRIP INITIATED PER ORDER... IS AT THE BEDSIDE.. PATIENT IS WITH ST ON MONITOR AT THIS TIME ....
--- NOTE | 2020-06-24 16:29 | NUR ---
1615 I AND O DONE PATIENT IS WITH FORMED STOOL IN COLOSTOMY BAG.. THERE IS SOILED PADS UNDER PATIENT.. ODIFEROUS AND DISCOLORED.. PARTIAL CHG BATH GIVEN AND PAD CHANGES DONE... PATIENT REMAINS AWAKE AND ALERT FOLLOWS COMMANDS... REMAINS ON CORDORONE DRIP HR IS SR 94
--- NOTE | 2020-06-24 17:23 | NUR ---
1700 CONTINUES AT BEDSIDE.. PATIENT STATES PAIN MORPHINE GIVEN PER MAR.. 1720 SOME PAIN RELIEF NOTED PER PATIENT
[2020-06-24 18:39] LABS: CREATINE KINASE 34 UL (21-215)
[2020-06-24 18:43] LABS: TROPONIN-I 0.172 ng/mL (0.000-0.060)
--- NOTE | 2020-06-24 19:18 | NUR ---
RECEIVED BEDSIDE REPORT. ROUNDING COMPLETE. PATIENT IS ALERT AND ORIENTED X 2, RESTING COMFORTABLY. RESPIRATIONS ARE EVENAND UNLABORED. NO S/S OF DISTRESS. NO C/O PAIN. NO NEEDS AT THIS TIME. CALL LIGHT WITHIN REACH. WILL CPOC.
--- NOTE | 2020-06-24 21:00 | NUR ---
WHEN ASSESSING PATIENT NOTICED THAT TUBE FEEDS COMING OUT OF MOUTH AND PATIENT WAS SWALLOWING. WHEN CHECKING TUBE PLACEMENT WATER BEGAN COMING OUT OF PATIENT MOUTH. PATIENT BEGAN COUGHING. TUBE FEEDS STOPPED. NEW NGT PLACED. KUB OBTAINED. NGT PLACEMENT CORRECT PER KUB REPORT. TUBE FEEDS RESTARTED.
--- NOTE | 2020-06-24 22:00 | NUR ---
PATIENT REFUSING TO WEAR BIPAP. PATIENT MOVING HEAD FROM SIDE TO SIDE AND YELLING "NO". PATIENT USING HIGH FLOW NC AT 7L O2 SAT 100%.
[2020-06-25] VITALS (24 sets, daily range): BP systolic 114–150; BP diastolic 56–73
[2020-06-25 02:08] LABS: CKMB 3.4 U/L (0.0-3.6); CREATINE KINASE 34 UL (21-215)
[2020-06-25 02:09] LABS: TROPONIN-I 0.114 ng/mL (0.000-0.060)
--- NOTE | 2020-06-25 03:43 | NUR ---
WHEN ROUNDING ON PATIENT THIS NURSE NOTICED SECRETIONS AROUND PATIENTS MOUTH. PATIENT WOULD ALLOW THIS NURSE TO REMOVE THEM FROM FACE, NECK AND CHEEK. SHE REFUSED TO OPEN HER MOUTH TO ALLOW ME TO REMOVE THE SECRETIONS FROM INSIDE MOUTH OR ALLOW ME TO DO ORAL CARE.
[2020-06-25 04:25] LABS: BASOPHILS 0 % (0-2); EOSINOPHILS 1.3 % (0-7); IMMATURE GRANULOCYTES 0.3 % (0-5); LYMPHOCYTE ABS# 0.75 10x3/uL (1.18-3.74); LYMPHOCYTES 19.2 % (15-50); MCH 29.5 pg (26.0-34.0); MCHC 29.6 g/dL (31.0-37.0); MEAN PLATELET VOLUME 10.3 fL (7.4-10.4); NEUTROPHILS 69.2 % (40-80); PLATELET COUNT 165 10x3/uL (130-400); RBC 2.41 10x6/uL (4.00-5.40); RDW 20.1 % (11.5-14.5); WBC 3.9 10x3/uL (4.8-10.8)
[2020-06-25 04:27] LABS: HEMOGLOBIN 7.1 g/dL (12-16); MCV 99.6 fL (80.0-100.0)
[2020-06-25 04:40] LABS: ALBUMIN 1.6 g/dL (3.4-5.0); ALKALINE PHOSPHATASE 214 U/L (30-120); ALT (SGPT) 56 U/L (10-68); BILIRUBIN - TOTAL 0.66 mg/dL (0.2-1.3); CALC OSMOLALITY 280 mosm/kg (275-300); CALCIUM 8.3 mg/dL (8.5-10.1); CARBON DIOXIDE 24.3 mmol/L (21.0-32.0); CHLORIDE - SERUM 107 mmol/L (98-107); CREATININE - SERUM 0.4 mg/dL (0.6-1.3); GLUCOSE 129 mg/dL (74-106); POTASSIUM - SERUM 4.5 mmol/L (3.5-5.1); PROTEIN - SERUM 4.9 g/dL (6.4-8.2); SODIUM 138 mmol/L (136-145); UREA NITROGEN 20 mg/dL (7-18); eGFR NON AFRICAN AMERICAN > 90 mL/min (90-120)
--- NOTE | 2020-06-25 04:40 | NUR ---
PATIENT CVL DRESSING CHANGED.
--- NOTE | 2020-06-25 05:49 | NUR ---
CALLED CRITICAL HEMOGLOBIN OF 7.1. TO GEOVANNA ALMAGUER APN. ORDERS GIVEN TO TYPE AND SCREEN.
--- NOTE | 2020-06-25 15:52 | NUR ---
0700 BEDISDE REPORT RECIEVED AND CARE ASSUMED OF THE PATIENT.. SEE SHIFT ASSESMENT FINDINGS .. PATIENT IS AWAKE AND FOLLOWS COMMANDS AT THIS TIME.. SHE IS REFUSING TO WEAR THE BIPAP MASK THAT RT WANTS TO PLACE ON HER O2 INCREASED TO 7 L BY RT AT THIS TIME.. 0915 DR DAWSON IN TO SEE PATIENT.. 1000 DR Nicole PINO IN O SEE PATIENT.. ORDER FOR PO CORDORNE RECIEVED AND TO TURN OFF IV CORDORONE ONCE PO GIVEN.. 1030 AT THE BEDSIDE UPDATE IS GIVEN 1045 FIRST UNIT OF PRBC STARTED PER ORDER FOR LOW H AND H 1345 FIRST UNIT PRBC COMPLETE LASIX AND BENADRYLL GIVEN PER ORDER 1425 2ND UNIT PRBC STARTED.. REMAINS AT THE BEDSIDE..
[2020-06-26] VITALS (24 sets, daily range): BP systolic 117–162; BP diastolic 65–90
[2020-06-26 04:51] LABS: BASOPHILS 0 % (0-2); EOSINOPHILS 0.8 % (0-7); IMMATURE GRANULOCYTES 0.2 % (0-5); LYMPHOCYTE ABS# 0.65 10x3/uL (1.18-3.74); LYMPHOCYTES 13.5 % (15-50); MCH 28.9 pg (26.0-34.0); MCHC 31.4 g/dL (31.0-37.0); MEAN PLATELET VOLUME 10.3 fL (7.4-10.4); MONOCYTES 11.2 % (2-11); NEUTROPHIL ABS# 3.59 10x3/uL (1.56-6.13); NEUTROPHILS 74.3 % (40-80); PLATELET COUNT 134 10x3/uL (130-400); RDW 20.1 % (11.5-14.5); WBC 4.8 10x3/uL (4.8-10.8)
[2020-06-26 04:55] LABS: HEMATOCRIT 35.3 % (36.0-48.0); HEMOGLOBIN 11.1 g/dL (12-16); MCV 91.9 fL (80.0-100.0); RBC 3.84 10x6/uL (4.00-5.40)
[2020-06-26 05:16] LABS: ALBUMIN 1.8 g/dL (3.4-5.0); ALKALINE PHOSPHATASE 223 U/L (30-120); ALT (SGPT) 55 U/L (10-68); BILIRUBIN - TOTAL 1.09 mg/dL (0.2-1.3); CALC OSMOLALITY 272 mosm/kg (275-300); CALCIUM 8.3 mg/dL (8.5-10.1); CARBON DIOXIDE 24.9 mmol/L (21.0-32.0); CHLORIDE - SERUM 102 mmol/L (98-107); CREATININE - SERUM 0.5 mg/dL (0.6-1.3); GLUCOSE 126 mg/dL (74-106); POTASSIUM - SERUM 4.4 mmol/L (3.5-5.1); PROTEIN - SERUM 5.5 g/dL (6.4-8.2); SODIUM 135 mmol/L (136-145); UREA NITROGEN 15 mg/dL (7-18); eGFR NON AFRICAN AMERICAN > 90 mL/min (90-120)
--- NOTE | 2020-06-26 06:02 | NUR ---
AM LABS REVIEWED, NOTHING TO TREAT PER ELECTROLYTE PROTOCOL.
--- NOTE | 2020-06-26 07:00 | NUR ---
REPORT RECEIVED. ASSESSMENT COMPLETE PER FLOW SHEET/. REFER FOR FINDINGS. VSS. PT SLEEPING COMFORTABLY. REPOSITIONED FOR COMFORT. NEEDS MET.
--- NOTE | 2020-06-26 09:03 | NUR ---
Nutrition follow-up: Pt sleeping; BIPAP in place NPO continues Glucerna 1.5 jose d infusing @ 30 ml/hr -> goal rate 40 ml/hr TF has been off and now being advanced slowly to goal rate Labs reviewed Wt: 145# Colostomy working. Recommend continue advancing TF to goal rate of 40 ml/jr. RDN reassessment: 06/28/20
[2020-06-26 12:10] LABS: FUNGUS CULTURE RESULT 1 Candida albicans (()); FUNGUS MYCOLOGY CULTURE Preliminary report (())
--- NOTE | 2020-06-26 12:35 | NUR ---
PT FOR A PEG TUBE PLACEMENT TODAY. REHAB IS STILL FOLLOWING AT THIS TIME. ONCE SHE IS RECEIVING THERAPIES AGAIN, WE WILL SEE IF THERE IS ANY INDICATION THAT SHE WILL BE ABLE TO MAKE IMPROVEMENTS. VIJAYA SALCEDO RN CLINICAL LIAISON, INPATIENT REHAB.
--- NOTE | 2020-06-26 15:53 | NUR ---
OT NOTE: PT COMPLETED BED POSITIONING WITH MAX A X2. PT COMPLETED TOTAL BODY HYGIENE TASKS WITH TOTAL A. PT COMPLETED ORAL CARE WITH TOTAL A. PT REQUIRED EXTENDED TIME. 5-250 THANK YOU,PERICO WILKINS
--- NOTE | 2020-06-26 20:30 | NUR ---
Medications administered to G-tube, flushes easily. Tubefeeding resumed at ordered rate of 30 ml/hr.
--- NOTE | 2020-06-26 23:00 | NUR ---
Patient placed on BiPAP as ordered, tolerating well. Will continue to monitor.
[2020-06-27] VITALS (18 sets, daily range): BP systolic 112–143; BP diastolic 66–98; Ht 157.5 cm; Wt 67.7 kg
[2020-06-27 05:26] LABS: BASOPHILS 0 % (0-2); EOSINOPHILS 0.6 % (0-7); HEMATOCRIT 37.3 % (36.0-48.0); HEMOGLOBIN 11.7 g/dL (12-16); IMMATURE GRANULOCYTES 0.4 % (0-5); LYMPHOCYTE ABS# 0.55 10x3/uL (1.18-3.74); LYMPHOCYTES 10.7 % (15-50); MCH 29.3 pg (26.0-34.0); MCHC 31.4 g/dL (31.0-37.0); MCV 93.5 fL (80.0-100.0); MEAN PLATELET VOLUME 10.7 fL (7.4-10.4); MONOCYTES 14.2 % (2-11); NEUTROPHIL ABS# 3.81 10x3/uL (1.56-6.13); NEUTROPHILS 74.1 % (40-80); PLATELET COUNT 141 10x3/uL (130-400); RBC 3.99 10x6/uL (4.00-5.40); RDW 19.9 % (11.5-14.5); WBC 5.1 10x3/uL (4.8-10.8)
[2020-06-27 05:47] LABS: ALBUMIN 1.7 g/dL (3.4-5.0); ALKALINE PHOSPHATASE 262 U/L (30-120); ALT (SGPT) 57 U/L (10-68); CALC OSMOLALITY 269 mosm/kg (275-300); CALCIUM 8.9 mg/dL (8.5-10.1); CARBON DIOXIDE 25.7 mmol/L (21.0-32.0); CHLORIDE - SERUM 103 mmol/L (98-107); GLUCOSE 109 mg/dL (74-106); POTASSIUM - SERUM 4.2 mmol/L (3.5-5.1); PROTEIN - SERUM 5.4 g/dL (6.4-8.2); SODIUM 134 mmol/L (136-145); UREA NITROGEN 14 mg/dL (7-18)
[2020-06-27 05:53] LABS: CREATININE - SERUM 0.3 mg/dL (0.6-1.3); eGFR NON AFRICAN AMERICAN > 90 mL/min (90-120)
--- NOTE | 2020-06-27 06:09 | NUR ---
Shift summary: Patient tolerated BiPAP well. Dressing to lower mid abdomen changed as ordered. CHG bath given. Pain controlled with PRN Morphine. Denies any needs.
--- NOTE | 2020-06-27 08:31 | NUR ---
LYING IN BED RESTING WITH EYES CLOSED. PT OPENS EYES AND RESPONDS WHEN SPOKEN TO. SHE IS ABLE TO STATE HER NAME AND THE YEAR, BUT COULD NOT RECALL LOCATION OR SITUATION. REORIENTATION PROVIDED. VSS. DURING MORNING ASSESSMENT NOTED HER RT ARM IS RED, TENDER, AND WARM TO TOUCH (CLOSER TO WRIST). US RT ARM ORDERS RECIEVED. WILL CONTINUE PLAN OF CARE.
--- NOTE | 2020-06-27 09:24 | NUR ---
DR GARCIA ROUNDED ON PT, ORDERS RECEIVED.
--- NOTE | 2020-06-27 10:14 | NUR ---
PER US THERE IS A CLOT TO HER RT RADIAL VEIN AT THE WRIST. DR GARCIA HAD RESTARTED LOVENOX 30MG TODDAY AND ASKED ME TO TALK WITH SURGERY TO SEE IF DR HAJI WISHES FOR THIS DOSE TO BE INCRASED. PER DR HAJI, KEEP DOSAGE AT THE 30MG, DO NOT INCREASE. PTS AT BEDSIDE. UPDATES PROVIDED. VSS. WILL CONTINUE PLAN OF CARE.
--- NOTE | 2020-06-27 12:06 | NUR ---
REHAB PRESCREENING Rehab referral received and chart reviewed. This patient is Max-Total Assist with PT and OT. She can not be reasonably expected to actively participate in the required 3 hours of therapy per day at this time. Rehab will continue to follow this patient for improvement with therapy or recommend SNF placement. Thank you for this referral! Rere Hopkins, [employer] Rehab PD
--- NOTE | 2020-06-27 12:54 | NUR ---
REPOSITIONING PROVIDED TO PT. ATTEMPTED TO PROVIDE ORAL CARE AND PT REFUSED THE ORAL CARE. SHE DENIES ANY CURRENT NEEDS. AT BEDSIDE. VSS. WILL CONTINUE PLAN OF CARE.
--- NOTE | 2020-06-27 15:34 | NUR ---
OT NOTE: PT COMPLETED POSITIONING WITH TOTAL A. PT COMPLETED LUE AAROM TOLERATED. PT COMPLETED FACE HYGIENE WITH MAX A. [phone] THANK YOU,PERICO WILKINS
--- NOTE | 2020-06-27 16:58 | NUR ---
CHG BATH PROVIDED AT THIS TIME ALONG WITH LORENZO CARE. ALSO COLOSTOMY BAG CHANGED AND UROSTOMY BAG WHICH COVERS THE DRAINING ASCITES FROM PREVIOUS MIKY DRAIN SITE CHANGED AT THIS TIME. PT DENIES ANY NEEDS. VSS. WILL CONTINUE PLAN OF CARE.
--- NOTE | 2020-06-27 17:01 | NUR ---
NOTED PT HAS TRANSFER ORDERS TO GO TO ROOM 2201. WILL CALL REPORT TO RECIEVING NURSE NOW.
--- NOTE | 2020-06-27 17:11 | NUR ---
REPORT CALLED TO RECIEVING NURSE, WILL TRANSFER PT SHORTLY.
--- NOTE | 2020-06-27 17:59 | NUR ---
PT TRANSFERRED TO ROOM 2201 AT THIS TIME WITH ALL PERSONAL ITEMS VIA BED ACCOMPANIED BY HOSPITAL STAFF AND . NO ACUTE DISTRESS NOTED. NO FURTHER ACTIONS.
--- NOTE | 2020-06-27 22:43 | NUR ---
PT RESTING IN BED. PT'S IS AT BEDSIDE. PT DID COMPLAIN OF SOME PAIN AND PAIN MEDICATION WAS GIVEN. NO OTHER COMPLAINTS AT THIS TIME. ABLE TO MAKE WATNS AND NEEDS KNOWN TO STAFF. BED IN LOWEST POSITION WITH CALL LIGHT IN REACH.
[2020-06-28] VITALS: BP 130/61
[2020-06-28 04:00] VITALS: BP 138/69
[2020-06-28 06:36] LABS: BASOPHILS 0 % (0-2); EOSINOPHILS 0.2 % (0-7); HEMATOCRIT 35.6 % (36.0-48.0); HEMOGLOBIN 11.1 g/dL (12-16); IMMATURE GRANULOCYTES 0.6 % (0-5); LYMPHOCYTE ABS# 0.52 10x3/uL (1.18-3.74); LYMPHOCYTES 11.2 % (15-50); MCHC 31.2 g/dL (31.0-37.0); MEAN PLATELET VOLUME 10.7 fL (7.4-10.4); MONOCYTES 15.3 % (2-11); NEUTROPHIL ABS# 3.36 10x3/uL (1.56-6.13); NEUTROPHILS 72.7 % (40-80); RBC 3.83 10x6/uL (4.00-5.40); RDW 19.5 % (11.5-14.5); WBC 4.6 10x3/uL (4.8-10.8)
[2020-06-28 06:40] LABS: PLATELET COUNT 181 10x3/uL (130-400)
[2020-06-28 06:50] LABS: ALBUMIN 1.7 g/dL (3.4-5.0); ALKALINE PHOSPHATASE 229 U/L (30-120); ALT (SGPT) 53 U/L (10-68); BILIRUBIN - TOTAL 0.74 mg/dL (0.2-1.3); CALC OSMOLALITY 270 mosm/kg (275-300); CALCIUM 8.4 mg/dL (8.5-10.1); CARBON DIOXIDE 25.6 mmol/L (21.0-32.0); CHLORIDE - SERUM 102 mmol/L (98-107); CREATININE - SERUM 0.4 mg/dL (0.6-1.3); GLUCOSE 134 mg/dL (74-106); MAGNESIUM - SERUM 1.4 mg/dL (1.8-2.4); PHOSPHOROUS 3.5 mg/dL (2.5-4.9); POTASSIUM - SERUM 4.6 mmol/L (3.5-5.1); PROTEIN - SERUM 5.1 g/dL (6.4-8.2); SODIUM 134 mmol/L (136-145); UREA NITROGEN 16 mg/dL (7-18); eGFR NON AFRICAN AMERICAN > 90 mL/min (90-120)
--- NOTE | 2020-06-28 07:15 | NUR ---
REC'D IN WITH EYES CLOSED EASILY TO AROUSED WHEN NAME IS CALLED. RESP EVEN AND UNLABORED WITH NO DISTRESS NOTED OR VOICED. NO C/O NOTED OR VOICED. ASSESSMENT COMPLETED. C/L IN REACH AT BEDSIDE.
[2020-06-28 10:11] VITALS: BP 141/68
--- NOTE | 2020-06-28 11:21 | NUR ---
IN BED SLEEPING, IV INFUSING PER MAR. BED LOW POSITION, CALL LIGHT IN NAYELY. WILL CONTINUE TO MONITOR.
--- NOTE | 2020-06-28 13:20 | NUR ---
Nutrition follow-up: Pt now out of ICU Glucerna 1.5 jose d infusing @ goal rate of 40 ml/hr with 50 ml H2O flsu q 4 hours. Labs reviewed Wt: 149# Colostomy working with stool output. RDN will follow-up: 06/30/20
--- NOTE | 2020-06-28 14:26 | NUR ---
OT NOTE: PT COMPLETED FACE HYGIENE WITH TOTAL A. PT COMPLETED ORAL CARE WITH TOOTHETTE REQUIRED TOTAL A. PT COMPLETED POSITIONING IN BED TO DECREASE PRESSURE POINT WITH TOTAL A. PT STATED HER BODY ACHES ALL OVER..NURSING AWARE. [phone] THANK YOU,PERICO WILKINS
[2020-06-28 14:48] VITALS: BP 143/70
[2020-06-28 17:11] VITALS: BP 127/70
[2020-06-28 20:00] VITALS: BP 142/72
--- NOTE | 2020-06-28 20:35 | NUR ---
PT IS RESTING AT BEDSIDE. NO COMPLAINTS AT THIS TIME. TUBE FEEDING CURRENTLY RUNNING. ROOM AIR. BED IN LOW POSITION. CALL LIGHT IN REACH.
[2020-06-29] VITALS (7 sets, daily range): BP systolic 144–164; BP diastolic 70–86
[2020-06-29 06:14] LABS: BASOPHILS 0 % (0-2); EOSINOPHILS 0.4 % (0-7); HEMATOCRIT 35.7 % (36.0-48.0); IMMATURE GRANULOCYTES 0.7 % (0-5); LYMPHOCYTE ABS# 0.68 10x3/uL (1.18-3.74); LYMPHOCYTES 15.1 % (15-50); MCH 29.3 pg (26.0-34.0); MCHC 30.8 g/dL (31.0-37.0); MCV 94.9 fL (80.0-100.0); MEAN PLATELET VOLUME 10.8 fL (7.4-10.4); MONOCYTES 12.6 % (2-11); NEUTROPHIL ABS# 3.21 10x3/uL (1.56-6.13); NEUTROPHILS 71.2 % (40-80); RBC 3.76 10x6/uL (4.00-5.40); RDW 19.5 % (11.5-14.5); WBC 4.5 10x3/uL (4.8-10.8)
[2020-06-29 06:23] LABS: PLATELET COUNT 225 10x3/uL (130-400)
[2020-06-29 06:26] LABS: ALBUMIN 1.6 g/dL (3.4-5.0); ALKALINE PHOSPHATASE 222 U/L (30-120); ALT (SGPT) 46 U/L (10-68); BILIRUBIN - TOTAL 0.57 mg/dL (0.2-1.3); CALC OSMOLALITY 272 mosm/kg (275-300); CALCIUM 8.3 mg/dL (8.5-10.1); CARBON DIOXIDE 25.5 mmol/L (21.0-32.0); CHLORIDE - SERUM 103 mmol/L (98-107); CREATININE - SERUM 0.4 mg/dL (0.6-1.3); GLUCOSE 137 mg/dL (74-106); POTASSIUM - SERUM 4.7 mmol/L (3.5-5.1); PROTEIN - SERUM 4.9 g/dL (6.4-8.2); SODIUM 135 mmol/L (136-145); UREA NITROGEN 15 mg/dL (7-18); eGFR NON AFRICAN AMERICAN > 90 mL/min (90-120)
--- NOTE | 2020-06-29 11:49 | NUR ---
Nutrition reassessment: Pt continues NPO s/p PEG tube placement Glucerna 1.5 jose d infusing @ goal rate of 50 ml/hr with pt tolerating. Ht: 5'2" Current Wt: 149# Labs reviewed; Glucose under good control Colostomy working Estimated nutritional needs based on actual BW: 1440-2136 kcal (25-30 kcal/kg), 70-91 gm protein (1.0-1.3 gm/kg) 170-2303 ml fluid/day or per MD. Nutrition diagnosis: Inadequate oral intake R/T pt with weak swallow per speech pathologist AEB pt continues with PEG tube feeding a this time. Nutrition goals: - TF tolerance of Glucerna 1.5 jose d @ goal rate of 40 ml/hr - Meet est fluid needs - Stable wt Nutrition Intervention: PEG tube feeding of Glucerna 1.5 jose d @ 40 ml/hr is providin kcal (71-93% estimated kcal needs) 79 gm protein (87-113% estimated protein needs) Pt with +fluid balance Recommend: Please weigh pt at least 3 times per week. RDN will follow-up on progress toward nutrition goals: 07/03/20
--- NOTE | 2020-06-29 12:31 | NUR ---
ALL SANTANA REMOVED AND MASTIOL AND STERI STRIPS APPLIED. DRESSING APPLIED TO ABD WITH DRY 4X4S AND TAPE. TOLERATED WELL WITHOUT PROBLEMS. TURNED TO BACK FOR COMFORT. CALL LIGHT IN REACH
--- NOTE | 2020-06-29 13:16 | NUR ---
OT NOTE: PT COMPLETED TOTAL BODY POSITIONING WITH TOTAL A. PT DID EXHIBIT INCREASED RUE MOVEMENT. PT REQUIRED TOTAL A FOR UB HYGIENE TASKS. [phone] JESSE SANTAMARIA COTA
--- NOTE | 2020-06-29 16:07 | NUR ---
OT NOTE: PT ALERT.. REPORTING PAIN ALL OVER.. PT MORE VERBAL TODAY. ASKING ABOUT HER . PRACTICED BED MOB, UE/LE A/A/PROM..ALSO CERVICAL EXS TO STRENGTHEN NECK MUSCLES.. POSITIONED ON HER SIDE WITH NUMEROUS PILLOWS FOR COMFORT. REQURIED ASSIST X 2 FOR TMT TODAY SAMANTHA THORNTON, OTR/L [phone]
--- NOTE | 2020-06-29 17:57 | NUR ---
PT HAS BEEN MEDICATED X 2 FOR PAIN EITHER IN ARM OR ABDOMEN. COLOSTOMY BAG EMPTIED OF SOFT BROWN STOOL-TURNED EVERY 2 HOURS USING A WEDGE-HOB REMAINS AT LEAST 45 DEGREES DUE TO TUBE FEEDING. EDEMA TO RIGHT HAND AND ARM HAD DECREASED. SPOUSE REMAINS AT BEDSIDE. CALL LIGHT IN REACH
--- NOTE | 2020-06-29 22:59 | NUR ---
PT RESTING IN
--- NOTE | 2020-06-29 22:59 | NUR ---
PT RESTING IN BED. PT HAS COMPLAINED OF PAIN IN ABDOMEN. PAIN MEDICATION WAS ADMINISTERED AND EFFECTIVE. ROOM AREA. ABLE TO MAKE WANTS AND NEEDS KNOWN TO STAFF. BED IN LOWEST POSITION WITH CALL LIGHT IN REACH.
[2020-06-30] VITALS: BP 173/95
[2020-06-30 04:00] VITALS: BP 171/80
[2020-06-30 07:07] LABS: BASOPHILS 0 % (0-2); EOSINOPHILS 0.6 % (0-7); HEMATOCRIT 32.6 % (36.0-48.0); HEMOGLOBIN 9.9 g/dL (12-16); IMMATURE GRANULOCYTES 0.6 % (0-5); LYMPHOCYTE ABS# 0.76 10x3/uL (1.18-3.74); LYMPHOCYTES 16.3 % (15-50); MCH 28.5 pg (26.0-34.0); MCHC 30.4 g/dL (31.0-37.0); MCV 93.9 fL (80.0-100.0); MEAN PLATELET VOLUME 10.4 fL (7.4-10.4); MONOCYTES 12.4 % (2-11); NEUTROPHIL ABS# 3.26 10x3/uL (1.56-6.13); NEUTROPHILS 70.1 % (40-80); PLATELET COUNT 226 10x3/uL (130-400); RBC 3.47 10x6/uL (4.00-5.40); RDW 18.6 % (11.5-14.5); WBC 4.7 10x3/uL (4.8-10.8)
[2020-06-30 07:20] LABS: ALBUMIN 1.7 g/dL (3.4-5.0); ALKALINE PHOSPHATASE 224 U/L (30-120); ALT (SGPT) 49 U/L (10-68); BILIRUBIN - TOTAL 0.55 mg/dL (0.2-1.3); CALC OSMOLALITY 273 mosm/kg (275-300); CALCIUM 8.6 mg/dL (8.5-10.1); CARBON DIOXIDE 28.1 mmol/L (21.0-32.0); CHLORIDE - SERUM 102 mmol/L (98-107); CREATININE - SERUM 0.3 mg/dL (0.6-1.3); GLUCOSE 115 mg/dL (74-106); POTASSIUM - SERUM 4.8 mmol/L (3.5-5.1); SODIUM 136 mmol/L (136-145); UREA NITROGEN 16 mg/dL (7-18); eGFR NON AFRICAN AMERICAN > 90 mL/min (90-120)
--- NOTE | 2020-06-30 07:30 | NUR ---
REC'D IN BED AWAKE AND ALERT TO NAME ONLY WITH NOTED CONFUSION. RESP EVEN AND UNLABORED WITH NO DISTRESS NOTED. CAN EXPRESS NEEDS AND WANTS. ASSESSMENT COMPLETED. C/L IN REACH AT BEDSIDE.
[2020-06-30 08:52] VITALS: BP 159/84
--- NOTE | 2020-06-30 08:55 | NUR ---
WAS MEDICATED WITH MORPINE AT THIS TIME FOR C/O ABD. PER ORDERS. C/L IN REACH AT BEDSIDE.
--- NOTE | 2020-06-30 08:55 | NUR ---
WAS MEDICATED WITH MORPHINE AT THIS TIME FOR C/O ABD. PAIN RATING 8/10 ON PAIN SCALE. C/L IN REACH AT BEDSIDE.
--- NOTE | 2020-06-30 11:15 | MORECARE ---
CASE MANAGEMENT DISCHARGE SUMMARY PATIENT: AWA ANTONIO UNIT: [id number] ADM DATE: 06/03/20 AGE: 75 : 45 SEX: F ROOM/BED: D220 AUTHOR: AISHA RODRIGUEZ PHYSICIAN: REFERRING PHYSICIAN: VIANNEY SANDERS MD DATE OF SERVICE: 06/30/20 Case Management Discharge Planning Summary DCP REVIEW SUMMARY ANTICIPATED D/C DATE: EXPECTED LOS : CASE STATUS: DCP Initiated INITIAL REVIEW: 06/03/2020 INITIAL REVIEWER: Kimi Varela FINAL DISCHARGE DISPOSITION: : FINAL REVIEWER: FINAL REVIEW DATE: DCP Focus Questions & Answers QUESTION: ANSWER : PATIENT: AWA ANTONIO ENCOUNTER: [id number] MEDICAL RECORD#: [id number] ADMISSION DATE: 06/03/2020 DISCHARGE DATE: ATTENDING MD: VIANNEY ALBA : AGE: 75 MARITAL STATUS: M DC PLAN ID: [id number] FACILITY: [facility] PRINTED ON: 06/30/20 11:15 CT All edits/amendments must be made on the electronic document DICTATION DATE: 06/30/201114 PSYCHOLOGY TEACHER: DM 06/30/201114 RPT#: [id number] DC DATE: STATUS: ADM IN [facility] [address] [place] [address] END OF REPORT
--- NOTE | 2020-06-30 11:15 | NUR ---
I have reviewed this patient and I concur with the Shift Assessment completed by the Licensed Practical Nurse today this shift.
--- NOTE | 2020-06-30 11:16 | NUR ---
I have reviewed this patient and I concur with the Shift Assessment completed by the Licensed Practical Nurse today this shift.
--- NOTE | 2020-06-30 11:28 | MORECARE ---
CASE MANAGEMENT DISCHARGE SUMMARY PATIENT: AWA ANTONIO UNIT: [id number] ADM DATE: 06/03/20 AGE: 75 : 45 SEX: F ROOM/BED: D.220 AUTHOR: JENNIFER,DOC PHYSICIAN: REFERRING PHYSICIAN: VIANNEY SANDERS MD DATE OF SERVICE: 06/30/20 Case Management Discharge Planning Summary COMMENTS ENTERED DATE: 06/30/20 11:13 CT COMMENT TYPE: Discharge Planning REVIEWER: Kimi Varela PER OUR INPATIENT REHAB, SHE IS NOT QUALIFIED AT THIS TIME TO COME TO THEM . I SPOKE WITH THE HAMMER REPAIRER ABOUT LTACH AND SHE THOUGHT THAT WOULD BE A GOOD OPTION. I SENT THE REFERRAL TO SEE IF SHE WOULD QUALIFY FOR THEIR SERVICES CM TO FOLLOW AND ASSIST DCP REVIEW SUMMARY ANTICIPATED D/C DATE: EXPECTED LOS : CASE STATUS: DCP Initiated INITIAL REVIEW: 06/03/2020 INITIAL REVIEWER: Kimi Varela FINAL DISCHARGE DISPOSITION: : FINAL REVIEWER: FINAL REVIEW DATE: DCP Focus Questions & Answers QUESTION: ANSWER : PATIENT: AWA ANTONIO ENCOUNTER: [id number] MEDICAL RECORD#: [id number] ADMISSION DATE: 06/03/2020 DISCHARGE DATE: ATTENDING MD: VIANNEY ALBA : AGE: 75 MARITAL STATUS: M DC PLAN ID: [id number] FACILITY: [facility] PRINTED ON: 06/30/20 11:28 CT All edits/amendments must be made on the electronic document DICTATION DATE: 06/30/201127 TAIL BOARD MAN: EILEEN 06/30/201127 RPT#: [id number] DC DATE: STATUS: ADM IN [facility] [address] [place] [address] END OF REPORT
--- NOTE | 2020-06-30 12:05 | NUR ---
OT NOTE: PERFORMED EXT THERAPY TODAY.. WITH ASSIST OF 2-3, WE WERE ABLE TO GET PT UP TO EOB.. REQUIRED MIN ASSIST AND MAX VERBAL CUES FOR CERVIC EXTENSION WHILE IN SITTING.. PTS ENTIRE BODY IS VERY WEAK.. REQUIRED MAX ASSIST X 2 FOR UPRIGHT SITTING.. PT TOLERATED FOR APPROX 5 MIN..BUT THIS WAS GOOD SHE HAS NOT BEEN UP TO EOB SINCE ADMIT. PT WITH CONT C/O ABD PAIN, HOWEVER, SHE HAD JUST BEEN MEDICATED PRIOR TO TMTM. PT IMPROVING WITH STRENGTH IN B UES.. REMAINS APPROX 2-/5, BUT ABLE TO TOLERATED 5 REPS PER EACH EX WITH MIN ASSIST. EDEMA MUCH IMPROVED IN L HAND.. CONT IN R HAND BUT BETTER.. ADMINISTRATIVE SERVICES SPECIALIST STRENGTH AND FINGER FLEX/EXT MUCH BETTER TODAY.. VOICE LEVEL IMPROVED.. MORE CONVERSIVE EACH DAY. PRACTICED ROLLING FROM SIDE TO SIDE WITH MAX ASSIST.. POSITIONED ON R SIDE SO THAT SHE COULD SEE HER AND ALLOW PRESSURE OFF OF BUTTOCKS. SAMANTHA THORNTON, OTR/L [phone]
[2020-06-30 12:29] VITALS: BP 151/76
--- NOTE | 2020-06-30 13:51 | NUR ---
WAS MEDICATED WITH MOPRHINE AND ZOFRAN AT THIS TIME. HUBSAND AND C/L IN REAC AT BEDSIDE.
--- NOTE | 2020-06-30 13:52 | MORECARE ---
CASE MANAGEMENT DISCHARGE SUMMARY PATIENT: AWA ANTONIO UNIT: [id number] ADM DATE: 06/03/20 AGE: 75 : 45 SEX: F ROOM/BED: D.2201 AUTHOR: JENNIFER,DOC PHYSICIAN: REFERRING PHYSICIAN: VIANNEY SANDERS MD DATE OF SERVICE: 06/30/20 Case Management Discharge Planning Summary COMMENTS ENTERED DATE: 06/30/20 13:48 CT COMMENT TYPE: Discharge Planning REVIEWER: Kimi Vraela I spoke with the patient's about a discharge plan. He stated that he would like [facility] as his first choice. [facility] signed and I will send clinicals to them. She is a patient of Dr Gardner in [place]. There are 5 steps in their home. She did not use any DME prior to coming to the hospital. She was independent with her care. She did have the 2nd COVID vaccine on 05/08/20 ( Moderna). CM will continue to follow and assist as needed ENTERED DATE: 06/30/20 11:13 CT COMMENT TYPE: Discharge Planning REVIEWER: Kimi Varela PER OUR INPATIENT REHAB, SHE IS NOT QUALIFIED AT THIS TIME TO COME TO THEM . I SPOKE WITH THE DEPUTY BAILIFF ABOUT LTACH AND SHE THOUGHT THAT WOULD BE A GOOD OPTION. I SENT THE REFERRAL TO SEE IF SHE WOULD QUALIFY FOR THEIR SERVICES CM TO FOLLOW AND ASSIST DCP REVIEW SUMMARY ANTICIPATED D/C DATE: EXPECTED LOS : CASE STATUS: DCP Initiated INITIAL REVIEW: 06/03/2020 INITIAL REVIEWER: Kimi Varela FINAL DISCHARGE DISPOSITION: : FINAL REVIEWER: FINAL REVIEW DATE: DCP Focus Questions & Answers QUESTION: ANSWER : PATIENT: AWA ANTONIO ENCOUNTER: [id number] MEDICAL RECORD#: [id number] ADMISSION DATE: 06/03/2020 DISCHARGE DATE: ATTENDING MD: VIANNEY ALBA : AGE: 75 MARITAL STATUS: M DC PLAN ID: [id number] FACILITY: [facility] PRINTED ON: 06/30/20 13:52 CT All edits/amendments must be made on the electronic document DICTATION DATE: 06/30/201351 POCKET BUILDER: EILEEN 06/30/20 135 RPT#: [id number] DC DATE: STATUS: ADM IN [facility] [address] [place] [address] END OF REPORT
[2020-06-30 17:12] VITALS: BP 144/70
[2020-06-30 20:00] VITALS: BP 155/92
--- NOTE | 2020-07-01 03:30 | NUR ---
PT C/O ABDOMINAL PAIN 10/10 AND NAUSEA. GAVE MORPHINE 2 MG AND ZOFRAN 4 MG IV PUSH. EMPTIED OSTOMY COVERING DRAIN SITE. CHANGED BAG ON COLOSTOMY. CHANGED 4X4 DRESSING AT ABD INCISION SITE AND COVERED W/TEGADERM PER ORDER. CHANGED FEEDING BAGS. EMPTIED ROGERS. TURNED PT AND MADE COMFORTABLE. NO OTHER NEEDS. WILL CONTINUE TO MONITOR.
[2020-07-01 05:48] VITALS: BP 155/92
[2020-07-01 05:54] VITALS: BP 144/81
[2020-07-01 06:47] LABS: BASOPHILS 0 % (0-2); EOSINOPHILS 0.4 % (0-7); HEMATOCRIT 33.7 % (36.0-48.0); HEMOGLOBIN 10.3 g/dL (12-16); IMMATURE GRANULOCYTES 0.5 % (0-5); LYMPHOCYTE ABS# 0.88 10x3/uL (1.18-3.74); LYMPHOCYTES 11.4 % (15-50); MCH 28.9 pg (26.0-34.0); MCHC 30.6 g/dL (31.0-37.0); MCV 94.4 fL (80.0-100.0); MEAN PLATELET VOLUME 10.7 fL (7.4-10.4); NEUTROPHIL ABS# 6.01 10x3/uL (1.56-6.13); NEUTROPHILS 77.7 % (40-80); RBC 3.57 10x6/uL (4.00-5.40); RDW 18.4 % (11.5-14.5)
[2020-07-01 06:59] LABS: PLATELET COUNT 277 10x3/uL (130-400); WBC 7.7 10x3/uL (4.8-10.8)
--- NOTE | 2020-07-01 07:20 | NUR ---
REC'D IN BED AWAKE AND ALERT TO SELF ONLY. RESP EVEN AND UNLABORED WITH NO DISTRESS NOTED. TURN AND REPOSITIONED Q 2 HRS FOR COMFORT AND TO PREVENT ANY SKIN ISSUES. ASSESSMENT COMPLETED. C/L IN REACH AT BEDSIDE.
[2020-07-01 07:53] LABS: ALBUMIN 1.6 g/dL (3.4-5.0); ALKALINE PHOSPHATASE 249 U/L (30-120); ALT (SGPT) 46 U/L (10-68); BILIRUBIN - TOTAL 0.43 mg/dL (0.2-1.3); CALC OSMOLALITY 269 mosm/kg (275-300); CALCIUM 8.7 mg/dL (8.5-10.1); CARBON DIOXIDE 28.3 mmol/L (21.0-32.0); CHLORIDE - SERUM 101 mmol/L (98-107); GLUCOSE 107 mg/dL (74-106); POTASSIUM - SERUM 4.8 mmol/L (3.5-5.1); PROTEIN - SERUM 5.2 g/dL (6.4-8.2); SODIUM 134 mmol/L (136-145); UREA NITROGEN 19 mg/dL (7-18)
[2020-07-01 08:02] LABS: CREATININE - SERUM 0.4 mg/dL (0.6-1.3); eGFR NON AFRICAN AMERICAN > 90 mL/min (90-120)
[2020-07-01 08:27] VITALS: BP 127/73
--- NOTE | 2020-07-01 11:48 | NUR ---
WAS MEDICATED AT THIS TIME FOR C/O PAIN RATING 8/10 ON PAIN SCALE WITH MOPRHINE PER ORDERS. C/L IN REACH AT BEDSIDE.
[2020-07-01 12:43] VITALS: BP 138/68
--- NOTE | 2020-07-01 15:15 | NUR ---
PATIENT COMPLAINING OF PAIN. STATES IT HURTS IN HER CHEST. TELEMETRY ON. SR AND RATE IS 96. VS STABLE. 132/78. HR 98. WHILE VS WERE TAKEN PATIENT WENT BACK TO SLEEP. WILL CONTINUE TO MONITOR. CALL LIGHT WITHIN REACH. FAMILY AT BEDSIDE.
--- NOTE | 2020-07-01 16:18 | NUR ---
WAS MEDICATED AT THIS TIME FOR C/O PAIN RATING 8/10 ON PAIN SCALE WITH MOPRHINE PER ORDERS. C/L IN REACH AT BEDSIDE.
--- NOTE | 2020-07-01 17:21 | NUR ---
I have reviewed this patient and I concur with the Shift Assessment completed by the Licensed Practical Nurse today this shift.
--- NOTE | 2020-07-01 17:22 | NUR ---
I have reviewed this patient and I concur with the Shift Assessment completed by the Licensed Practical Nurse today this shift.
[2020-07-01 17:23] VITALS: BP 138/72
[2020-07-01 20:00] VITALS: BP 41/86
--- NOTE | 2020-07-02 03:00 | NUR ---
PT'S COLOSTOMY BAG HALF FULL OF STOOL. CHANGED BAG AND CLEANED AROUND STOMA. EMPTIED OSTOMY DRAIN - MINIMAL SEROUS DRAINAGE. CHANGED 4X4 ON ABDOMINAL INCISION. PURULENT DRAINAGE AROUND BOTTOM STERI STRIP. CHANGED TUBE FEEDING BAGS. RESIDUAL LESS THAN 3 MLS. BILAT ARMS EDEMATOUS - ELEVATED ON PILLOWS. ROGERS CATHETER EMPTIED. REPOSITIONED PT AND TURNED. ORAL CARE AND LEMON SWABS PROVIDED. PT NEEDS ANOTHER SWALLOW EVAL. WILL PASS IN REPORT IN MORNING.
[2020-07-02 06:22] LABS: BASOPHILS 0 % (0-2); EOSINOPHILS 0.6 % (0-7); HEMATOCRIT 32.8 % (36.0-48.0); IMMATURE GRANULOCYTES 0.9 % (0-5); LYMPHOCYTE ABS# 1.12 10x3/uL (1.18-3.74); LYMPHOCYTES 14.2 % (15-50); MCHC 30.5 g/dL (31.0-37.0); MCV 95.1 fL (80.0-100.0); MEAN PLATELET VOLUME 10.7 fL (7.4-10.4); MONOCYTES 9.6 % (2-11); NEUTROPHIL ABS# 5.88 10x3/uL (1.56-6.13); NEUTROPHILS 74.7 % (40-80); PLATELET COUNT 289 10x3/uL (130-400); RBC 3.45 10x6/uL (4.00-5.40); RDW 18.4 % (11.5-14.5); WBC 7.9 10x3/uL (4.8-10.8)
[2020-07-02 06:39] LABS: ALBUMIN 1.7 g/dL (3.4-5.0); ALKALINE PHOSPHATASE 204 U/L (30-120); ALT (SGPT) 41 U/L (10-68); BILIRUBIN - TOTAL 0.43 mg/dL (0.2-1.3); CALC OSMOLALITY 270 mosm/kg (275-300); CALCIUM 8.5 mg/dL (8.5-10.1); CARBON DIOXIDE 27.9 mmol/L (21.0-32.0); CHLORIDE - SERUM 100 mmol/L (98-107); CREATININE - SERUM 0.4 mg/dL (0.6-1.3); GLUCOSE 108 mg/dL (74-106); POTASSIUM - SERUM 4.8 mmol/L (3.5-5.1); PROTEIN - SERUM 5.3 g/dL (6.4-8.2); SODIUM 134 mmol/L (136-145); UREA NITROGEN 19 mg/dL (7-18); eGFR NON AFRICAN AMERICAN > 90 mL/min (90-120)
[2020-07-02 07:00] VITALS: BP 122/80
--- NOTE | 2020-07-02 08:00 | NUR ---
PATIENT IN BED WITH IV INTACT. NO COMPLAINTS OR SIGNS OF DISTRESS. COLOSTOMY AND ROGERS INTACT. LAYING ON SIDE WITH HEELS FLOATING. HEEL PROTECTORS ON. BSCDS ON AND WORKING. CALL LIGHT WITHIN REACH.
[2020-07-02 15:07] VITALS: BP 137/67
--- NOTE | 2020-07-02 18:42 | NUR ---
PATIENT IN BED WITH IV INTACT. STATES SHE WANTS HER MORPHINE. EXPLAINED SHE CANT HAVE IT UNTIL 1999. OFFERED TYLENOL. PATIENT SAID NO. WANTS TO DRINK WATER. EXPLAINED SHE HAS TO HAVE ANOTHER SWALLOW EVAL. OFFERED SWABS FOR MOUTH. REFUSED. DRESSING TO ABDOMEN CHANGED. WOUND BED PINK WITH ONLY SMALL AMOUNT OF DRAINAGE. ABOVE THAT UNDER STERI STRIPS, SMALL AMOUNT OF PURELENT DRAINAGE NOTED. UROSTOMY DRAIN OVER MIKY SITE CDI. COLOSTOMY INTACT. FAMIL AT BEDSIDE. CALL LIGHT WITHIN REACH.
[2020-07-02 20:42] VITALS: BP 130/67
--- NOTE | 2020-07-03 05:15 | NUR ---
BLOOD DRAWN FROM CVL AND SENT TO LAB. MORPHINE AND ZOFRAN GIVEN IV PUSH FOR PAIN 8/10 AND NAUSEA. COLOSTOMY HALF FULL OF SEMI-SOLID STOOL - CHANGED OUT BAG. DRAIN SITE WITH OSTOMY BAG LEAKING - REMOVED BAG AND DRESSED DRAIN SITE WITH FOLDED 4X4 AND TEGADERM. MIDLINE INCISION WOUND ALSO DRESSED WITH 4X4 AND TEGADERM. COMPLETE GOWN AND BED CHANGE DONE. GROIN AND PERIAREA RED WHERE DRAINAGE HAD LEAKED OUT OF BAG. CLEANED PT AND DRIED THOROUGHLY. NO OTHER NEEDS. WILL CONTINUE TO MONITOR.
[2020-07-03 06:00] LABS: BASOPHILS 0 % (0-2); EOSINOPHILS 0.6 % (0-7); HEMATOCRIT 31.9 % (36.0-48.0); HEMOGLOBIN 9.7 g/dL (12-16); LYMPHOCYTE ABS# 1.06 10x3/uL (1.18-3.74); LYMPHOCYTES 13.3 % (15-50); MCH 28.5 pg (26.0-34.0); MCHC 30.4 g/dL (31.0-37.0); MCV 93.8 fL (80.0-100.0); MEAN PLATELET VOLUME 10.4 fL (7.4-10.4); NEUTROPHIL ABS# 5.93 10x3/uL (1.56-6.13); NEUTROPHILS 74.1 % (40-80); PLATELET COUNT 321 10x3/uL (130-400); RDW 18.5 % (11.5-14.5)
[2020-07-03 06:19] LABS: ALBUMIN 1.7 g/dL (3.4-5.0); ALKALINE PHOSPHATASE 168 U/L (30-120); ALT (SGPT) 35 U/L (10-68); BILIRUBIN - TOTAL 0.38 mg/dL (0.2-1.3); CALC OSMOLALITY 273 mosm/kg (275-300); CALCIUM 8.7 mg/dL (8.5-10.1); CARBON DIOXIDE 28.2 mmol/L (21.0-32.0); CHLORIDE - SERUM 100 mmol/L (98-107); CREATININE - SERUM 0.4 mg/dL (0.6-1.3); GLUCOSE 124 mg/dL (74-106); POTASSIUM - SERUM 4.4 mmol/L (3.5-5.1); PROTEIN - SERUM 5.3 g/dL (6.4-8.2); SODIUM 135 mmol/L (136-145); UREA NITROGEN 22 mg/dL (7-18); eGFR NON AFRICAN AMERICAN > 90 mL/min (90-120)
--- NOTE | 2020-07-03 07:50 | NUR ---
DR. HAJI ROUNDS AND ORDERS BEDSIDE SWALLOW EVAL BY NURSE.
--- NOTE | 2020-07-03 09:18 | NUR ---
REFUSES SWALLOW STUDY BY ME, BUT CLEARS WATER WITHOUT DIFFICULTY.
[2020-07-03 10:18] VITALS: BP 128/77
--- NOTE | 2020-07-03 12:26 | NUR ---
DRSG CHANGED TO MIDLINE ABD INCISION. POCKET RED WITHOUT DRAINAGE, HOWEVER, ABOVE THIS POCKET THERE IS SCANT PURULENT DRAINAGE. OLD DRAIN SITE BELOW WITH GRANULATION TISSUE, NO DRAINAGE NOTED. 4X4S PLACED IN POCKET AND ON OLD DRAIN SITE, SITE WITH PURULENCE. SECURED WITH 2 TEGADERMS.
--- NOTE | 2020-07-03 13:19 | NUR ---
Nutrition follow-up: Pt refusing swallow evaluation for oral diet to begin Glucerna 1.5 jose d infusing @ 40 ml/hr; pt tolerating at this time. Labs reviewed; glucose with fair to good control; Na low Wt: 149# Ostomy with stool output Pt currently meeting estimated nutritional needs. RDN follow-up: 07/07/20
[2020-07-03 14:00] VITALS: BP 135/61
--- NOTE | 2020-07-03 14:04 | MORECARE ---
CASE MANAGEMENT DISCHARGE SUMMARY PATIENT: AWA ANTONIO UNIT: [id number] ADM DATE: 06/03/20 AGE: 75 : 45 SEX: F ROOM/BED: D.2201 AUTHOR: JENNIFER,DOC PHYSICIAN: REFERRING PHYSICIAN: VIANNEY SANDERS MD DATE OF SERVICE: 07/03/20 Case Management Discharge Planning Summary COMMENTS ENTERED DATE: 07/03/20 13:57 CT COMMENT TYPE: Discharge Planning REVIEWER: Kimi Jacobo called this morning and stated that they did not have any bed availability. I will speak to her and see what he would like to do now. ENTERED DATE: 06/30/20 13:48 CT COMMENT TYPE: Discharge Planning REVIEWER: Kimi Varela I spoke with the patient's about a discharge plan. He stated that he would like [facility] as his first choice. GRECIA signed and I will send clinicals to them. She is a patient of Dr Gardner in [place]. There are 5 steps in their home. She did not use any DME prior to coming to the hospital. She was independent with her care. She did have the 2nd COVID vaccine on 05/08/20 ( Moderna). CM will continue to follow and assist as needed ENTERED DATE: 06/30/20 11:13 CT COMMENT TYPE: Discharge Planning REVIEWER: Kimi Varela PER OUR INPATIENT REHAB, SHE IS NOT QUALIFIED AT THIS TIME TO COME TO THEM . I SPOKE WITH THE CHAINSTITCH BINDER ABOUT LTACH AND SHE THOUGHT THAT WOULD BE A GOOD OPTION. I SENT THE REFERRAL TO SEE IF SHE WOULD QUALIFY FOR THEIR SERVICES CM TO FOLLOW AND ASSIST DCP REVIEW SUMMARY ANTICIPATED D/C DATE: EXPECTED LOS : CASE STATUS: DCP Initiated INITIAL REVIEW: 06/03/2020 INITIAL REVIEWER: Kimi Varela FINAL DISCHARGE DISPOSITION: : FINAL REVIEWER: FINAL REVIEW DATE: DCP Focus Questions & Answers QUESTION: ANSWER : PATIENT: AWA ANTONIO ENCOUNTER: [id number] MEDICAL RECORD#: [id number] ADMISSION DATE: 06/03/2020 DISCHARGE DATE: ATTENDING MD: VIANNEY ALBA : AGE: 75 MARITAL STATUS: M DC PLAN ID: [id number] FACILITY: [facility] PRINTED ON: 07/03/20 14:04 CT All edits/amendments must be made on the electronic document DICTATION DATE: 07/03/201403 EMBEDDED ENGINEER: EILEEN 07/03/201403 RPT#: [id number] DC DATE: STATUS: ADM IN [facility] [address] [place] [address] END OF REPORT
--- NOTE | 2020-07-03 16:53 | NUR ---
OT NOTE: PT COMPLETED POSITIONING WITH TOTAL A. PT COMPLETED SUPINE TO SIT WITH MAX A. PT COMPLETED UB HYGIENE TASKS WITH MAX A. [phone] THANK YOU,PERICO WILKINS
--- NOTE | 2020-07-03 17:14 | NUR ---
OT NOTE: PT MUCH MORE ALERT TODAY. LESS C/O ABD PAIN. BED MOB WITH MAX ASSIST; EOB SITTING WITH MAX ASSIST X 2.. NEURO TMT TODAY REQUIRING THERAPIST BEHIND PT FOR TRUNK SUPPORT AND THERAPIST IN FRONT FOR WT BEARING OF UE/LES.. PT WITH SEVERE TRUNK AND CERVICAL WEAKNESS. MAX ASSIST TO MAINTAIN UPRIGHT POSITION OF HEAD.. HEAD FALLS INTO FULLY FLEXED POSITION WITHOUT ASSIST. PT ABLE TO HOLD HEAD UP FOR APPROX 2 SECONDS THEN FALLS TO FLEXION. PT SHOWING IMPROVEMENT IN USE OF L HAND.. PT WAS ABLE TO BRING HAND TO MOUTH SEVERAL TIMES WITHOUT ASSISTANCE. PERFORMED UE A/AROM EXS.. SHOWING IMPROVEMENT ALSO IN R UE MOVEMENT. REMAINS EDEMATOUS BUT INCREASED ACTIVE MOVEMENT NOTED. EXTENSIVE POSITONING PERFORMED, HOWEVER, DUE TO CERVICAL WEAKNESS, IT WAS DIFFICULT TO LEAVE PT ON HER SIDE AND MAINTAIN GOOD POSITIONING. SAMANTHA THORNTON, OTR/L [phone]
[2020-07-03 17:54] VITALS: BP 125/69
[2020-07-03 20:00] VITALS: BP 116/62
--- NOTE | 2020-07-03 20:00 | NUR ---
RESTING IN BED EYES CLOSED, AROUSES EASILY, SEE SHIFT ASSESSMENT, CALL LIGHT IN REACH
[2020-07-04] VITALS: BP 116/67
[2020-07-04 04:00] VITALS: BP 124/69
[2020-07-04 06:14] LABS: BASOPHILS 0.2 % (0-2); EOSINOPHILS 0.8 % (0-7); HEMATOCRIT 28.3 % (36.0-48.0); HEMOGLOBIN 9.3 g/dL (12-16); LYMPHOCYTES 14.3 % (15-50); MEAN PLATELET VOLUME 8.4 fL (7.4-10.4); MONOCYTES 10.1 % (2-11); NEUTROPHILS 74.6 % (40-80); PLATELET COUNT 319 10x3/uL (130-400); RBC 3.11 10x6/uL (4.00-5.40); RDW 18.3 % (11.5-14.5)
[2020-07-04 06:23] LABS: MCV 91.1 fL (80.0-100.0)
[2020-07-04 06:48] LABS: ALBUMIN 1.7 g/dL (3.4-5.0); ALKALINE PHOSPHATASE 148 U/L (30-120); ALT (SGPT) 35 U/L (10-68); BILIRUBIN - TOTAL 0.36 mg/dL (0.2-1.3); CALC OSMOLALITY 276 mosm/kg (275-300); CALCIUM 8.8 mg/dL (8.5-10.1); CARBON DIOXIDE 28.6 mmol/L (21.0-32.0); CHLORIDE - SERUM 102 mmol/L (98-107); CREATININE - SERUM 0.5 mg/dL (0.6-1.3); GLUCOSE 140 mg/dL (74-106); POTASSIUM - SERUM 4.4 mmol/L (3.5-5.1); PROTEIN - SERUM 5.1 g/dL (6.4-8.2); SODIUM 136 mmol/L (136-145); UREA NITROGEN 20 mg/dL (7-18); eGFR NON AFRICAN AMERICAN > 90 mL/min (90-120)
[2020-07-04 10:02] VITALS: BP 120/64
[2020-07-04 14:48] VITALS: BP 124/67
--- NOTE | 2020-07-04 15:35 | NUR ---
OT NOTE: PT DOING VERY WELL TODAY.. UPON ENTERING, PTS HAD PT ATTEMPTING TO USE THE IPAD.. VERY GOOD FOR UE STRENGTH AND FUNCTIONAL USE OF HANDS. ASSISTED PT TO EOB..PERFORMED NEURO RE ED TODAY. MAX ASSIST FOR TRUNK STABILIZATION; RETRIEVED SMALL CERVICAL COLLAR PT HAS SUCH POOR CERVICAL EXTENSION STRENGTH, THAT SHE IS UNABLE TO HOLD HEAD IN NEUTRAL WITHOUT MOD ASSIST. PRACTICED CERV EXT AND RETRACTION EXS WHILE SITTING ON EOB.. PT TOLERATED APPROX 10 MIN OF SITTING TODAY. WT BEARING THROUGH B UES AND LES.. REQUIRED ASSIST X 3 THERAPIST TO BE ABLE TO FOCUS ON ALL REQUIRED NEEDS FOR THERAPY. PT WAS MUCH MORE ALERT AND MORE VERBAL TODAY. MINIMAL C/O PAIN; PRACTICED BED MOB INCLUDING ROLLING SIDE TO SIDE AND HAVING PT REACH TOWARDS BED RAIL TO ASSIST IN MAINTAINING SIDELIEING. POSITIONED ON SIDE FOR COMFORT FACING HER . PT GAINING STRENGTH DAILY. SAMANTHA THORNTON, OTR/L [phone]
--- NOTE | 2020-07-04 16:16 | NUR ---
OT NOTE: PT COMPLETED SUPINE TO SIT WITH TOTAL A. PT COMPLETED STATIC SITTING AT EOB WITH TOTAL A. PT COMPLETED HAIR GROOMING WITH TOTAL A. PT COMPLETED SIT TO SUPINE WITH TOTAL A. PT REQUIRED TOTAL A FOR BED POSITIONING TO DECREASE RISK OF SKIN BREAKDOWN. [id number] JESSE SANTAMARIA COTA
[2020-07-04 17:21] VITALS: BP 127/68
--- NOTE | 2020-07-04 19:15 | NUR ---
WALKING ROUNDS MADE THROUGH PT ROOM.
[2020-07-04 20:00] VITALS: BP 129/67
--- NOTE | 2020-07-04 20:00 | NUR ---
IN PT ROOM FOR ASSESSMENT. THIS HAS BEEN COMPLETED. PT HAS MULTIPLE C/O. HER COLOSTOMY BAG WAS BURPED EARLIER AND THIS IS FINE. SHE HAS A PEG TUBE IN PLACE RUNNING AT 40 ML/HR, WHICH IS HER GOAL.
--- NOTE | 2020-07-04 20:49 | NUR ---
PT WAS GIVEN MORPHINE 2 MG IV PER REQUEST. SHE RATES HER PAIN A 9. I TOLD HER THAT THE NEXT DOSE WOULD BE IN 4 HOURS, WHICH WAS 0049. I WROTE THIS ON HER WHITE BOARD.
--- NOTE | 2020-07-04 21:30 | NUR ---
PT IS STILL WIDE AWAKE AFTER HER MORPHINE. SHE RATES HER PAIN A 6.
--- NOTE | 2020-07-04 21:30 | NUR ---
IN PT ROOM TO GIVE HER MEDICATIONS. HER MEDS ARE CRUSHED AND GIVEN THROUGH HER PEG TUBE. THE PEG TUBE WAS FLUSHED BEFORE AND AFTER MEDICATIONS GIVEN. COLOSTOMY BAG STILL FINE. THERE IS NO DRAINAGE NOTED ANYWHERE ON HER ABDOMEN. PT WANTS PAIN MEDS. PT REFUSES TO USE HER SCD'S. I EXPLAINED THAT THIS WAS TO HELP PREVENT BLOOD CLOTS SINCE SHE WAS NOT GETTING UP SHE JUST SAID SHE DIDN'T WANT TO WEAR THEM. I HANDED HER THE IS AND SHE COULD BARELY GET TO 500 USING ALL HER ASSESSORY MUSCLES IN HER NECK. SHE THOUGHT THREE WAS ENOUGH, BUT I HAD HER DO IT 10 TIMES. I EXPLAINED THAT USING THE IS COULD HELP PREVENT PO PNEUMONIA. SHE MAKES NO EFFORT. SHE STATES SHE CANNOT USE HER ARMS OR LEGS. WE DID A LITTLE ROM TO HER ARMS. I EXPLAINED THAT AFTER 31 DAYS SHE SHOULD BE WORKING ON GETTING STRONGER INSTEAD OF LAYING IN BED NOT MOVING MUCH. I PUT HER IS AT HER BEDSIDE ON THE RIGHT SIDE. THE LAST ROM WE DID ON THE RIGHT WAS OVER TO THE BEDSIDE TABLE BY HER IS. THIS PT WANTS EVERYTHING DONE FOR HER. SHE ASKED IF HER 15 YO GRANDSON COULD VISIT. I TALKED TO THE CHARGE NURSE, MARTIN, ABOUT THE AGE REQUIREMENTS. SHE SAID ONE NEEDED TO BE 16 OR OLDER. THIS BOY WILL NOT BE 16 UNTIL DECEMBER. SHE WANTED TO KNOW WHY AND I TOLD HER THIS WAS HOSPITAL POLICY. I ALSO EXPLAINED THAT [employer] CHANGED ALOT OF POLICIES AND WE ALL HAD TO FOLLOW THE NEW RULES. THIS DID NOT PLEASE HER MUCH.
--- NOTE | 2020-07-04 22:30 | NUR ---
PT IS ASKING FOR PAIN MEDS. I TOLD HER IT WASN'T TIME AND IT WAS WRITTEN ON HER BOARD.
--- NOTE | 2020-07-04 23:00 | NUR ---
PT SENT RT TO TELL ME SHE NEEDS HER PAIN MEDS. I WENT IN TO HER ROOM AND TOLD HER WHEN HER NEXT DOSE WAS DUE AND IT JUST WASN'T TIME YET. SHE THEN TOLD ME I TOLD HER SHE COULD HAVE IT EVERY HOUR. I CORRECTED THAT THOUGHT IMMEDIATELY.
--- NOTE | 2020-07-04 23:30 | NUR ---
PT SENT TECH TO TELL ME SHE NEEDED HER PAIN MEDS.
[2020-07-05] VITALS: BP 119/57
--- NOTE | 2020-07-05 00:55 | NUR ---
PT WAS GIVEN MORPHINE 2 MG IV PER ORDER. I WROTE AGAIN ON HER BOARD THAT THE NEXT DOSE WOULD BE AT 0450 AND I EXPLAINED TO HER THAT IT WOULD BE 0450. SHE SAID OK.
--- NOTE | 2020-07-05 02:00 | NUR ---
PT IS RESTING QUIETLY.
--- NOTE | 2020-07-05 03:20 | NUR ---
PER MY TECH, THE PT TOLD HER THAT SHE WANTED TO GO VISIT HER AUNT. SHE WAS REORIENTED BY EXPLAINING THAT SHE WAS IN THE HOSPITAL.
--- NOTE | 2020-07-05 03:40 | NUR ---
WENT IN TO FOLLOW UP WITH PT ASKING TO GO SEE HER AUNT BUT THE PT WAS ASLEEP.
[2020-07-05 04:00] VITALS: BP 138/67
--- NOTE | 2020-07-05 04:31 | NUR ---
PT IS IN THE PROCESS OF GETTING A BATH AT THIS TIME BY THE TECH AND CHARGE NURSE. A NEW COLOSTOMY BAG WILL BE PLACED. NO C/O FROM THE PT.
--- NOTE | 2020-07-05 06:00 | NUR ---
MEDICATION GIVEN THROUGH PEG TUBE. FLUSHES WELL. PT WAS REALLY SLEEPING HARD BECAUSE SHE DID NOT OPEN HER EYES OR MAKE A SOUND THE ENTIRE TIME I WAS DOING THINGS WITH HER PEG. I DON'T THINK SHE EVEN KNEW I WAS IN THE ROOM. PT CONT TO BE NPO. PER TUNGSTEN TENDER PT IS SINUS RHYTHM AT 87 RATE
[2020-07-05 06:32] LABS: ALBUMIN 1.7 g/dL (3.4-5.0); ALKALINE PHOSPHATASE 136 U/L (30-120); ALT (SGPT) 30 U/L (10-68); BILIRUBIN - TOTAL 0.33 mg/dL (0.2-1.3); CALC OSMOLALITY 274 mosm/kg (275-300); CALCIUM 8.7 mg/dL (8.5-10.1); CARBON DIOXIDE 29.4 mmol/L (21.0-32.0); CHLORIDE - SERUM 101 mmol/L (98-107); CREATININE - SERUM 0.4 mg/dL (0.6-1.3); GLUCOSE 124 mg/dL (74-106); POTASSIUM - SERUM 4.2 mmol/L (3.5-5.1); PROTEIN - SERUM 5.1 g/dL (6.4-8.2); SODIUM 136 mmol/L (136-145); UREA NITROGEN 18 mg/dL (7-18); eGFR NON AFRICAN AMERICAN > 90 mL/min (90-120)
[2020-07-05 07:28] LABS: BASOPHILS 0.2 % (0-2); EOSINOPHILS 1.1 % (0-7); HEMATOCRIT 27.8 % (36.0-48.0); LYMPHOCYTES 14.6 % (15-50); MCH 29.5 pg (26.0-34.0); MCHC 32.4 g/dL (31.0-37.0); MCV 91.1 fL (80.0-100.0); MEAN PLATELET VOLUME 8.1 fL (7.4-10.4); MONOCYTES 10.1 % (2-11); PLATELET COUNT 367 10x3/uL (130-400); RBC 3.05 10x6/uL (4.00-5.40); RDW 19.1 % (11.5-14.5); WBC 8.6 10x3/uL (4.8-10.8)
[2020-07-05 08:39] VITALS: BP 135/71
--- NOTE | 2020-07-05 09:08 | NUR ---
PT. RESTING IN BED, EYES CLOSED, RESP EVEN AND UNLABORED. ROOM AIR. NO DISTRESS NOTED.COLOSTOMY PRESENT TO R. ABD, ROGERS DRAINING YELLOW URINE, LEFT SUBCLAVIAN CVL INFUSING D5W,PEG TUBE TO LEFT SIDE OF ABD INFUSING GLUCERNA 1.5 AT 40CC/HR. REFUSES SCDS AND IS. YELLOW GOWN ON, SOCKS ON, FALL ALARM ON. CL WITHIN REACH, SRUPX2.
--- NOTE | 2020-07-05 09:50 | MORECARE ---
CASE MANAGEMENT DISCHARGE SUMMARY PATIENT: AWA ANTONIO UNIT: [id number] ADM DATE: 06/03/20 AGE: 75 : 45 SEX: F ROOM/BED: D.2201 AUTHOR: JENNIFER,DOC PHYSICIAN: REFERRING PHYSICIAN: VIANNEY SANDERS MD DATE OF SERVICE: 07/05/20 Case Management Discharge Planning Summary COMMENTS ENTERED DATE: 07/05/20 9:43 CT COMMENT TYPE: Discharge Planning REVIEWER: Kimi Varela I HAVE SENT THE REFERRAL TO [facility], WILL WAIT FOR ANSWER ENTERED DATE: 07/03/20 13:57 CT COMMENT TYPE: Discharge Planning REVIEWER: Kimi Jacobo called this morning and stated that they did not have any bed availability. I will speak to her and see what he would like to do now. ENTERED DATE: 06/30/20 13:48 CT COMMENT TYPE: Discharge Planning REVIEWER: Kimi Varela I spoke with the patient's about a discharge plan. He stated that he would like [facility] as his first choice. GRECIA signed and I will send clinicals to them. She is a patient of Dr Gardner in [place]. There are 5 steps in their home. She did not use any DME prior to coming to the hospital. She was independent with her care. She did have the 2nd COVID vaccine on 05/08/20 ( Moderna). CM will continue to follow and assist as needed ENTERED DATE: 06/30/20 11:13 CT COMMENT TYPE: Discharge Planning REVIEWER: Kimi Varela PER OUR INPATIENT REHAB, SHE IS NOT QUALIFIED AT THIS TIME TO COME TO THEM . I SPOKE WITH THE LAYOUT WORKER ABOUT LTACH AND SHE THOUGHT THAT WOULD BE A GOOD OPTION. I SENT THE REFERRAL TO SEE IF SHE WOULD QUALIFY FOR THEIR SERVICES CM TO FOLLOW AND ASSIST DCP REVIEW SUMMARY ANTICIPATED D/C DATE: EXPECTED LOS : CASE STATUS: DCP Initiated INITIAL REVIEW: 06/03/2020 INITIAL REVIEWER: Kimi Varela FINAL DISCHARGE DISPOSITION: : FINAL REVIEWER: FINAL REVIEW DATE: DCP Focus Questions & Answers QUESTION: ANSWER : PATIENT: AWA ANTONIO ENCOUNTER: [id number] MEDICAL RECORD#: [id number] ADMISSION DATE: 06/03/2020 DISCHARGE DATE: ATTENDING MD: VIANNEY ALBA : AGE: 75 MARITAL STATUS: M DC PLAN ID: [id number] FACILITY: [facility] PRINTED ON: 07/05/20 9:50 CT All edits/amendments must be made on the electronic document DICTATION DATE: 07/05/20949 JOINTER OPERATOR: EILEEN 07/05/20949 RPT#: [id number] DC DATE: STATUS: ADM IN [facility] [address] [place] [address] END OF REPORT
--- NOTE | 2020-07-05 11:17 | NUR ---
CVL DRESSING CHANGED TO LEFT SUBCLAVIAN.
--- NOTE | 2020-07-05 12:21 | MORECARE ---
CASE MANAGEMENT DISCHARGE SUMMARY PATIENT: AWA ANTONIO UNIT: [id number] ADM DATE: 06/03/20 AGE: 75 : 45 SEX: F ROOM/BED: D.2201 AUTHOR: JENNIFER,DOC PHYSICIAN: REFERRING PHYSICIAN: VIANNEY SANDERS MD DATE OF SERVICE: 07/05/20 Case Management Discharge Planning Summary COMMENTS ENTERED DATE: 07/05/20 12:10 CT COMMENT TYPE: Discharge Planning REVIEWER: Kimi Varela I ALSO SENT A REFERRAL TO [facility] IN [place] ENTERED DATE: 07/05/20 9:43 CT COMMENT TYPE: Discharge Planning REVIEWER: Kimi Varela I HAVE SENT THE REFERRAL TO [facility], WILL WAIT FOR ANSWER ENTERED DATE: 07/03/20 13:57 CT COMMENT TYPE: Discharge Planning REVIEWER: Kimi Jacobo called this morning and stated that they did not have any bed availability. I will speak to her and see what he would like to do now. ENTERED DATE: 06/30/20 13:48 CT COMMENT TYPE: Discharge Planning REVIEWER: Kimi Varela I spoke with the patient's about a discharge plan. He stated that he would like [facility] as his first choice. GRECIA signed and I will send clinicals to them. She is a patient of Dr Gardner in [place]. There are 5 steps in their home. She did not use any DME prior to coming to the hospital. She was independent with her care. She did have the 2nd COVID vaccine on 05/08/20 ( Moderna). CM will continue to follow and assist as needed ENTERED DATE: 06/30/20 11:13 CT COMMENT TYPE: Discharge Planning REVIEWER: Kimi Varela PER OUR INPATIENT REHAB, SHE IS NOT QUALIFIED AT THIS TIME TO COME TO THEM . I SPOKE WITH THE SCOUT SNIPER ABOUT LTACH AND SHE THOUGHT THAT WOULD BE A GOOD OPTION. I SENT THE REFERRAL TO SEE IF SHE WOULD QUALIFY FOR THEIR SERVICES CM TO FOLLOW AND ASSIST DCP REVIEW SUMMARY ANTICIPATED D/C DATE: EXPECTED LOS : CASE STATUS: DCP Initiated INITIAL REVIEW: 06/03/2020 INITIAL REVIEWER: Kimi Varela FINAL DISCHARGE DISPOSITION: : FINAL REVIEWER: FINAL REVIEW DATE: DCP Focus Questions & Answers QUESTION: ANSWER : PATIENT: AWA ANTONIO ENCOUNTER: [id number] MEDICAL RECORD#: [id number] ADMISSION DATE: 06/03/2020 DISCHARGE DATE: ATTENDING MD: VIANNEY ALBA : AGE: 75 MARITAL STATUS: M DC PLAN ID: [id number] FACILITY: [facility] PRINTED ON: 07/05/20 12:20 CT All edits/amendments must be made on the electronic document DICTATION DATE: 07/05/201219 INTEGRATED PEST MANAGEMENT TECHNICIAN: EILEEN 07/05/201219 RPT#: [id number] DC DATE: STATUS: ADM IN [facility] [address] [place] [address] END OF REPORT
[2020-07-05 12:34] VITALS: BP 148/79
--- NOTE | 2020-07-05 14:22 | NUR ---
DRESSING CHANGED TO MIDLINE. NO DRAINAGE NOTED, WOUND BED IS PINK.
--- NOTE | 2020-07-05 16:22 | NUR ---
OT NOTE: UP ON ENTERING ROOM, PT WAS CRYING AND STATED " I DONT KNOW WHERE JOSE ALBERTO IS.." THERAPY DIALED NUMBER SO THAT COULD SPEAK TO HIM. PT REQUIRED TOTAL A FOR SUPINE TO SIT AT EOB. PT WORKED ON TRUNK STABILIZATION AND NECK CONTROL. PT REQUIRED TOTAL A FOR ORAL HYGIENE WITH TOTAL A. PT COMPLETED FACE HYGIENE WITH TOTAL A. PT EXHIBITED MUCH IMPROVED HEAD/NECK CONTROL. 1-191 JESSE SANTAMARIA COTA
[2020-07-05 16:54] VITALS: BP 145/76
[2020-07-05 20:00] VITALS: BP 131/68
--- NOTE | 2020-07-06 02:34 | NUR ---
BEDSIDE REPORT RECEIVED. PT WAS AGITATED REQUESTING PAIN MEDICATION AND SHE WAS EXPLAINED THAT HER NEXT DOSE WAS WITHIN 4 HOURS. PT STATED "THEY HAVE BEEN GIVIN ME PAIN MED QH". PT CHART REVIEW AND CHECKED PT WAS EXPLAINED THAT MORPHINE ORDER IS EVERY 4 HOURS. PT SENT TECH TO TELL ME SHE NEEDED PAIN MEDS @8PM AND SHE WAS INFORMED AGAIN HER NEXT DOSE TIME. PT HAS BEEN AGITATED AND DEMANDING PAIN MEDICATION EVERY HOUR SHE HAS BEEN EXPLAINED THAT THE MEDICATION IS SCHEDULED. PT SENT RT TO ASK FOR PAIN MED @11:45 AND SHE WAS INFORMED HER LAST DOSE WAS AT @10:24 THAT SHE HAS TO WAIT 4 HOURS FOR NEXT DOSE. PT CENTER DIRECTOR LIGHT AT 0019 REQUESTING PAIN MED SHE IS AGITATED AND EXPLAIN TO ME HOW EXCRUTIATING HER PAIN IS. PROVIDER WAS CONTACTED ON THE MATTER PT HAS BEEN ON THE SAME MED FOR 1 MONTH AND THE DOSAGE HAS CHANGE ONCE, SHE WAS EXPLAINED THAT PT HAS BEEN VERY AGITATED AND DEMANING AND REQUESTING PAIN MED EVERY HOUR. AM NURSE WILL BE INFORMED ABOUT THE SITUATION AND SHE CAN MAKE MD AND CURTAIN FRAMER AM AWARE AND THEY CAN DISCUSS THIS ISSUE WITH PT AND . WILL CONT TO MONITOR
[2020-07-06 04:00] VITALS: BP 140/72
--- NOTE | 2020-07-06 05:32 | NUR ---
COLOSTOMY BAG BURPED PER PATIENT "SHE CANNOT STAND THE SMELL COMING OUT OF THE BAG". CLEAN AREA AROUND THE BAG AND PLACE A TOWEL UNDER TO HELP IF ANY LEAKIN MIGHT OCCUR. PT WILL CONT TO MONITOR.
[2020-07-06 05:57] LABS: BASOPHILS 0.1 % (0-2); EOSINOPHILS 1.2 % (0-7); HEMATOCRIT 27.1 % (36.0-48.0); HEMOGLOBIN 8.8 g/dL (12-16); LYMPHOCYTES 13.1 % (15-50); MCH 29.5 pg (26.0-34.0); MCHC 32.5 g/dL (31.0-37.0); MCV 90.8 fL (80.0-100.0); MEAN PLATELET VOLUME 8.1 fL (7.4-10.4); MONOCYTES 8.8 % (2-11); NEUTROPHILS 76.8 % (40-80); PLATELET COUNT 357 10x3/uL (130-400); RBC 2.98 10x6/uL (4.00-5.40); RDW 18.8 % (11.5-14.5); WBC 9.8 10x3/uL (4.8-10.8)
[2020-07-06 06:27] LABS: ALBUMIN 1.7 g/dL (3.4-5.0); ALKALINE PHOSPHATASE 130 U/L (30-120); ALT (SGPT) 33 U/L (10-68); BILIRUBIN - TOTAL 0.28 mg/dL (0.2-1.3); CALC OSMOLALITY 265 mosm/kg (275-300); CALCIUM 8.6 mg/dL (8.5-10.1); CARBON DIOXIDE 28.9 mmol/L (21.0-32.0); CHLORIDE - SERUM 97 mmol/L (98-107); CREATININE - SERUM 0.5 mg/dL (0.6-1.3); GLUCOSE 117 mg/dL (74-106); POTASSIUM - SERUM 4.3 mmol/L (3.5-5.1); PROTEIN - SERUM 5.2 g/dL (6.4-8.2); SODIUM 131 mmol/L (136-145); UREA NITROGEN 17 mg/dL (7-18); eGFR NON AFRICAN AMERICAN > 90 mL/min (90-120)
--- NOTE | 2020-07-06 07:32 | MORECARE ---
CASE MANAGEMENT DISCHARGE SUMMARY PATIENT: AWA ANTONIO UNIT: [id number] ADM DATE: 06/03/20 AGE: 75 : 45 SEX: F ROOM/BED: D.2201 AUTHOR: JENNIFER,DOC PHYSICIAN: REFERRING PHYSICIAN: VIANNEY SANDERS MD DATE OF SERVICE: 07/06/20 Case Management Discharge Planning Summary COMMENTS ENTERED DATE: 07/06/20 7:29 CT COMMENT TYPE: Discharge Planning REVIEWER: Kimi Varela sent updates to [facility], will get determination this AM and present to patient and spouse CM to follow ENTERED DATE: 07/05/20 12:10 CT COMMENT TYPE: Discharge Planning REVIEWER: Kimi Varela I ALSO SENT A REFERRAL TO [facility] IN [place] ENTERED DATE: 07/05/20 9:43 CT COMMENT TYPE: Discharge Planning REVIEWER: Kimi Varela I HAVE SENT THE REFERRAL TO [facility], WILL WAIT FOR ANSWER ENTERED DATE: 07/03/20 13:57 CT COMMENT TYPE: Discharge Planning REVIEWER: Kimi Jacobo called this morning and stated that they did not have any bed availability. I will speak to her and see what he would like to do now. ENTERED DATE: 06/30/20 13:48 CT COMMENT TYPE: Discharge Planning REVIEWER: Kimi Varela I spoke with the patient's about a discharge plan. He stated that he would like [facility] his first choice. GRECIA signed and I will send clinicals to them. She is a patient of Dr Gardenr in [place]. There are 5 steps in their home. She did not use any DME prior to coming to the hospital. She was independent with her care. She did have the 2nd COVID vaccine on 05/08/20 ( Moderna). CM will continue to follow and assist as needed ENTERED DATE: 06/30/20 11:13 CT COMMENT TYPE: Discharge Planning REVIEWER: Kimi Varela PER OUR INPATIENT REHAB, SHE IS NOT QUALIFIED AT THIS TIME TO COME TO THEM . I SPOKE WITH THE BOOKING CLERK ABOUT LTACH AND SHE THOUGHT THAT WOULD BE A GOOD OPTION. I SENT THE REFERRAL TO SEE IF SHE WOULD QUALIFY FOR THEIR SERVICES CM TO FOLLOW AND ASSIST DCP REVIEW SUMMARY ANTICIPATED D/C DATE: EXPECTED LOS : CASE STATUS: DCP Initiated INITIAL REVIEW: 06/03/2020 INITIAL REVIEWER: Kimi Varela FINAL DISCHARGE DISPOSITION: : FINAL REVIEWER: FINAL REVIEW DATE: DCP Focus Questions & Answers QUESTION: ANSWER : PATIENT: AWA ANTONIO ENCOUNTER: [id number] MEDICAL RECORD#: [id number] ADMISSION DATE: 06/03/2020 DISCHARGE DATE: ATTENDING MD: VIANNEY ALBA : [id number] AGE: 75 MARITAL STATUS: M DC PLAN ID: [id number] FACILITY: [facility] PRINTED ON: 07/06/20 7:32 CT All edits/amendments must be made on the electronic document DICTATION DATE: 07/06/20731 COD CLERK: DM 07/06/20731 RPT#: [id number] DC DATE: STATUS: ADM IN [facility] [address] [place] [address] END OF REPORT
[2020-07-06 08:25] VITALS: BP 129/69
--- NOTE | 2020-07-06 09:28 | NUR ---
PT. RESTING IN BED, REPOSITIONED IN BED, EDEMA NOTED TO BLE, SCDS ON, PT EDUCATED ON NEED TO MOVE AROUND MORE AND TRYING TO WORK ARMS AND LEGS. REFUSES TO DO IS AND REACH FOR WATER ON BEDSIDE TABLE SAYING SHE IS UNABLE TO. L SUBCLAVIAN CVL DRY AND INTACT. D5W INFUSING. DSG CHANGED 07/05. PEG TUBE INTACT AND INFUSING GLUCERNA 1.5 AT 40CC/HR. PT. REFUSING BREAKFAST AT THIS TIME. PO MEDS TOLERATED CRUSHED IN APPLE SAUCE. CL IN REACH. SRUPX2.
--- NOTE | 2020-07-06 09:39 | NUR ---
DRESSING CHANGED TO MIDINE ABDOMEN. SMALL SEROSANGENIOUS DRAINAGE NOTED ON OLD BANDAGE. GAUZE PLACED ON SITE AND COVERED WITH TAPE.
[2020-07-06 10:10] LABS: MAGNESIUM - SERUM 1.5 mg/dL (1.8-2.4); PHOSPHOROUS 4.3 mg/dL (2.5-4.9)
[2020-07-06 12:50] VITALS: BP 127/64
--- NOTE | 2020-07-06 14:14 | NUR ---
OT NOTE: EXTENSIVE TIME SPENT WITH PT TODAY. PT WAS MORE LETHARGIC BUT AROUSED EASILY.. PT REPORTS FEELING FRUSTRATED THAT SHE IS IN THIS SITUATION AND WANTS TO KNOW WHEN SHE WILL BE OVER THIS. INFORMED PT, TODAY AND DAILY, THAT SHE HAS TO WORK ON THINGS ON HER OWN WHEN THERAPY IS NOT IN ROOM. PT REPORTS UNDERSTANDING, HOWEVER, I DONT THINK THAT SHE IS REMEMBERING TO DO THIS. PRACTICED EXTENSIVE MOBILITY, STRETCHING, WT BEARING , AND EXS.. PT DOING BETTER WITH UE AROM EXS.. SHE IS ABLE TO PERFORM 2 SETS OF 5 WITH GRAVITY ELEMINATED... PERFORMED HIP ROTATIONS IN BED; PRACTICED STEP BY STEP TASKS OF ROLLING FROM SIDE TO SIDE; ATTEMPTED PULL UPS WITH UES. CERVICAL STRENGTHENING EXS. POSITIONED ON HER R SIDE WITH WEDGES AND PILLOWS. SAMANTHA THORNTON, OTR/L [phone]
[2020-07-06] MEDS ORDERED: ELIQUIS5 MG PO (14:33)
[2020-07-06] MEDS ORDERED: XIFAXAN550 MG NG (14:33)
[2020-07-06] MEDS ORDERED: AMIODARONE HCL200 MG PO (14:38)
[2020-07-06] MEDS ORDERED: DIFLUCAN100 MG PO (14:47)
--- NOTE | 2020-07-06 14:51 | MORECARE ---
CASE MANAGEMENT DISCHARGE SUMMARY PATIENT: AWA ANTONIO UNIT: [id number] ADM DATE: 06/03/20 AGE: 75 : 45 SEX: F ROOM/BED: D.2201 AUTHOR: JENNIFER,DOC PHYSICIAN: REFERRING PHYSICIAN: VIANNEY SANDERS MD DATE OF SERVICE: 07/06/20 Case Management Discharge Planning Summary COMMENTS ENTERED DATE: 07/06/20 14:38 CT COMMENT TYPE: Discharge Planning REVIEWER: Kimi Nichole Patient has been accepted to inpatient rehab at [facility] and explained to both spouse and patient. [facility] will arrange transportation. She will transfer via EMS. CM to follow as needed ENTERED DATE: 07/06/20 7:29 CT COMMENT TYPE: Discharge Planning REVIEWER: Kimi Varela sent updates to [facility], will get determination this AM and present to patient and spouse CM to follow ENTERED DATE: 07/05/20 12:10 CT COMMENT TYPE: Discharge Planning REVIEWER: Kimi Varela I ALSO SENT A REFERRAL TO [facility] IN [place] ENTERED DATE: 07/05/20 9:43 CT COMMENT TYPE: Discharge Planning REVIEWER: Kimi Varela I HAVE SENT THE REFERRAL TO [facility], WILL WAIT FOR ANSWER ENTERED DATE: 07/03/20 13:57 CT COMMENT TYPE: Discharge Planning REVIEWER: Kimi Jacobo called this morning and stated that they did not have any bed availability. I will speak to her and see what he would like to do now. ENTERED DATE: 06/30/20 13:48 CT COMMENT TYPE: Discharge Planning REVIEWER: Kimi Varela I spoke with the patient's about a discharge plan. He stated that he would like [facility] as his first choice. GRECIA signed and I will send clinicals to them. She is a patient of Dr Gardner in [place]. There are 5 steps in their home. She did not use any DME prior to coming to the hospital. She was independent with her care. She did have the 2nd COVID vaccine on 05/08/20 ( Moderna). CM will continue to follow and assist as needed ENTERED DATE: 06/30/20 11:13 CT COMMENT TYPE: Discharge Planning REVIEWER: Kimi Varela PER OUR INPATIENT REHAB, SHE IS NOT QUALIFIED AT THIS TIME TO COME TO THEM . I SPOKE WITH THE DANCE THERAPIST ABOUT LTACH AND SHE THOUGHT THAT WOULD BE A GOOD OPTION. I SENT THE REFERRAL TO SEE IF SHE WOULD QUALIFY FOR THEIR SERVICES CM TO FOLLOW AND ASSIST DCP REVIEW SUMMARY ANTICIPATED D/C DATE: EXPECTED LOS : CASE STATUS: DCP Initiated INITIAL REVIEW: 06/03/2020 INITIAL REVIEWER: Kimi Varela FINAL DISCHARGE DISPOSITION: : FINAL REVIEWER: FINAL REVIEW DATE: DCP Focus Questions & Answers QUESTION: ANSWER : PATIENT: AWA ANTONIO ENCOUNTER: [id number] MEDICAL RECORD#: [id number] ADMISSION DATE: 06/03/2020 DISCHARGE DATE: ATTENDING MD: VIANNEY ALBA : AGE: 75 MARITAL STATUS: M DC PLAN ID: [id number] FACILITY: [facility] PRINTED ON: 07/06/20 14:51 CT All edits/amendments must be made on the electronic document DICTATION DATE: 07/06/201450 TEXTILE CUTTING MACHINE OPERATOR: DM 07/06/201450 RPT#: [id number] DC DATE: STATUS: ADM IN [facility] [address] [place] [address] END OF REPORT
[2020-07-06] MEDS ORDERED: HYDROCODON-ACE1 EAC7 PO (15:32)
--- NOTE | 2020-07-06 15:51 | NUR ---
ROGERS AND CVL REMOVED FOR DISCHARGE. SMALL AMT BLEEDING NOTED TO CVL SITE AFTER REMOVAL. STOPPED AFTER PRESSURE HELD. PRESSURE TEGADERM DRESSING PLACED OVER SITE. PEG TUBE FLUSHED, PAIN PILL GIVEN FOR PAIN 10/27. COLOSTOMY EMPTIED OF 200ML LIQUID STOOL. TELE MONITOR REMOVED. IN ROOM.
--- NOTE | 2020-07-06 16:23 | NUR ---
REPORT GIVEN TO LORENA MODI AT [facility]. AWAITING EMS RIDE TO [facility].
--- NOTE | 2020-07-06 16:56 | NUR ---
PURE WICK PLACED ON PATIENT.
--- NOTE | 2020-07-06 18:32 | NUR ---
STILL AWAITING PT TO VOID POST ROGERS REMOVAL. PLAN TO REPLACE ROGERS CATH IF UNABLE TO VOID BY [phone]. AWAITING EMS ARRIVAL.
--- NOTE | 2020-07-06 20:08 | NUR ---
PT UNABLE TO URINE ON HER OWN ROGERS WAS PLACE WHEN EMS ARRIVE TO TRANSFER.
--- NOTE | 2020-07-06 20:19 | MORECARE ---
CASE MANAGEMENT DISCHARGE SUMMARY PATIENT: AWA ANTONIO UNIT: [id number] ADM DATE: 06/03/20 AGE: 75 : 45 SEX: F ROOM/BED: D.2201 AUTHOR: JENNIFER,DOC PHYSICIAN: REFERRING PHYSICIAN: VIANNEY SANDERS MD DATE OF SERVICE: 07/06/20 Case Management Discharge Planning Summary COMMENTS ENTERED DATE: 07/06/20 14:38 CT COMMENT TYPE: Discharge Planning REVIEWER: Kimi Nichole Patient has been accepted to inpatient rehab at [facility] and explained to both spouse and patient. [facility] will arrange transportation. She will transfer via EMS. CM to follow as needed ENTERED DATE: 07/06/20 7:29 CT COMMENT TYPE: Discharge Planning REVIEWER: Kimi Varela sent updates to [facility], will get determination this AM and present to patient and spouse CM to follow ENTERED DATE: 07/05/20 12:10 CT COMMENT TYPE: Discharge Planning REVIEWER: Kimi Varela I ALSO SENT A REFERRAL TO [facility] IN [place] ENTERED DATE: 07/05/20 9:43 CT COMMENT TYPE: Discharge Planning REVIEWER: Kimi Varela I HAVE S[facility], WILL WAIT FOR ANSWER ENTERED DATE: 07/03/20 13:57 CT COMMENT TYPE: Discharge Planning REVIEWER: Kimi Jacobo called this morning and stated that they did not have any bed availability. I will speak to her and see what he would like to do now. ENTERED DATE: 06/30/20 13:48 CT COMMENT TYPE: Discharge Planning REVIEWER: Kimi Varela I spoke with the patient's about a discharge plan. He stated that he would like [facility] long-term as his first choice. [facility] signed and I will send clinicals to them. She is a patient of Dr Gardner in [place]. There are 5 steps in their home. She did not use any DME prior to coming to the hospital. She was independent with her care. She did have the 2nd COVID vaccine on 05/08/20 ( Moderna). CM will continue to follow and assist as needed ENTERED DATE: 06/30/20 11:13 CT COMMENT TYPE: Discharge Planning REVIEWER: Kimi Varela PER OUR INPATIENT REHAB, SHE IS NOT QUALIFIED AT THIS TIME TO COME TO THEM . I SPOKE WITH THE GRAPHICS PROGRAMMER ABOUT LTACH AND SHE THOUGHT THAT WOULD BE A GOOD OPTION. I SENT THE REFERRAL TO SEE IF SHE WOULD QUALIFY FOR THEIR SERVICES CM TO FOLLOW AND ASSIST DCP REVIEW SUMMARY ANTICIPATED D/C DATE: EXPECTED LOS : CASE STATUS: DCP Initiated INITIAL REVIEW: 06/03/2020 INITIAL REVIEWER: Kimi Varela FINAL DISCHARGE DISPOSITION: : FINAL REVIEWER: FINAL REVIEW DATE: DCP Focus Questions & Answers QUESTION: ANSWER : PATIENT: AWA ANTONIO ENCOUNTER: [id number] MEDICAL RECORD#: [id number] ADMISSION DATE: 06/03/2020 DISCHARGE DATE: 07/06/2020 ATTENDING MD: VIANNEY ALBA : [id number][birth year] AGE: 75 MARITAL STATUS: M DC PLAN ID: [id number] FACILITY: [facility] PRINTED ON: 07/06/20 20:19 CT All edits/amendments must be made on the electronic document DICTATION DATE: 07/06/202018 TRAVELING REPAIR ACCOUNTANT: EILEEN 07/06/202018 RPT#: [id number] DC DATE:07/06/20 STATUS: DIS IN [facility] [address] [place] [address] END OF REPORT
--- NOTE | 2020-07-07 08:39 | MORECARE ---
CASE MANAGEMENT DISCHARGE SUMMARY PATIENT: AWA ANTONIO UNIT: [id number] ADM DATE: 06/03/20 AGE: 75 : 45 SEX: F ROOM/BED: D.2201 AUTHOR: JENNIFER,DOC PHYSICIAN: REFERRING PHYSICIAN: VIANNEY SANDERS MD DATE OF SERVICE: 07/07/20 Case Management Discharge Planning Summary COMMENTS ENTERED DATE: 07/06/20 14:38 CT COMMENT TYPE: Discharge Planning REVIEWER: Kimi Nichole Patient has been accepted to inpatient rehab at [facility] and explained to both spouse and patient. [facility] will arrange transportation. She will transfer via EMS. CM to follow as needed ENTERED DATE: 07/06/20 7:29 CT COMMENT TYPE: Discharge Planning REVIEWER: Kimi Varela sent updates to [facility], will get determination this AM and present to patient and spouse CM to follow ENTERED DATE: 07/05/20 12:10 CT COMMENT TYPE: Discharge Planning REVIEWER: Kimi Varela I ALSO SENT A REFERRAL TO [facility] IN [place] ENTERED DATE: 07/05/20 9:43 CT COMMENT TYPE: Discharge Planning REVIEWER: Kimi Varela I HAVE SENT THE REFERRAL TO [facility], WILL WAIT FOR ANSWER ENTERED DATE: 07/03/20 13:57 CT COMMENT TYPE: Discharge Planning REVIEWER: Kimi Jacobo called this morning and stated that they did not have any bed availability. I will speak to her and see what he would like to do now. ENTERED DATE: 06/30/20 13:48 CT COMMENT TYPE: Discharge Planning REVIEWER: Kimi Varela I spoke with the patient's about a discharge plan. He stated that he would like [facility] as his first choice. GRECIA signed and I will send clinicals to them. She is a patient of Dr Gardner in [place]. There are 5 steps in their home. She did not use any DME prior to coming to the hospital. She was independent with her care. She did have the 2nd COVID vaccine on 05/08/20 ( Moderna). CM will continue to follow and assist as needed ENTERED DATE: 06/30/20 11:13 CT COMMENT TYPE: Discharge Planning REVIEWER: Kimi Varela PER OUR INPATIENT REHAB, SHE IS NOT QUALIFIED AT THIS TIME TO COME TO THEM . I SPOKE WITH THE MACHINE PAN GREASER ABOUT LTACH AND SHE THOUGHT THAT WOULD BE A GOOD OPTION. I SENT THE REFERRAL TO SEE IF SHE WOULD QUALIFY FOR THEIR SERVICES CM TO FOLLOW AND ASSIST DCP REVIEW SUMMARY ANTICIPATED D/C DATE: EXPECTED LOS : CASE STATUS: DCP Initiated INITIAL REVIEW: 06/03/2020 INITIAL REVIEWER: Kimi Varela FINAL DISCHARGE DISPOSITION: : FINAL REVIEWER: FINAL REVIEW DATE: DCP Focus Questions & Answers QUESTION: ANSWER : PATIENT: AWA ANTONIO ENCOUNTER: [id number] MEDICAL RECORD#: [id number] ADMISSION DATE: 06/03/2020 DISCHARGE DATE: 07/06/2020 ATTENDING MD: VIANNEY ALBA : [id number]-Apr-[id number] AGE: 75 MARITAL STATUS: M DC PLAN ID: [id number] FACILITY: [facility] PRINTED ON: 07/07/20 8:38 CT All edits/amendments must be made on the electronic document DICTATION DATE: 07/07/2038 BIOMASS POWER PLANT SUPERINTENDENT: EILEEN 07/07/2038 RPT#: [id number] DC DATE:07/06/20 STATUS: DIS IN [facility] [address] [facility] [place] [address] END OF REPORT
== END 2020-07-06 20:12 | DRG 853 ==
LOC: D.ER 08:50 → D.ICU 09:53 → D.CVICU 06-08 18:27 → D.ICU 06-10 11:06 → D.MS 06-23 16:57 → D.ICU 06-24 13:23 → D.MS 06-27 17:48
PROVIDERS: Family Medicine; Family Medicine Adult Medicine; Internal Medicine Hematology & Oncology; Internal Medicine Nephrology; Internal Medicine Pulmonary Disease; Surgery; ADMIT Family Medicine; ATTEND Family Medicine
PROC: B546ZZA Ultrasonography of Right Subclavian Vein, Guidance (ICD-10-PCS; 2020-06-03)
PROC: 04HK33Z Insertion of Infusion Device into Right Femoral Artery, Percutaneous Approach (ICD-10-PCS; 2020-06-03)
PROC: 0DTG0ZZ Resection of Left Large Intestine, Open Approach (ICD-10-PCS; principal; 2020-06-03 15:00)
PROC: 0JB80ZZ Excision of Abdomen Subcutaneous Tissue and Fascia, Open Approach (ICD-10-PCS; 2020-06-03 15:00)
PROC: 05H533Z Insertion of Infusion Device into Right Subclavian Vein, Percutaneous Approach (ICD-10-PCS; 2020-06-03 15:00)
PROC: 0BH17EZ Insertion of Endotracheal Airway into Trachea, Via Natural or Artificial Opening (ICD-10-PCS; 2020-06-12)
PROC: 5A1955Z Respiratory Ventilation, Greater than 96 Consecutive Hours (ICD-10-PCS; 2020-06-12)
PROC: 0B9L8ZX Drainage of Left Lung, Via Natural or Artificial Opening Endoscopic, Diagnostic (ICD-10-PCS; 2020-06-12)
PROC: 05H533Z Insertion of Infusion Device into Right Subclavian Vein, Percutaneous Approach (ICD-10-PCS; 2020-06-15)
PROC: 0B9F8ZZ Drainage of Right Lower Lung Lobe, Via Natural or Artificial Opening Endoscopic (ICD-10-PCS; 2020-06-17)
PROC: 0DH63UZ Insertion of Feeding Device into Stomach, Percutaneous Approach (ICD-10-PCS; 2020-06-26)
DX: A41.9 Sepsis, unspecified organism (principal); R65.21 Severe sepsis with septic shock; J96.01 Acute respiratory failure with hypoxia; G93.41 Metabolic encephalopathy; N17.0 Acute kidney failure with tubular necrosis; I21.A1 Myocardial infarction type 2; J69.0 Pneumonitis due to inhalation of food and vomit; K72.00 Acute and subacute hepatic failure without coma; D65 Disseminated intravascular coagulation [defibrination syndrome]; K55.9 Vascular disorder of intestine, unspecified; I47.1 Supraventricular tachycardia; E44.0 Moderate protein-calorie malnutrition; Z20.822 Contact with and (suspected) exposure to COVID-19; E11.9 Type 2 diabetes mellitus without complications; I48.91 Unspecified atrial fibrillation; I10 Essential (primary) hypertension; E03.9 Hypothyroidism, unspecified; E78.5 Hyperlipidemia, unspecified; R10.0 Acute abdomen; D17.79 Benign lipomatous neoplasm of other sites; Z86.718 Personal history of other venous thrombosis and embolism; R62.7 Adult failure to thrive; Z68.25 Body mass index [BMI] 25.0-25.9, adult

== ENCOUNTER 2020-07-22 19:34 | Inpatient (IN) | payer MEDICARE, BC ==
[~2020-07-22] VITALS: Ht 157.5 cm; Wt 54.4 kg
[~2020-07-22 19:34] MED LIST changes: +AMIODARONE HCL200 MG PO; +DIFLUCAN100 MG PO; +ELIQUIS5 MG PO; +FLAGYL500 MG; +HYDROCODON-ACE1 EAC7 PO; +OMEPRAZOLE40 MG; +OMEPRAZOLE40 MG PO; +XIFAXAN550 MG NG
[2020-07-22 21:06] VITALS: BP 129/80
[2020-07-22 21:12] LABS: BASOPHILS 0.3 % (0-2); EOSINOPHILS 0.4 % (0-7); HEMATOCRIT 41.5 % (36.0-48.0); HEMOGLOBIN 13.3 g/dL (12-16); LYMPHOCYTES 8.6 % (15-50); MCV 93.8 fL (80.0-100.0); MEAN PLATELET VOLUME 6.7 fL (7.4-10.4); MONOCYTES 3.2 % (2-11); NEUTROPHILS 87.5 % (40-80); PLATELET COUNT 366 10x3/uL (130-400); RBC 4.42 10x6/uL (4.00-5.40); RDW 19.5 % (11.5-14.5)
[2020-07-22 21:19] LABS: PLATELET ESTIMATE NORMAL
--- NOTE | 2020-07-22 21:30 | NUR ---
PATIENT IN WITH C/O ABD PAIN, THAT CAME ON SUDDENLY, HAS DECREASED BOWEL SOUNDS. HAS A COLOSTOMY X 2 MONTHS, DISCHARGED FROM INPATIENT REHAB AT 1400 THIS AFTERNOON. SPOUSE TO BEDSIDE
[2020-07-22] MEDS ORDERED: SEROQUEL25 MG PO (21:56)
[2020-07-22] MEDS ORDERED: COLACE100 MG PO (21:56)
[2020-07-22] MEDS ORDERED: FERROUS SULFAT325 MG PO (21:57)
[2020-07-22 21:58] LABS: CALC OSMOLALITY 267 mosm/kg (275-300); CALCIUM 7.9 mg/dL (8.5-10.1); CARBON DIOXIDE 25.8 mmol/L (21.0-32.0); CHLORIDE - SERUM 100 mmol/L (98-107); CREATININE - SERUM 0.5 mg/dL (0.6-1.3); GLUCOSE 112 mg/dL (74-106); POTASSIUM - SERUM 4.5 mmol/L (3.5-5.1); SODIUM 133 mmol/L (136-145); UREA NITROGEN 14 mg/dL (7-18); eGFR NON AFRICAN AMERICAN > 90 mL/min (90-120)
--- NOTE | 2020-07-22 22:00 | NUR ---
PATIENT ARRIVED WITH INDWELLING ROGERS IN PLACE DRAINING YELLOW URINE, G-TUBE IN PLACE, AND COLOSTOMY SITE WNL.
[2020-07-22 22:03] LABS: ALKALINE PHOSPHATASE 82 U/L (30-120); ALT (SGPT) 14 U/L (10-68); AMYLASE - SERUM 20 U/L (25-115); BILIRUBIN - TOTAL 0.55 mg/dL (0.2-1.3); PROTEIN - SERUM 5.3 g/dL (6.4-8.2)
[2020-07-22 22:04] LABS: LIPASE 36 U/L (73-393)
[2020-07-22 22:25] VITALS: BP 135/75
--- NOTE | 2020-07-22 23:05 | NUR ---
PATIENT STATES SHE IS FEELING A LITTLE BETTER,
[2020-07-23] VITALS (10 sets, daily range): BP systolic 127–185; BP diastolic 64–87
[2020-07-23 00:25] LABS: BILIRUBIN NEGATIVE (NEGATIVE); KETONE NEGATIVE (NEGATIVE); NITRITE NEGATIVE (NEGATIVE); UROBILINOGEN NORMAL mg/dL (< 2)
[2020-07-23 01:06] LABS: INR 1.69 (0.85-1.17); PROTIME 18.5 SECONDS (11.6-15.0)
[2020-07-23 01:07] LABS: D-DIMER-QUANTITATIVE 0.49 ug/mLFEU (0.20-0.54)
[2020-07-23 01:28] LABS: CREATINE KINASE 70 UL (21-215)
--- NOTE | 2020-07-23 01:29 | NUR ---
REPORT GIVEN TO JESSICA CARRILLO
[2020-07-23 08:39] LABS: ALBUMIN 1.5 g/dL (3.4-5.0); ALKALINE PHOSPHATASE 64 U/L (30-120); ALT (SGPT) 11 U/L (10-68); BILIRUBIN - TOTAL 0.36 mg/dL (0.2-1.3); CARBON DIOXIDE 20.9 mmol/L (21.0-32.0); CHLORIDE - SERUM 109 mmol/L (98-107); CKMB 1.5 U/L (0.0-3.6); CREATINE KINASE 49 UL (21-215); SODIUM 139 mmol/L (136-145); TROPONIN-I 0.037 ng/mL (0.000-0.060); UREA NITROGEN 11 mg/dL (7-18)
[2020-07-23 08:41] LABS: CALC OSMOLALITY 274 mosm/kg (275-300); CREATININE - SERUM 0.3 mg/dL (0.6-1.3); MAGNESIUM - SERUM 0.7 mg/dL (1.8-2.4); eGFR NON AFRICAN AMERICAN > 90 mL/min (90-120)
[2020-07-23 08:43] LABS: POTASSIUM - SERUM 2.9 mmol/L (3.5-5.1)
[2020-07-23 08:44] LABS: GLUCOSE 67 mg/dL (74-106); PROTEIN - SERUM 3.9 g/dL (6.4-8.2)
[2020-07-23 11:13] LABS: BASOPHILS 0.3 % (0-2); EOSINOPHILS 1.9 % (0-7); HEMOGLOBIN 7.6 g/dL (12-16); LYMPHOCYTES 11.2 % (15-50); MCH 30.2 pg (26.0-34.0); MCHC 31.5 g/dL (31.0-37.0); MEAN PLATELET VOLUME 6.4 fL (7.4-10.4); MONOCYTES 6.2 % (2-11); NEUTROPHILS 80.4 % (40-80); RBC 2.53 10x6/uL (4.00-5.40); RDW 19.7 % (11.5-14.5); WBC 6.4 10x3/uL (4.8-10.8)
[2020-07-23 11:14] LABS: HEMATOCRIT 24.3 % (36.0-48.0); PLATELET COUNT 204 10x3/uL (130-400)
[2020-07-23 13:19] LABS: CKMB 2.3 U/L (0.0-3.6); CREATINE KINASE 62 UL (21-215); TROPONIN-I 0.028 ng/mL (0.000-0.060)
--- NOTE | 2020-07-23 14:36 | NUR ---
PATIENT HAS MANY COMPLAINTS, STATES SHE IS IN PAIN, IT IS TIME FOR PAIN MEDICATION, ALTHOUGH SHE DOSEN'T WANT IT IV, STATES HER IV IS PAINFUL. DISCUSSED THAT I NEEDED TO START A NEW IV, PATIENT REFUSED. STATES SHE WANTS SOMETHING FOR ANXIETY AND PAIN, WANTS THE IV OUT AND THE ROGERS OUT, THAT ITS PAINFUL. ROGERS IS DRAINING WNL, REPOSITIONED PATIENTS LEGS, STATES IT IS SOMEWHAT BETTER. PAGED HER PROVIDER TO SEE WHAT THE TREATMENT PLAN IS FOR PATIENT, SPOUSE AT BEDSIDE.
--- NOTE | 2020-07-23 14:48 | NUR ---
ALEXANDRO VU TAKING CALL FOR DR. DIEGO, STATED SURGERY HAS CONSULTED, PATIENT WILL CONTIUNE TO BE MONITORED, WANTS A NEW IV ESTABLISHED. GAVE NEW ORDER FOR ATIVAN.
--- NOTE | 2020-07-23 16:09 | NUR ---
REMOVED IV FROM LEFT FOREARM D/T PAINFULNESS. NEW IV SITED LEFT AC WITH 20 GAUGE. PT TOLERATED WELL.
[2020-07-23 21:13] LABS: CALC OSMOLALITY 274 mosm/kg (275-300); CARBON DIOXIDE 24.3 mmol/L (21.0-32.0); CHLORIDE - SERUM 103 mmol/L (98-107); GLUCOSE 81 mg/dL (74-106); SODIUM 138 mmol/L (136-145); UREA NITROGEN 12 mg/dL (7-18)
[2020-07-23 21:15] LABS: CREATININE - SERUM 0.4 mg/dL (0.6-1.3); POTASSIUM - SERUM 4.2 mmol/L (3.5-5.1); eGFR NON AFRICAN AMERICAN > 90 mL/min (90-120)
[2020-07-23 21:16] LABS: BASOPHILS 0.1 % (0-2); CALCIUM 7.8 mg/dL (8.5-10.1); EOSINOPHILS 1.3 % (0-7); HEMATOCRIT 37.5 % (36.0-48.0); HEMOGLOBIN 11.7 g/dL (12-16); IMMATURE GRANULOCYTES 0.3 % (0-5); LYMPHOCYTE ABS# 1.17 10x3/uL (1.18-3.74); LYMPHOCYTES 15.7 % (15-50); MCH 29.6 pg (26.0-34.0); MCHC 31.2 g/dL (31.0-37.0); MCV 94.9 fL (80.0-100.0); MEAN PLATELET VOLUME 9.2 fL (7.4-10.4); MONOCYTES 8.2 % (2-11); NEUTROPHIL ABS# 5.52 10x3/uL (1.56-6.13); NEUTROPHILS 74.4 % (40-80); PLATELET COUNT 333 10x3/uL (130-400); RBC 3.95 10x6/uL (4.00-5.40); RDW 18.2 % (11.5-14.5); WBC 7.4 10x3/uL (4.8-10.8)
--- NOTE | 2020-07-24 00:09 | NUR ---
CALL PLACED TO SURGEON TO CLARIFY ORDER FOR NGT DURING CHART CHECKS. AWAITING RETURN CALL. MED 2 NURSE NOTIFIED NEED FOR ORDER CLARIFICATION.
--- NOTE | 2020-07-24 00:30 | NUR ---
RECEIVED PT TO FLOOR FROM ER VIA STRETCHER. HOOKED UP G-TUBE TO GRAVITY. EMPTIED 250 FROM COLOSTOMY DARK LIQUID STOOL. PT DENIES NAUSEA. C/O PAIN / ALTHOUGH SHE HAD MORPHINE 4MG IN ER AT 0005. LEFT AC IV IS POSITIONAL INFUSING NS @ 50. ROGERS CATH IN PLACE PRIOR TO ARRIVAL AT HOSPITAL. PT STATES ROGERS HAS NOT BEEN CHANGED SINCE HER PRIOR VIIST HERE AT END OF JUNE WHEN IT WAS PLACED. BOWEL SOUNDS ARE ACTIVE ALL FOUR QUADS. WOUND NOTED DISTAL END OF MIDLINE INCISION FROM PRIOR COLECTOMY WITH SCANT BLOODY DRAINAGE. [facility] WAS CLEANSING WOUND BID, PACKING WITH DRY 4X4. [facility] STATED PT'S DIET WAS SOFT DIET WITH THIN LIQUIDS WITH NO RESTRICTIONS BUT PT WAS FEEDER DUE TO LACK OF DESIRE TO EAT. RECEIVED MED LIST OVER PHONE FROM [facility]. NO OTHER NEEDS. SCD'S ON AND INCENTIVE SPIROMETER INSTRUCTED.
[2020-07-24 00:40] VITALS: BP 171/85
[2020-07-24] MEDS ORDERED: METOPROLOL TART50 MG PO (00:48)
[2020-07-24 04:00] VITALS: BP 174/70
[2020-07-24 04:45] VITALS: BMI 22.0
--- NOTE | 2020-07-24 06:00 | NUR ---
LEFT AC IV NO LONGER PATENT AND STARTING TO SWELL. REMOVED IV CATHETER INTACT. 2 UNSUCCESSFUL ATTEMPTS TO RESITE. PT REFUSES TO HAVE IV RESITED. PT IS VERY HARD STICK AND LAST IV WAS PLACED WITH AID OF ULTRASOUND. SPOKE WITH PT ABOUT NEED FOR CENTRAL LINE OR PICC - PT STATES, "NO. I DO NOT WANT ANY IV'S OR LINES AT ALL." PT ALSO, REFUSES TO TAKE ORDERED MINERAL OIL P.O. STATING IT WILL MAKE HER VOMIT. REPORTED TO MIRELLA AUSTIN. CALLING SURGEON NOW FOR ADVISEMENT.
[2020-07-24] MEDS ORDERED: PACERONE100 MG PO (06:25)
[2020-07-24] MEDS ORDERED: VOLTAREN100 GM TOPICAL (06:28)
[2020-07-24] MEDS ORDERED: GABAPENTIN100 MG PO (06:32)
[2020-07-24] MEDS ORDERED: ONDANSETRON HCL8 MG PO (06:34)
[2020-07-24] MEDS ORDERED: PROTONIX40 MG PO (06:35)
[2020-07-24] MEDS ORDERED: POTASSIUM CHLO10 ME1 PO (06:36)
[2020-07-24] MEDS ORDERED: RESTORIL15 MG PO (06:37)
[2020-07-24] MEDS ORDERED: TRAZODONE HCL150 MG PO (06:38)
[2020-07-24] MEDS ORDERED: HYDROCODON-ACE1 EA10 PO (06:40)
[2020-07-24] MEDS ORDERED: ATIVAN0.5 MG PO (06:41)
[2020-07-24] MEDS ORDERED: PROCHLORPERAZ5 MG/M1 IM (06:44)
[2020-07-24] MEDS ORDERED: ZOFRAN4 MG PO (06:45)
[2020-07-24] MEDS ORDERED: GAS-X180 MG PO (06:48)
[2020-07-24] MEDS ORDERED: TRUSOPT 2 % OPT10 ML LEFT EYE (06:50)
--- NOTE | 2020-07-24 07:04 | NUR ---
DR. HAJI SPEAKING WITH PT NOW. OK TO GIVE MINERAL OIL PER PEG TUBE AND CLAMP FOR A COUPLE OF HOURS THEN RESUME DRAIN TO GRAVITY. OK TO START PT ON CLEAR LIQUIDS AND TRY IV AGAIN LATER.
[2020-07-24 07:07] LABS: BASOPHILS 0.4 % (0-2); EOSINOPHILS 2.5 % (0-7); HEMATOCRIT 36.7 % (36.0-48.0); HEMOGLOBIN 11.7 g/dL (12-16); LYMPHOCYTES 15.3 % (15-50); MCH 30.4 pg (26.0-34.0); MCHC 31.9 g/dL (31.0-37.0); MCV 95.4 fL (80.0-100.0); MEAN PLATELET VOLUME 6.6 fL (7.4-10.4); NEUTROPHILS 75.8 % (40-80); PLATELET COUNT 311 10x3/uL (130-400); RBC 3.85 10x6/uL (4.00-5.40); WBC 6.7 10x3/uL (4.8-10.8)
[2020-07-24 07:26] LABS: ALKALINE PHOSPHATASE 91 U/L (30-120); BILIRUBIN - TOTAL 0.64 mg/dL (0.2-1.3); CALCIUM 8.2 mg/dL (8.5-10.1); CARBON DIOXIDE 24.7 mmol/L (21.0-32.0); CHLORIDE - SERUM 104 mmol/L (98-107); CREATININE - SERUM 0.4 mg/dL (0.6-1.3); SODIUM 138 mmol/L (136-145); UREA NITROGEN 9 mg/dL (7-18); eGFR NON AFRICAN AMERICAN > 90 mL/min (90-120)
[2020-07-24 07:27] LABS: ALBUMIN 2.1 g/dL (3.4-5.0); ALT (SGPT) 18 U/L (10-68); CALC OSMOLALITY 272 mosm/kg (275-300); GLUCOSE 67 mg/dL (74-106); MAGNESIUM - SERUM 1.1 mg/dL (1.8-2.4); POTASSIUM - SERUM 3.5 mmol/L (3.5-5.1); PROTEIN - SERUM 5.3 g/dL (6.4-8.2)
--- NOTE | 2020-07-24 09:57 | NUR ---
PT DOES NOT HAVE IV ACCESS AND REFUSES ANY MORE ATTEMPTS TO GAIN ACCESS, MINERAL OIL AND BP MEDS GIVEN THROUGH PEG, PEG CLAMPED AT 1000
[2020-07-24 12:50] VITALS: BP 185/79
[2020-07-24 13:12] VITALS: Ht 157.5 cm; Wt 54.4 kg
[2020-07-24 18:13] VITALS: BP 164/81
--- NOTE | 2020-07-24 19:30 | NUR ---
BEDSIDE REPORT RECEIVED. A&O X 4, SUPINE IN BED, AT BEDSIDE. PT REFUSING IV. INFORMED ON IMPORTANCE OF HAVING EMERGENCY IV ACCESS. PT STILL REFUSING. RN NOTIFIED DR RAISSA MD DCd IV ABX. CPOC.
--- NOTE | 2020-07-24 19:52 | NUR ---
DR RAISSA LALA, VERBAL ORDER GIVEN TO DC PT IV ANTIBIOTICS, STATES THEY WERE FOR PROPHYLAXIS AND THAT SHE NO LONGER NEEDS THEM
[2020-07-24 20:00] VITALS: BP 167/75
[2020-07-25] VITALS: BP 149/73
--- NOTE | 2020-07-25 02:52 | NUR ---
I have reviewed this patient and I concur with the Shift Assessment completed by the Licensed Practical Nurse today this shift.
[2020-07-25 04:00] VITALS: BP 116/62
[2020-07-25 05:03] LABS: BASOPHILS 0.5 % (0-2); EOSINOPHILS 4.4 % (0-7); HEMATOCRIT 32.1 % (36.0-48.0); HEMOGLOBIN 10.4 g/dL (12-16); LYMPHOCYTES 26.4 % (15-50); MCH 30.8 pg (26.0-34.0); MCHC 32.5 g/dL (31.0-37.0); MEAN PLATELET VOLUME 6.7 fL (7.4-10.4); MONOCYTES 7.6 % (2-11); NEUTROPHILS 61.1 % (40-80); PLATELET COUNT 280 10x3/uL (130-400); RBC 3.38 10x6/uL (4.00-5.40); RDW 19.8 % (11.5-14.5); WBC 5.6 10x3/uL (4.8-10.8)
[2020-07-25 05:32] LABS: ALBUMIN 1.7 g/dL (3.4-5.0); ALKALINE PHOSPHATASE 78 U/L (30-120); ALT (SGPT) 16 U/L (10-68); BILIRUBIN - TOTAL 0.49 mg/dL (0.2-1.3); CALC OSMOLALITY 271 mosm/kg (275-300); CALCIUM 7.7 mg/dL (8.5-10.1); CARBON DIOXIDE 27.2 mmol/L (21.0-32.0); CHLORIDE - SERUM 106 mmol/L (98-107); CREATININE - SERUM 0.3 mg/dL (0.6-1.3); GLUCOSE 75 mg/dL (74-106); POTASSIUM - SERUM 3.2 mmol/L (3.5-5.1); PROTEIN - SERUM 4.5 g/dL (6.4-8.2); SODIUM 138 mmol/L (136-145); eGFR NON AFRICAN AMERICAN > 90 mL/min (90-120)
[2020-07-25 05:36] LABS: UREA NITROGEN 5 mg/dL (7-18)
--- NOTE | 2020-07-25 05:55 | NUR ---
PT REFUSING AM MEDS. STATES SHE DOESN'T WANT TO DO IT ANYMORE. INFORMED PT SHE HAS ELECTROLYTE REPLACEMENT MEDS WELL. REFUSING THOSE WELL. COLOSTOMY RACHEL, HYACINTH.
--- NOTE | 2020-07-25 08:13 | EC ---
PATIENT:AWA ANTONIO DATE OF SERVICE: 07/23/20 SEX: F MEDICAL RECORD: [id number] DATE OF : 45 LOCATION:[facility] AGE OF PATIENT: 75 ADMISSION DATE: 07/24/20 REFERRING PHYSICIAN: INTERPRETING PHYSICIAN: THUAN GUTIERREZ MD ECHOCARDIOGRAM REPORT ECHO CHARGES 5 ECHO LIMITED Date: 07/24/20 CLINICAL DIAGNOSIS: PERICARDIAL EFFUSION ECHOCARDIOGRAPHIC MEASUREMENTS (adult normal given) AC root (d.<3.7cm) 0 cm LV Septum d (<1.2 cm> 0 cm Valve Excursion 0 cm LV Septum (systole) 0 cm Left Atria (s.<4.0cm> 0 cm LVPW d(<1.2cm) 0 cm RV (d.<2.3cm) 0 cm LVPW (sytole) 0 cm LV diastole(<5.6CM) 0 cm MV E-F(>70mm/sec) 0 cm LV systole 0 cm LVOT Diameter 0 cm MV exc.(>10mm) 0 cm Est.ejection fraction (50-75%) % DOPPLER: LVIT cm/sec A 0 cm/sec E 0 cm/sec LA 0 cm/sec RVSP 0 mmHg LVOT 0 cm/sec AOP1/2T 0 m/s Asc. Ao 0 cm/sec RVOT 0 cm/sec RA 0 cm/sec PA 0 cm/sec AV Gradient Peak 0 mmHg AV Mean 0 mmHg AV Area 0 cm MV Gradient Peak 0 mmHg MV Mean 0 mmHg MV Area 0 cm COMMENTS: Piping Engineer: [facility] Shipping Support Clerk: 3 Dr. Prather TAPE# Pericardial Effusion Y DATE OF SERVICE: Somewhat limited study due to the patient's inability to cooperate includes 2D, color flow. Grossly LVH appears present. LV internal dimensions are normal. Wall motion is normal. EF is greater than or equal to 55%. Aortic valve appears tricuspid with adequate valve excursion. Left atrium appears normal. Mitral valve shows no prolapse. Right-sided chambers appear grossly normal. Incidental note is made of a posterior pericardial effusion with no hemodynamic significance. ECHOCARDIOGRAM REPORT [id number] AWA ANTONIO TRANSINT:[id number] Voice Confirmation ID: [id number] DOCUMENT ID: [id number] THUAN GUTIERREZ MD at 0813 CC: [id number] DICTATION DATE: 07/24/20 1113 MANAGER SWITCH: 07/24/20 1205 ADM IN [facility] [address] [id number]
[2020-07-25 08:56] VITALS: BP 164/71
[2020-07-25 12:38] VITALS: BP 132/68
--- NOTE | 2020-07-25 17:23 | NUR ---
CHANGED COLOSTOMY BAG AND CLEANED PT UP, CHANGED DRESSING ON ABD WITH DRY GAUZE AND BATH TAPE, REMOVED ROGERS, TIP INTACT, PLACED NEW ROGERS 16F FILLED WITH 10mL SALINE, PT TOLERATED WELL, CLEAN CATCH SAMPLE OBTAINED, PT STATES SHE IS MUCH MORE COMFORTABLE
[2020-07-25 17:24] VITALS: BP 146/74
[2020-07-25 20:00] VITALS: BP 137/67
[2020-07-26] VITALS: BP 139/67
--- NOTE | 2020-07-26 03:23 | NUR ---
I have reviewed this patient and I concur with the Shift Assessment completed by the Licensed Practical Nurse today this shift.
[2020-07-26 04:00] VITALS: BP 136/70
[2020-07-26 06:13] LABS: BASOPHILS 0.5 % (0-2); EOSINOPHILS 3.1 % (0-7); HEMATOCRIT 33.9 % (36.0-48.0); HEMOGLOBIN 10.9 g/dL (12-16); LYMPHOCYTES 24.9 % (15-50); MCH 30.7 pg (26.0-34.0); MCHC 32.1 g/dL (31.0-37.0); MCV 95.7 fL (80.0-100.0); MEAN PLATELET VOLUME 7.7 fL (7.4-10.4); MONOCYTES 8.6 % (2-11); NEUTROPHILS 62.9 % (40-80); PLATELET COUNT 252 10x3/uL (130-400); RBC 3.54 10x6/uL (4.00-5.40); RDW 19.8 % (11.5-14.5); WBC 6.4 10x3/uL (4.8-10.8)
[2020-07-26 06:45] LABS: ALBUMIN 1.7 g/dL (3.4-5.0); ALKALINE PHOSPHATASE 83 U/L (30-120); ALT (SGPT) 15 U/L (10-68); BILIRUBIN - TOTAL 0.27 mg/dL (0.2-1.3); CALC OSMOLALITY 269 mosm/kg (275-300); CALCIUM 7.6 mg/dL (8.5-10.1); CARBON DIOXIDE 24.6 mmol/L (21.0-32.0); CHLORIDE - SERUM 106 mmol/L (98-107); CREATININE - SERUM 0.5 mg/dL (0.6-1.3); GLUCOSE 68 mg/dL (74-106); MAGNESIUM - SERUM 1.1 mg/dL (1.8-2.4); PROTEIN - SERUM 4.5 g/dL (6.4-8.2); SODIUM 137 mmol/L (136-145); UREA NITROGEN 6 mg/dL (7-18); eGFR NON AFRICAN AMERICAN > 90 mL/min (90-120)
--- NOTE | 2020-07-26 07:36 | NUR ---
RECIEVED BEDSIDE REPORT. BED LOW POSITION, CALL LIGHT IN REACH. IN BED RESTING. WILL CONTINUE TO MONITOR.
[2020-07-26 09:24] VITALS: BP 143/61
[2020-07-26 11:52] VITALS: BP 140/68
[2020-07-26 16:18] VITALS: BP 127/65
--- NOTE | 2020-07-26 16:56 | NUR ---
OT NOTE: PERFORMED SOME OF PTS TX WITH P.T. PT DOING MUCH BETTER TODAY. DISSCUSED RECOMENDATIONS OF SNF/REHAB WITH PT TODAY. PT STATES THAT SHE FEELS BETTER NOW THAT SHE IS SEEING SOME PROGRESS IN HER FUNCTIONAL ABILITIES. CONT TO REQUIRE EXT ASSIST WITH BED MOB AND SUPINE TO SIT, HOWEVER, SITTING BALANCE HAS IMPROVED; PT ABLE TO HOLD HER HEAD UP THROUGH 90% OF TMT WITH ONLY OCCASSIONAL VERBAL CUES. SHE WAS ABLE TO PERFORM UE/LE AROM EXS WITH IMPROVING STRENGTH. (L SHOULDER WITH LONGSTANDING ISSUES AND LIMITED MOVEMENT)..PT SHOWING IMPROVEMENT IN UE ADLS INCLUDING GROOMING, WASHING FACE ANDHANDS, AND FEEDING. PT SHOWING PROGRESS DAILY.. HIGHLY RECOMMEND IP REHAB BECAUSE SHE WOULD BE ABLE TO MAKE MUCH MORE PROGRESS, HOWEVER, UNSURE IF SHE HAS ANY REHAB DAYS LEFT. SAMANTHA MENDENHALL, OTR/L [phone]
[2020-07-26 20:00] VITALS: BP 133/77
[2020-07-27] VITALS: BP 133/77; BP 154/72
--- NOTE | 2020-07-27 04:15 | NUR ---
I have reviewed this patient and I concur with the Shift Assessment completed by the Licensed Practical Nurse today this shift.
[2020-07-27 06:33] LABS: BASOPHILS 0.3 % (0-2); EOSINOPHILS 2.1 % (0-7); HEMATOCRIT 35.7 % (36.0-48.0); HEMOGLOBIN 11.4 g/dL (12-16); LYMPHOCYTES 20.2 % (15-50); MCH 30.4 pg (26.0-34.0); MCHC 31.9 g/dL (31.0-37.0); MCV 95.5 fL (80.0-100.0); MEAN PLATELET VOLUME 7.5 fL (7.4-10.4); MONOCYTES 8.2 % (2-11); NEUTROPHILS 69.2 % (40-80); PLATELET COUNT 246 10x3/uL (130-400); RBC 3.74 10x6/uL (4.00-5.40); RDW 19.9 % (11.5-14.5); WBC 6.7 10x3/uL (4.8-10.8)
[2020-07-27 07:05] LABS: ALBUMIN 1.7 g/dL (3.4-5.0); ALKALINE PHOSPHATASE 87 U/L (30-120); ALT (SGPT) 15 U/L (10-68); BILIRUBIN - TOTAL 0.33 mg/dL (0.2-1.3); CALC OSMOLALITY 271 mosm/kg (275-300); CALCIUM 7.6 mg/dL (8.5-10.1); CARBON DIOXIDE 22.7 mmol/L (21.0-32.0); CHLORIDE - SERUM 105 mmol/L (98-107); CREATININE - SERUM 0.4 mg/dL (0.6-1.3); MAGNESIUM - SERUM 1.2 mg/dL (1.8-2.4); POTASSIUM - SERUM 4.1 mmol/L (3.5-5.1); PROTEIN - SERUM 4.6 g/dL (6.4-8.2); SODIUM 138 mmol/L (136-145); UREA NITROGEN 6 mg/dL (7-18); eGFR NON AFRICAN AMERICAN > 90 mL/min (90-120)
[2020-07-27 07:08] LABS: GLUCOSE 70 mg/dL (74-106)
--- NOTE | 2020-07-27 07:45 | NUR ---
RECIEVED BEDSIDE REPORT. BED LOW POSITION, CALL LIGHT IN REACH. AROUSES TO VOICE, DENIES NEEDS AT THIS TIME. FREE FROM SIGNS OF DISTRESS. WILL CONITNUE TO MONITOR.
[2020-07-27 08:43] VITALS: BP 140/81
[2020-07-27 13:01] VITALS: BP 139/73
--- NOTE | 2020-07-27 14:40 | NUR ---
Nutrition follow-up: Pt receiving a regular diet with poor po intake at this time Wt: 119# Labs reviewed Colostomy To rehab soon. Due to continued poor po intake recommend adding an appetite stimulant RDN will order Ensure with meals. RDN will follow-up on pts progress toward nutrition goals in 3-4 days.
--- NOTE | 2020-07-27 17:15 | NUR ---
OT NOTE: (AM) PT COMPLETED BED MOB WITH MAX A. PT COMPLETED SUPINE TO SIT AT EOB WITH MAX A. PT COMPLETED STATIC SITTING WITH CGA-SBA. PT COMPLETED HAIR GROOMING WITH SETUP. PT COMPLETED FACE HYGIENE WITH SETUP. PT COMPLETED FAUSTO/DOFF SOCKS WITH TOTAL A. CL IN REACH..ALARM ON. (PM) PT COMPLETED BUE AROM EXS TOLERATED. [id number] THANK YOU,PERICO WILKINS
[2020-07-27 17:34] VITALS: BP 102/56; BP 153/77
--- NOTE | 2020-07-27 19:30 | NUR ---
PATIENT ON CL STATES THAT SHE IS SCARED EVERYTHING IS SO NEW AND UNSURE ON HOW TO HANDLE THINGS, SPOKE TO PATIENT FOR A WHILE AND EXPLAINED HER FEELINGS ARE NORMAL AND IF SHE DID NOT ASK QUESTIONS SHE WILL NOT BE ABLE TO UNDERSTAND WHAT SHE NEEDS TO, PATIENT REQUESTS PAIN MEDICATION, EXPLAINED SHE WAS JUST ADMINISTERED ALL PRNS AVAILABLE AT THIS TIME. PATIENT INQUIRED ON WHY FECES IN COLOSTOMY IS GREEN AND BRIGHT GREEN AT THAT, WENT OVER POSSIBILITY OF WHAT SHE ATE OR POSSIBLY BILE OR MEDICATIONS WELL. NO OTHER NEEDS VOICED AT THIS TIME. CONTINUE WITH PLAN OF CARE
[2020-07-27 20:00] VITALS: BP 158/74
--- NOTE | 2020-07-28 01:21 | NUR ---
PATIENT ON CL WANTING TO CALL HER STATES SHE TALKS TO HIM EVERY NIGHT AND IF SHE DOES NOT CALL HIM HE WILL NOT BE ABLE TO SLEEP, TOLD PATIENT THAT IT IS PAST 1AM AND I AM SURE HE IS ASLEP BUT WE CAN CALL HIM FIRST THING THIS MORNING, PATIENT CAN HARDLY KEEP EYES OPEN BUT CONTINUES TO FIGHT SLEEP, CONTINUE WITH PLAN OF CARE
[2020-07-28 04:00] VITALS: BP 96/51
--- NOTE | 2020-07-28 04:54 | NUR ---
I have reviewed this patient and I concur with the Shift Assessment completed by the Licensed Practical Nurse today this shift.
--- NOTE | 2020-07-28 07:49 | NUR ---
RESTING IN BED WITH EYES CLOSED, EASILY AROUSED TO SPEECH. ALERT BUT CONFUSED AT THIS TIME. NO IV PRESENT. ROGERS, COLOSOTOMY, AND PEG TUBE PRESENT. NO CURRENT S/S OF DISTRESS, DENIES CURRENT NEEDS, WILL CONT TO MONITOR.
[2020-07-28 08:56] VITALS: BP 130/75
[2020-07-28 09:50] LABS: BASOPHILS 0.4 % (0-2); EOSINOPHILS 1.1 % (0-7); HEMATOCRIT 35.9 % (36.0-48.0); HEMOGLOBIN 11.5 g/dL (12-16); LYMPHOCYTES 25.9 % (15-50); MCH 30.5 pg (26.0-34.0); MCHC 31.9 g/dL (31.0-37.0); MCV 95.6 fL (80.0-100.0); MEAN PLATELET VOLUME 7.3 fL (7.4-10.4); MONOCYTES 9.8 % (2-11); NEUTROPHILS 62.8 % (40-80); RBC 3.76 10x6/uL (4.00-5.40); RDW 19.5 % (11.5-14.5); WBC 5.6 10x3/uL (4.8-10.8)
[2020-07-28 09:52] LABS: PLATELET COUNT 184 10x3/uL (130-400)
--- NOTE | 2020-07-28 10:00 | NUR ---
EMPTIED 200ML OF LOOSE STOOL OUT OF COLOSTOMY.
[2020-07-28 10:02] LABS: ALBUMIN 1.7 g/dL (3.4-5.0); ALKALINE PHOSPHATASE 88 U/L (30-120); ALT (SGPT) 12 U/L (10-68); BILIRUBIN - TOTAL 0.39 mg/dL (0.2-1.3); CALC OSMOLALITY 269 mosm/kg (275-300); CALCIUM 7.8 mg/dL (8.5-10.1); CARBON DIOXIDE 25.3 mmol/L (21.0-32.0); CHLORIDE - SERUM 104 mmol/L (98-107); CREATININE - SERUM 0.5 mg/dL (0.6-1.3); GLUCOSE 99 mg/dL (74-106); MAGNESIUM - SERUM 1.4 mg/dL (1.8-2.4); PROTEIN - SERUM 4.6 g/dL (6.4-8.2); SODIUM 136 mmol/L (136-145); UREA NITROGEN 7 mg/dL (7-18); eGFR NON AFRICAN AMERICAN > 90 mL/min (90-120)
[2020-07-28 12:46] VITALS: BP 111/51
--- NOTE | 2020-07-28 12:57 | NUR ---
EMPTIED 100ML OF LOOSE STOOL FROM COLOSTOMY, 400ML OF URINE OUT OF CATHETER.
--- NOTE | 2020-07-28 17:11 | NUR ---
OT NOTE: (AM) PT COMPLETED SUPINE TO SIT WITH MAX A. PT COMPLETED SITTING AT EOB WITH MIN A. PT COMPLETED FACE HYGIENE WITH MIN A. PT COMPLETED HAIR GROOMING WITH MIN A. PT DECLINED TO STAND OR SIT UP IN CHAIR. (PM) PT COMPLETED SUPINE TO SIT WITH MAX A. PT COMPLETED EOB SITTING WITH MIN A. PT ATTEMPTED SIT TO STAND WITH TOTAL A. [phone] THANK YOU,PERICO WILKINS
[2020-07-28 17:27] VITALS: BP 117/60
--- NOTE | 2020-07-28 17:39 | NUR ---
PRN NORCO FOR ABDOMINAL PAIN. SITTING UPRIGHT IN BED. VISITOR AT BEDSIDE. DENIES ANY NEEDS AT THIS TIME.
[2020-07-28 20:00] VITALS: BP 132/72
--- NOTE | 2020-07-28 23:00 | NUR ---
CLEANED ABDOMINAL WOUND AND PACKED WITH DRY 4X4. PT C/O SMALL SPOT NEAR TOP OF INCISION THAT APPEARS TO BE FLUID FILLED. WILL PASS IN REPORT FOR PHYSICIAN TO LOOK AT. PUT SCD'S ON PT. ASSESSMENT COMPLETE PER FLOW-SHEET. WILL CONTINUE TO MONITOR.
[2020-07-29 07:02] LABS: BASOPHILS 0.4 % (0-2); EOSINOPHILS 0.4 % (0-7); HEMATOCRIT 38.4 % (36.0-48.0); HEMOGLOBIN 12.3 g/dL (12-16); LYMPHOCYTES 26.1 % (15-50); MCH 30.3 pg (26.0-34.0); MCHC 31.9 g/dL (31.0-37.0); MCV 94.9 fL (80.0-100.0); MEAN PLATELET VOLUME 7.4 fL (7.4-10.4); MONOCYTES 8.5 % (2-11); NEUTROPHILS 64.6 % (40-80); PLATELET COUNT 210 10x3/uL (130-400); RBC 4.04 10x6/uL (4.00-5.40); RDW 19.8 % (11.5-14.5); WBC 5.9 10x3/uL (4.8-10.8)
[2020-07-29 07:19] LABS: ALKALINE PHOSPHATASE 113 U/L (30-120); BILIRUBIN - TOTAL 0.32 mg/dL (0.2-1.3); CALC OSMOLALITY 269 mosm/kg (275-300); CALCIUM 7.9 mg/dL (8.5-10.1); CARBON DIOXIDE 27.1 mmol/L (21.0-32.0); CHLORIDE - SERUM 104 mmol/L (98-107); CREATININE - SERUM 0.5 mg/dL (0.6-1.3); GLUCOSE 71 mg/dL (74-106); POTASSIUM - SERUM 4.5 mmol/L (3.5-5.1); PROTEIN - SERUM 5.2 g/dL (6.4-8.2); SODIUM 137 mmol/L (136-145); UREA NITROGEN 7 mg/dL (7-18); eGFR NON AFRICAN AMERICAN > 90 mL/min (90-120)
[2020-07-29 07:20] LABS: ALT (SGPT) 18 U/L (10-68)
--- NOTE | 2020-07-29 07:30 | NUR ---
REC'D IN BED AWAKE AND ALERT. RSP EVEN AND UNLABORED WITH NO DISTRESS NOTED. CAN EXPRESS NEEDS AND WANTS. NO C/O NOTED OR VOICED. ASSESSMENT COMPLETED. C/L IN REACH AT BEDSIDE.
[2020-07-29 09:19] VITALS: BP 151/62
--- NOTE | 2020-07-29 11:15 | NUR ---
I have reviewed this patient and I concur with the Shift Assessment completed by the Licensed Practical Nurse today this shift.
[2020-07-29 12:51] VITALS: BP 163/76
--- NOTE | 2020-07-29 13:05 | NUR ---
CALLED WAS PLACED TO TABLE ATTENDANT WHICH WAS DR. GARCIA ABOUT PT HAVING A PUS FILLED PIMPLE NOTED TO TOP OF HER INCISION ON HER ABD. REC'D ORDERS FOR WOUND CULTURE AT THIS TIME. WOUND CULTURE WAS COLLECTED AND SENT TO LAB.
[2020-07-29 16:13] VITALS: BP 153/74
[2020-07-30 04:00] VITALS: BP 144/75
[2020-07-30 05:19] LABS: BASOPHILS 0.2 % (0-2); EOSINOPHILS 0.4 % (0-7); HEMATOCRIT 38.5 % (36.0-48.0); HEMOGLOBIN 11.7 g/dL (12-16); IMMATURE GRANULOCYTES 0.2 % (0-5); LYMPHOCYTE ABS# 1.46 10x3/uL (1.18-3.74); LYMPHOCYTES 26.5 % (15-50); MCH 29.8 pg (26.0-34.0); MCHC 30.4 g/dL (31.0-37.0); MEAN PLATELET VOLUME 9.4 fL (7.4-10.4); MONOCYTES 9.3 % (2-11); NEUTROPHIL ABS# 3.49 10x3/uL (1.56-6.13); NEUTROPHILS 63.4 % (40-80); PLATELET COUNT 230 10x3/uL (130-400); RBC 3.93 10x6/uL (4.00-5.40); RDW 17.8 % (11.5-14.5); WBC 5.5 10x3/uL (4.8-10.8)
[2020-07-30 05:47] LABS: ALBUMIN 1.8 g/dL (3.4-5.0); ALKALINE PHOSPHATASE 110 U/L (30-120); ALT (SGPT) 14 U/L (10-68); BILIRUBIN - TOTAL 0.35 mg/dL (0.2-1.3); CALC OSMOLALITY 271 mosm/kg (275-300); CALCIUM 8.2 mg/dL (8.5-10.1); CARBON DIOXIDE 26.6 mmol/L (21.0-32.0); CHLORIDE - SERUM 104 mmol/L (98-107); CREATININE - SERUM 0.6 mg/dL (0.6-1.3); GLUCOSE 84 mg/dL (74-106); POTASSIUM - SERUM 4.5 mmol/L (3.5-5.1); SODIUM 137 mmol/L (136-145); UREA NITROGEN 10 mg/dL (7-18); eGFR NON AFRICAN AMERICAN > 90 mL/min (90-120)
[2020-07-30 08:12] VITALS: BP 132/68
[2020-07-30 12:43] VITALS: BP 122/65
--- NOTE | 2020-07-30 13:36 | NUR ---
PT COLOSTOMY CHANGED DUE TO LEAKING. PT CLEANED UP, CLEAN DRAW SHEET AND PADS PLACED UNDER PT, SKIN PREP AND COLOSTOMY PASTE USED FOR SECUREMENT, OSTOMY GERRY PINK AND MOIST, PT TOLERATED WELL, COMPLAINS OF PERSISTENT NAUSEA AND PAIN, STATES SHE IS HAVING STOMACH CRAMPS.
[2020-07-30 18:02] VITALS: BP 139/63
[2020-07-30] MEDS ORDERED: AMBIEN10 MG PO (21:08)
[2020-07-30 21:29] VITALS: BP 151/74
[2020-07-31 05:09] VITALS: BP 132/72
[2020-07-31 07:09] LABS: BASOPHILS 0.2 % (0-2); EOSINOPHILS 0.1 % (0-7); HEMATOCRIT 32.5 % (36.0-48.0); HEMOGLOBIN 10.6 g/dL (12-16); LYMPHOCYTES 26.6 % (15-50); MCH 31.3 pg (26.0-34.0); MCHC 32.7 g/dL (31.0-37.0); MEAN PLATELET VOLUME 7.8 fL (7.4-10.4); MONOCYTES 9.4 % (2-11); NEUTROPHILS 63.7 % (40-80); PLATELET COUNT 217 10x3/uL (130-400); RDW 19.8 % (11.5-14.5); WBC 4.7 10x3/uL (4.8-10.8)
[2020-07-31 07:12] LABS: ALBUMIN 1.5 g/dL (3.4-5.0); ALKALINE PHOSPHATASE 89 U/L (30-120); ALT (SGPT) 12 U/L (10-68); BILIRUBIN - TOTAL 0.28 mg/dL (0.2-1.3); CALC OSMOLALITY 277 mosm/kg (275-300); CALCIUM 7.7 mg/dL (8.5-10.1); CARBON DIOXIDE 27.2 mmol/L (21.0-32.0); CHLORIDE - SERUM 108 mmol/L (98-107); CREATININE - SERUM 0.7 mg/dL (0.6-1.3); GLUCOSE 64 mg/dL (74-106); POTASSIUM - SERUM 4.7 mmol/L (3.5-5.1); PROTEIN - SERUM 4.3 g/dL (6.4-8.2); SODIUM 140 mmol/L (136-145); UREA NITROGEN 14 mg/dL (7-18); eGFR NON AFRICAN AMERICAN 86 mL/min (90-120)
[2020-07-31 07:26] LABS: MCV 95.7 fL (80.0-100.0)
[2020-07-31 08:23] VITALS: BP 164/70
[2020-07-31 13:14] VITALS: BP 127/67
--- NOTE | 2020-07-31 13:34 | NUR ---
Nutrition reassessment: Pt sleeping at time of RDN visit. Did now wake up to eat breakfast. Diet order Regular PO intake ~25-50% of some meals Labs reviewed Wt: 120# - no new wt from admit Colostomy; working. Estimated nutrition needs, Nutrition diagnosis, nutrition goals remain the same as initial assessment from 07/25/20. Recommend getting a current wt on pt. Pt may also benefit from an appetite stimulant due to continued poor po intake. RDN will order Ensure with meals to increase kcal, protein intake RDN will follow-up on pts progress toward nutrition goals in 3-5 days.
--- NOTE | 2020-07-31 14:29 | MORECARE ---
CASE MANAGEMENT DISCHARGE SUMMARY PATIENT: AWA ANTONIO UNIT: [id number] ADM DATE: 07/24/20 AGE: 75 : 45 SEX: F ROOM/BED: D.2210 AUTHOR: AISHA RODRIGUEZ PHYSICIAN: REFERRING PHYSICIAN: ODETTE DIEGO MD DATE OF SERVICE: 07/31/20 Case Management Discharge Planning Summary DCP REVIEW SUMMARY ANTICIPATED D/C DATE: EXPECTED LOS : CASE STATUS: DCP Initiated INITIAL REVIEW: 07/23/2020 INITIAL REVIEWER: Kimi Varela FINAL DISCHARGE DISPOSITION: : FINAL REVIEWER: FINAL REVIEW DATE: DCP Focus Questions & Answers QUESTION: ANSWER : PATIENT: AWA ANTONIO ENCOUNTER: [id number] MEDICAL RECORD#: [id number] ADMISSION DATE: 07/24/2020 DISCHARGE DATE: ATTENDING MD: CARLTON HEARN : AGE: 75 MARITAL STATUS: M DC PLAN ID: [id number] FACILITY: [facility] PRINTED ON: 07/31/20 14:28 CT All edits/amendments must be made on the electronic document DICTATION DATE: 07/31/201427 ACCOUNTS CLERK: DM 07/31/20 142 RPT#: [id number] DC DATE: STATUS: ADM IN [facility] [address] [place] [address] END OF REPORT
--- NOTE | 2020-07-31 14:42 | MORECARE ---
CASE MANAGEMENT DISCHARGE SUMMARY PATIENT: AWA ANTONIO UNIT: [id number] ADM DATE: 07/24/20 AGE: 75 : 45 SEX: F ROOM/BED: D.2210 AUTHOR: JENNIFER,DOC PHYSICIAN: REFERRING PHYSICIAN: ODETTE DIEGO MD DATE OF SERVICE: 07/31/20 Case Management Discharge Planning Summary COMMENTS ENTERED DATE: 07/31/20 14:28 CT COMMENT TYPE: Discharge Planning REVIEWER: Kimi Varela Patient needs rehab [facility] and our inpatient rehab declined the patient, I spoke with her about her skilled options and she stated that her first choice is [facility] and her second choice is [facility] I called [facility] and they do not have and bed availability. I also reached out to [facility] and they are also full. I got a GRECIA and an IMM signed. I will have to reach out to her again for her 3rd choice. CM to follow and assist DCP REVIEW SUMMARY ANTICIPATED D/C DATE: EXPECTED LOS : CASE STATUS: DCP Initiated INITIAL REVIEW: 07/23/2020 INITIAL REVIEWER: Kimi Varela FINAL DISCHARGE DISPOSITION: : FINAL REVIEWER: FINAL REVIEW DATE: DCP Focus Questions & Answers QUESTION: ANSWER : PATIENT: AWA ANTONIO ENCOUNTER: [id number] MEDICAL RECORD#: [id number] ADMISSION DATE: 07/24/2020 DISCHARGE DATE: ATTENDING MD: CARLTON HEARN : AGE: 75 MARITAL STATUS: M DC PLAN ID: [id number] FACILITY: [facility] PRINTED ON: 07/31/20 14:42 CT All edits/amendments must be made on the electronic document DICTATION DATE: 07/31/201441 NURSE ORTHOPAEDIC: DM 07/31/201441 RPT#: [id number] DC DATE: STATUS: ADM IN [facility] [address] [place] [address] END OF REPORT
--- NOTE | 2020-07-31 15:37 | NUR ---
OT NOTE: PERFORMED PART OF PTS TMT WITH PHYS THERAPY. PT SLIGHTLY MORE AGITATED AND FRUSTRATED TODAY. EDUCATED AGAIN ON HOW TO PERFORM BED MOB INCLUDING ROLLING SIDE TO SIDE BUT USING ARMS AND LEGS TO ASSIST (LOG ROLLING); SUPINE TO SIT WITH MOD ASSIST; EOB SITTING WITH SPV BUT FREQ CUES TO KEEP HER HEAD UP. PRACTICED 4 SIT TO STAND ACT WITH MAX ASSIST X 2.. PT REMAINS VERY WEAK AND REQUIRED CONSTANT CUES FOR POSITIONING. ATTEMPTED USING WALKER FOR UE SUPPORT, HOWEVER, PT WITH MINIMAL UE STRENGTH TO PUSH HER UP TO UPRIGHT STANDING. BACK TO BED WITH MAX ASSIST X 2; ROLLING IN BED AND LINEN CHANGE WITH MAX ASSIST. ASSISTED PT WITH SET UP OF LUNCH TRAY. PT INITIALLY NOT WANTING TO EAT BECUASE SHE JUST FINISHED BREAKFAST, BUT SHE WAS ABLE TO HOLD UTENSILS AND FEED SELF WITH SET UP. SAMANTHA THORNTON, OTR/L [phone]
[2020-07-31 17:04] VITALS: BP 133/63
[2020-07-31 20:00] VITALS: BP 154/72
--- NOTE | 2020-08-01 02:00 | NUR ---
I have reviewed this patient and I concur with the Shift Assessment completed by the Licensed Practical Nurse today this shift.
[2020-08-01 05:56] LABS: BASOPHILS 0.3 % (0-2); EOSINOPHILS 0.4 % (0-7); HEMATOCRIT 35.5 % (36.0-48.0); HEMOGLOBIN 11.5 g/dL (12-16); LYMPHOCYTES 23.2 % (15-50); MCH 30.5 pg (26.0-34.0); MCHC 32.3 g/dL (31.0-37.0); MCV 94.2 fL (80.0-100.0); MEAN PLATELET VOLUME 7.2 fL (7.4-10.4); MONOCYTES 9.3 % (2-11); NEUTROPHILS 66.8 % (40-80); PLATELET COUNT 256 10x3/uL (130-400); RBC 3.77 10x6/uL (4.00-5.40); RDW 18.8 % (11.5-14.5); WBC 5.3 10x3/uL (4.8-10.8)
[2020-08-01 06:42] LABS: ALBUMIN 1.7 g/dL (3.4-5.0); ALKALINE PHOSPHATASE 104 U/L (30-120); ALT (SGPT) 10 U/L (10-68); BILIRUBIN - TOTAL 0.32 mg/dL (0.2-1.3); CALC OSMOLALITY 273 mosm/kg (275-300); CALCIUM 8.1 mg/dL (8.5-10.1); CHLORIDE - SERUM 106 mmol/L (98-107); CREATININE - SERUM 0.7 mg/dL (0.6-1.3); GLUCOSE 90 mg/dL (74-106); MAGNESIUM - SERUM 1.9 mg/dL (1.8-2.4); SODIUM 136 mmol/L (136-145); UREA NITROGEN 17 mg/dL (7-18); eGFR NON AFRICAN AMERICAN 86 mL/min (90-120)
[2020-08-01 06:43] LABS: POTASSIUM - SERUM 5.6 mmol/L (3.5-5.1)
--- NOTE | 2020-08-01 08:59 | NUR ---
DR HAJI AT DESK STATING PATIENT DRSG TO ABD IS DATED 07/28/20 AND THAT DRSG SHOULD BE BEING CHANGED EVERY DAY. NO DRSG CHANGE ORDERS IN. CLARIFIED ORDERS WITH DR HAJI AND WILL PLACE ORDER.
[2020-08-01 09:06] VITALS: BP 138/63
--- NOTE | 2020-08-01 09:40 | NUR ---
ALERT AND ORIENTED. ASSESSMENT COMPLETE. 500CC EMPTIED FROM OSTOMY BAG. DRSG TO ABD CHANGED BY DR HAJI. PATIENT SET UP TO EAT BREAKFAST. DENIES FURTHER NEEDS. BED LOW. CALL QUIROS AND PERSONAL ITEMS IN REACH. WILL CONTINUE TO MONITOR.
--- NOTE | 2020-08-01 10:25 | MORECARE ---
CASE MANAGEMENT DISCHARGE SUMMARY PATIENT: AWA ANTONIO UNIT: [id number] ADM DATE: 07/24/20 AGE: 75 : 45 SEX: F ROOM/BED: D.2210 AUTHOR: AISHA RODRIGUEZ PHYSICIAN: REFERRING PHYSICIAN: ODETTE DIEGO MD DATE OF SERVICE: 08/01/20 Case Management Discharge Planning Summary COMMENTS ENTERED DATE: 08/01/20 10:22 CT COMMENT TYPE: Discharge Planning REVIEWER: Kimi Varela attempted to call patient's spouse to get a 3rd choice for skilled I did not get an answer will try again at a later time ENTERED DATE: 07/31/20 14:28 CT COMMENT TYPE: Discharge Planning REVIEWER: Kimi Nichole Patient needs rehab [facility] and our inpatient rehab declined the patient, I spoke with her about her skilled options and she stated that her first choice is [facility] and her second choice is [facility] I called [facility] and they do not have and bed availability. I also reached out to [facility] and they are also full. I got a GRECIA and an IMM signed. I will have to reach out to her again for her 3rd choice. CM to follow and assist DCP REVIEW SUMMARY ANTICIPATED D/C DATE: EXPECTED LOS : CASE STATUS: DCP Initiated INITIAL REVIEW: 07/23/2020 INITIAL REVIEWER: Kimi Varela FINAL DISCHARGE DISPOSITION: : FINAL REVIEWER: FINAL REVIEW DATE: DCP Focus Questions & Answers QUESTION: ANSWER : PATIENT: AWA ANTONIO ENCOUNTER: [id number] MEDICAL RECORD#: [id number] ADMISSION DATE: 07/24/2020 DISCHARGE DATE: ATTENDING MD: CARLTON HEARN : AGE: 75 MARITAL STATUS: M DC PLAN ID: [id number] FACILITY: [facility] PRINTED ON: 08/01/20 10:25 CT All edits/amendments must be made on the electronic document DICTATION DATE: 08/01/20 1025 EXTENSION FORESTER: EILEEN 08/01/20 1025 RPT#: [id number] DC DATE: STATUS: ADM IN [facility] [address] [place] [address] END OF REPORT
[2020-08-01 12:00] VITALS: BP 121/69
--- NOTE | 2020-08-01 12:13 | MORECARE ---
CASE MANAGEMENT DISCHARGE SUMMARY PATIENT: AWA ANTONIO UNIT: [id number] ADM DATE: 07/24/20 AGE: 75 : 45 SEX: F ROOM/BED: D.2210 AUTHOR: JENNIFER,DOC PHYSICIAN: REFERRING PHYSICIAN: ODETTE DIEGO MD DATE OF SERVICE: 08/01/20 Case Management Discharge Planning Summary COMMENTS ENTERED DATE: 08/01/20 12:07 CT COMMENT TYPE: Discharge Planning REVIEWER: Kimi Nichole spoke to patient's and he is going to look at [facility] and [facility] and get back with me I will send a referral to [facility] to get the ball rolling. ENTERED DATE: 08/01/20 10:22 CT COMMENT TYPE: Discharge Planning REVIEWER: Kimi Varela attempted to call patient's spouse to get a 3rd choice for skilled I did not get an answer will try again at a later time ENTERED DATE: 07/31/20 14:28 CT COMMENT TYPE: Discharge Planning REVIEWER: Kimi Varela Patient needs rehab [facility] and our inpatient rehab declined the patient, I spoke with her about her skilled options and she stated that her first choice is [facility] and her second choice is [facility] I called [facility] and they do not have and bed availability. I also reached out to [facility] and they are also full. I got a GRECIA and an IMM signed. I will have to reach out to her again for her 3rd choice. CM to follow and assist DCP REVIEW SUMMARY ANTICIPATED D/C DATE: EXPECTED LOS : CASE STATUS: DCP Initiated INITIAL REVIEW: 07/23/2020 INITIAL REVIEWER: Kimi Varela FINAL DISCHARGE DISPOSITION: : FINAL REVIEWER: FINAL REVIEW DATE: DCP Focus Questions & Answers QUESTION: ANSWER : PATIENT: AWA ANTONIO ENCOUNTER: [id number] MEDICAL RECORD#: [id number] ADMISSION DATE: 07/24/2020 DISCHARGE DATE: ATTENDING MD: CARLTON HEARN : AGE: 75 MARITAL STATUS: M DC PLAN ID: [id number] FACILITY: [facility] PRINTED ON: 08/01/20 12:13 CT All edits/amendments must be made on the electronic document DICTATION DATE: 08/01/201212 CHAIR POST MACHINE OPERATOR: EILEEN 08/01/201212 RPT#: [id number] DC DATE: STATUS: ADM IN [facility] [address] [place] [address] END OF REPORT
--- NOTE | 2020-08-01 12:47 | MORECARE ---
CASE MANAGEMENT DISCHARGE SUMMARY PATIENT: AWA ANTONIO UNIT: [id number] ADM DATE: 07/24/20 AGE: 75 : 45 SEX: F ROOM/BED: D.2210 AUTHOR: JENNIFER,DOC PHYSICIAN: REFERRING PHYSICIAN: ODETTE DIEGO MD DATE OF SERVICE: 08/01/20 Case Management Discharge Planning Summary COMMENTS ENTERED DATE: 08/01/20 12:07 CT COMMENT TYPE: Discharge Planning REVIEWER: Kimi Nichole spoke to patient's and he is going to look at [facility] and [facility] and get back with me I will send a referral to [facility] to get the ball rolling. ENTERED DATE: 08/01/20 10:22 CT COMMENT TYPE: Discharge Planning REVIEWER: Kimi Varela attempted to call patient's spouse to get a 3rd choice for skilled I did not get an answer will try again at a later time ENTERED DATE: 07/31/20 14:28 CT COMMENT TYPE: Discharge Planning REVIEWER: Kimi Varela Patient needs rehab [facility] and our inpatient rehab declined the patient, I spoke with her about her skilled options and she stated that her first choice is [facility] and her second choice is [facility] I called [facility] and they do not have and bed availability. I also reached out to [facility] and they are also full. I got a GRECIA and an IMM signed. I will have to reach out to her again for her 3rd choice. CM to follow and assist DCP REVIEW SUMMARY ANTICIPATED D/C DATE: EXPECTED LOS : CASE STATUS: DCP Initiated INITIAL REVIEW: 07/23/2020 INITIAL REVIEWER: Kimi Varela FINAL DISCHARGE DISPOSITION: : FINAL REVIEWER: FINAL REVIEW DATE: DCP Focus Questions & Answers QUESTION: ANSWER : PATIENT: AWA ANTONIO ENCOUNTER: [id number] MEDICAL RECORD#: [id number] ADMISSION DATE: 07/24/2020 DISCHARGE DATE: ATTENDING MD: CARLTON HEARN : AGE: 75 MARITAL STATUS: M DC PLAN ID: [id number] FACILITY: [facility] PRINTED ON: 08/01/20 12:46 CT All edits/amendments must be made on the electronic document DICTATION DATE: 08/01/201245 BORING MACHINE OPERATOR HELPER: EILEEN 08/01/20 124 RPT#: [id number] DC DATE: STATUS: ADM IN [facility] [address] [place] [address] END OF REPORT
[2020-08-01 16:54] VITALS: BP 121/59
[2020-08-02] VITALS: BP 150/65
[2020-08-02 04:00] VITALS: BP 121/50
--- NOTE | 2020-08-02 06:01 | NUR ---
I have reviewed this patient and I concur with the Shift Assessment completed by the Licensed Practical Nurse today this shift.
[2020-08-02 06:32] LABS: BASOPHILS 0.3 % (0-2); EOSINOPHILS 0.4 % (0-7); HEMATOCRIT 33.4 % (36.0-48.0); HEMOGLOBIN 10.7 g/dL (12-16); LYMPHOCYTES 25.6 % (15-50); MCHC 32.2 g/dL (31.0-37.0); MEAN PLATELET VOLUME 7.5 fL (7.4-10.4); MONOCYTES 10.5 % (2-11); NEUTROPHILS 63.2 % (40-80); PLATELET COUNT 233 10x3/uL (130-400); RBC 3.46 10x6/uL (4.00-5.40); RDW 18.5 % (11.5-14.5); WBC 4.9 10x3/uL (4.8-10.8)
[2020-08-02 06:38] LABS: ALBUMIN 1.6 g/dL (3.4-5.0); ALKALINE PHOSPHATASE 91 U/L (30-120); ALT (SGPT) 11 U/L (10-68); BILIRUBIN - TOTAL 0.28 mg/dL (0.2-1.3); CALC OSMOLALITY 267 mosm/kg (275-300); CALCIUM 8.3 mg/dL (8.5-10.1); CARBON DIOXIDE 23.5 mmol/L (21.0-32.0); CHLORIDE - SERUM 104 mmol/L (98-107); CREATININE - SERUM 0.7 mg/dL (0.6-1.3); GLUCOSE 69 mg/dL (74-106); MAGNESIUM - SERUM 2.1 mg/dL (1.8-2.4); MCV 96.4 fL (80.0-100.0); POTASSIUM - SERUM 5.8 mmol/L (3.5-5.1); PROTEIN - SERUM 4.7 g/dL (6.4-8.2); SODIUM 134 mmol/L (136-145); UREA NITROGEN 19 mg/dL (7-18); eGFR NON AFRICAN AMERICAN 86 mL/min (90-120)
--- NOTE | 2020-08-02 08:14 | MORECARE ---
CASE MANAGEMENT DISCHARGE SUMMARY PATIENT: AWA ANTONIO UNIT: [id number] ADM DATE: 07/24/20 AGE: 75 : 45 SEX: F ROOM/BED: D.2210 AUTHOR: AISHA RODRIGUEZ PHYSICIAN: REFERRING PHYSICIAN: ODETTE DIEGO MD DATE OF SERVICE: 08/02/20 Case Management Discharge Planning Summary COMMENTS ENTERED DATE: 08/02/20 8:04 CT COMMENT TYPE: Discharge Planning REVIEWER: Kimi Varela RECEIVED A CALL FROM [facility] YESTERDAY EVENING THEY WILL ACCEPT THE PATIENT IF THE PATIENT IS AGREEABLE ENTERED DATE: 08/01/20 12:07 CT COMMENT TYPE: Discharge Planning REVIEWER: Kimi Varela spoke to patient's and he is going to look at [facility] and [facility] and get back with me I will send a referral to [facility] to get the ball rolling. ENTERED DATE: 08/01/20 10:22 CT COMMENT TYPE: Discharge Planning REVIEWER: Kimi Varela attempted to call patient's spouse to get a 3rd choice for skilled I did not get an answer will try again at a later time ENTERED DATE: 07/31/20 14:28 CT COMMENT TYPE: Discharge Planning REVIEWER: Kimi Varela Patient needs rehab [facility] and our inpatient rehab declined the patient, I spoke with her about her skilled options and she stated that her first choice is [facility] and her second choice is [facility] I called [facility] and they do not have and bed availability. I also reached out to [facility] and they are also full. I got a GRECIA and an IMM signed. I will have to reach out to her again for her 3rd choice. CM to follow and assist DCP REVIEW SUMMARY ANTICIPATED D/C DATE: EXPECTED LOS : CASE STATUS: DCP Initiated INITIAL REVIEW: 07/23/2020 INITIAL REVIEWER: Kimi Varela FINAL DISCHARGE DISPOSITION: : FINAL REVIEWER: FINAL REVIEW DATE: DCP Focus Questions & Answers QUESTION: ANSWER : PATIENT: AWA ANTONIO ENCOUNTER: [id number] MEDICAL RECORD#: [id number] ADMISSION DATE: 07/24/2020 DISCHARGE DATE: ATTENDING MD: CARLTON HEARN : AGE: 75 MARITAL STATUS: M DC PLAN ID: [id number] FACILITY: [facility] PRINTED ON: 08/02/20 8:14 CT All edits/amendments must be made on the electronic document DICTATION DATE: 08/02/20813 PUMPER BREWERY: EILEEN 08/02/20813 RPT#: [id number] DC DATE: STATUS: ADM IN [facility] [address] [place] [address] END OF REPORT
[2020-08-02 08:21] VITALS: BP 132/56
--- NOTE | 2020-08-02 09:31 | NUR ---
ALERT AND ORIENTED UPON ENTERING. ADMINISTERED MEDICATION, NO DIFFICULTIES. REQUESTING ATIVAN AND NORCO, WILL GET PROMPTLY. DENIES FURTHER NEEDS AT THIS TIME. BED IN LOWEST POSITION, BED RAILS X2, CALL LIGHT WITHIN REACH. WILL CONTINUE POC. ASSESSMENT PERFORMED
--- NOTE | 2020-08-02 09:43 | NUR ---
ADMINISTERED NORCO AND ATIVAN PER PATIENT REQUEST. DENIES FURTHER NEEDS. WILL CONTINUE POC.
--- NOTE | 2020-08-02 11:27 | NUR ---
ADMINISTERED PRN MYLANTA. RESTING IN BED. DENIES NEEDS AT THIS TIME. WILL CONTINUE POC.
--- NOTE | 2020-08-02 13:09 | NUR ---
OT NOTE: PT VERY FRUSTRATED..FEELS THAT SHES NOT MAKING ANY PROGRESS. LONG TALK WITH PT REGARDING IMPROVEMENT AND THE NEED TO EXERCISE EVEN WHEN THERAPY IS NOT IN THE ROOM. PERFORMED SUPINE TO SIT WITH MAX ASSIST; EOB SITTING WITH MIN ASSIST; CONSTANT CUES FOR HOLDING HEAD UP WHILE IN SITTING POSITION. UE/LE EXS X 10 REPS AND REST BREAKS. PRACTICED EXT BED MOB INCLUDING ROLLING FROM SIDE TO SIDE AND BRIDGING.. INSTRUCTED ON OTHER EXS TO PERFORM IN BED. PT WILL BE SEEN AGAIN IN PM SAMANTHA THORNTON, OTR/L [phone]
[2020-08-02 13:58] VITALS: BP 134/62
--- NOTE | 2020-08-02 14:47 | NUR ---
PRN ZOFRAN FOR NAUSEA. RESTING IN BED. DENIES FURTHER NEEDS AT THIS TIME. WILL CONTINUE POC.
--- NOTE | 2020-08-02 16:20 | NUR ---
OT NOTE: PT REQUIRED MOD A FOR SUPINE TO SIT. PT COMPLETED LB EXERCISES TOELRATED. PT COMPLETED RUE AROM EXS TOLERATED. PT COMPLETED BED MOBILITY AND TRAINING. PT REQUIRED MIN-MOD A FOR SIDE ROLLING. PT COMPLETED BRIDGING TO STRENGTHEN CORE. [phone] JESSE EGAN.[place]
--- NOTE | 2020-08-02 17:02 | NUR ---
PRN SOMA AND NORCO PER REQUEST. RESTING COMFORTABLY IN BED. DENIES ANY NEEDS AT THIS TIME. WILL CONTINUE POC.
[2020-08-02 17:03] VITALS: BP 134/55
--- NOTE | 2020-08-02 18:49 | NUR ---
I have reviewed this patient and I concur with the Shift Assessment completed by the Licensed Practical Nurse today this shift.
[2020-08-02 20:00] VITALS: BP 138/65
--- NOTE | 2020-08-02 22:00 | NUR ---
DRESSING CHANGE PER ORDER, CPOC.
[2020-08-03 04:00] VITALS: BP 119/62
[2020-08-03 04:25] LABS: BACTERIA MOD HPF (<MOD); BILIRUBIN NEGATIVE (NEGATIVE); KETONE NEGATIVE mg/dL (< 1+); NITRITE NEGATIVE (NEGATIVE); UROBILINOGEN NORMAL mg/dL (< 2); WHITE CELLS - URINE 146 HPF (0-4)
[2020-08-03 06:21] LABS: BASOPHILS 0.2 % (0-2); EOSINOPHILS 0.1 % (0-7); HEMATOCRIT 37.8 % (36.0-48.0); LYMPHOCYTES 14.3 % (15-50); MCH 30.2 pg (26.0-34.0); MCHC 31.8 g/dL (31.0-37.0); MCV 94.9 fL (80.0-100.0); MEAN PLATELET VOLUME 7.4 fL (7.4-10.4); MONOCYTES 11.7 % (2-11); NEUTROPHILS 73.7 % (40-80); RBC 3.99 10x6/uL (4.00-5.40); RDW 18.2 % (11.5-14.5)
[2020-08-03 06:25] LABS: PLATELET COUNT 304 10x3/uL (130-400)
[2020-08-03 06:28] LABS: ALBUMIN 1.8 g/dL (3.4-5.0); ALKALINE PHOSPHATASE 111 U/L (30-120); BILIRUBIN - TOTAL 0.33 mg/dL (0.2-1.3); CALC OSMOLALITY 268 mosm/kg (275-300); CALCIUM 8.7 mg/dL (8.5-10.1); CHLORIDE - SERUM 102 mmol/L (98-107); CREATININE - SERUM 0.6 mg/dL (0.6-1.3); GLUCOSE 90 mg/dL (74-106); MAGNESIUM - SERUM 1.9 mg/dL (1.8-2.4); POTASSIUM - SERUM 5.8 mmol/L (3.5-5.1); PROTEIN - SERUM 5.4 g/dL (6.4-8.2); SODIUM 133 mmol/L (136-145); UREA NITROGEN 21 mg/dL (7-18); eGFR NON AFRICAN AMERICAN > 90 mL/min (90-120)
[2020-08-03 06:30] LABS: ALT (SGPT) 15 U/L (10-68)
--- NOTE | 2020-08-03 07:39 | NUR ---
ALERT AND ORIENTED. ASSESSMENT COMPLETE. DENIES NEEDS. BED LOW. CALL QUIROS AND PERSONAL ITEMS IN REACH. WILL CONTINUE TO MONITOR.
[2020-08-03 08:44] VITALS: BP 140/78
[2020-08-03 09:12] VITALS: BP 140/78
[2020-08-03 13:01] VITALS: BP 128/67
--- NOTE | 2020-08-03 13:04 | NUR ---
PATIENT REFUSING TO DRINK KAYEXELATE. PRN ZOFRAN GIVEN ALREADY. WILL CONTINUE TO TRY TO GET PATIENT TO TAKE MED.
--- NOTE | 2020-08-03 13:49 | NUR ---
PATIENT TOOK ONE BOTTLE KAYEXELATE. WILL ATTEMPT TO GET PATIENT TO TAKE SECOND BOTTLE. DR DEIRDRE MURRIETA.
--- NOTE | 2020-08-03 15:22 | NUR ---
OT NOTE: PT COMPLETED SUPINE TO SIT WITH MAX A. PT COMPLETED EOB SITTING ENDURANCE WITH CGA. PT REQUIRED EXTENSIVE VERBAL CUES TO HOLD HEAD UP. PT ATTEMPTED SIT TO STAND WITH MOD-MAX A. PT WAS ABLE TO BEAR WT IN LE. PT COMPLETED RUE AROM. [phone] THANK YOU, PERICO WILKINS
[2020-08-03 16:37] VITALS: BP 115/67
[2020-08-03 20:00] VITALS: BP 137/71
[2020-08-04] VITALS (7 sets, daily range): BP systolic 122–160; BP diastolic 58–71
--- NOTE | 2020-08-04 05:17 | NUR ---
I have reviewed this patient and I concur with the Shift Assessment completed by the Licensed Practical Nurse today this shift.
--- NOTE | 2020-08-04 06:17 | NUR ---
CHANGED ILIOSTOMY AND ABD DRESSING ORDERED. WILL CONTINUE PLAN OF CARE. CALL LIGHT IN REACH. BED LOWERED AND LOCKED. BED RAILS UPX2.
[2020-08-04 07:32] LABS: BASOPHILS 0.4 % (0-2); EOSINOPHILS 0.7 % (0-7); HEMATOCRIT 35.9 % (36.0-48.0); HEMOGLOBIN 11.5 g/dL (12-16); LYMPHOCYTES 24.8 % (15-50); MCH 30.1 pg (26.0-34.0); MCHC 31.9 g/dL (31.0-37.0); MCV 94.3 fL (80.0-100.0); MEAN PLATELET VOLUME 6.9 fL (7.4-10.4); MONOCYTES 13.4 % (2-11); NEUTROPHILS 60.7 % (40-80); PLATELET COUNT 323 10x3/uL (130-400); RBC 3.81 10x6/uL (4.00-5.40); RDW 17.9 % (11.5-14.5); WBC 6.2 10x3/uL (4.8-10.8)
--- NOTE | 2020-08-04 07:43 | NUR ---
ALERT AND ORIENTED. ASSESSMENT COMPLETE. DENIES NEEDS. BED LOW. CALL QUIROS AND PERSONAL ITEMS IN REACH. WILL CONTINUE TO MONITOR.
[2020-08-04 08:19] LABS: ALBUMIN 1.5 g/dL (3.4-5.0); ALKALINE PHOSPHATASE 106 U/L (30-120); ALT (SGPT) 13 U/L (10-68); CALC OSMOLALITY 269 mosm/kg (275-300); CALCIUM 8.1 mg/dL (8.5-10.1); CARBON DIOXIDE 25.2 mmol/L (21.0-32.0); CHLORIDE - SERUM 102 mmol/L (98-107); CREATININE - SERUM 0.6 mg/dL (0.6-1.3); MAGNESIUM - SERUM 1.7 mg/dL (1.8-2.4); POTASSIUM - SERUM 5.4 mmol/L (3.5-5.1); PROTEIN - SERUM 4.8 g/dL (6.4-8.2); SODIUM 134 mmol/L (136-145); UREA NITROGEN 23 mg/dL (7-18); eGFR NON AFRICAN AMERICAN > 90 mL/min (90-120)
[2020-08-04 08:23] LABS: GLUCOSE 66 mg/dL (74-106)
--- NOTE | 2020-08-04 10:30 | MORECARE ---
CASE MANAGEMENT DISCHARGE SUMMARY PATIENT: AWA ANTONIO UNIT: [id number] ADM DATE: 07/24/20 AGE: 75 : 45 SEX: F ROOM/BED: D.2210 AUTHOR: JENNIFER,DOC PHYSICIAN: REFERRING PHYSICIAN: ODETTE DIEGO MD DATE OF SERVICE: 08/04/20 Case Management Discharge Planning Summary COMMENTS ENTERED DATE: 08/04/20 10:14 CT COMMENT TYPE: Discharge Planning REVIEWER: Ana Lilia Miller 0945 CM RECEIVED REQUEST TO SPEAK WITH THE PATIENT. SHE WANTED TO DISCUSS DISCHARGE TO SKILLED FACILITY. CM WENT TO HER ROOM.PATIENT STATED NO ONE HAD DISCUSSED HER DISCHARGE WITH HER. CM HAD REVIEWED THE CM NOTES. ADVISED MY UNDERSTANDING. SHE WAS ADVISED THE TWO CHOICES FOR PROVIDERS DID NOT HAVE BEDS AND NO BEDS IN THE NEAR FUTURE. SHE STATED SHE HAD A CONCERN REGARDING THE REASON SHE IS HOSPITALIZED. SHE STATES SHE HAS NOT SPOKEN WITH ANY ONE. CM ADVISED I WOULD HAVE THE PRIMARY NURSE TO REQUEST THE DR TO SPEAK WITH HER. CM SPOKE WITH THE PRIMARY NURSE, ELIZABET. SHE WILL SPEAK WITH THE DOCTOR. ENTERED DATE: 08/02/20 8:04 CT COMMENT TYPE: Discharge Planning REVIEWER: Kimi Varela RECEIVED A CALL FROM [facility] YESTERDAY EVENING THEY WILL ACCEPT THE PATIENT IF THE PATIENT IS AGREEABLE ENTERED DATE: 08/01/20 12:07 CT COMMENT TYPE: Discharge Planning REVIEWER: Kimi Varela spoke to patient's and he is going to look at [facility] and [facility] and get back with me I will send a referral to [facility] to get the ball rolling. ENTERED DATE: 08/01/20 10:22 CT COMMENT TYPE: Discharge Planning REVIEWER: Kimi Nichole attempted to call patient's spouse to get a 3rd choice for skilled I did not get an answer will try again at a later time ENTERED DATE: 07/31/20 14:28 CT COMMENT TYPE: Discharge Planning REVIEWER: Kimi Nichole Patient needs rehab [facility] and our inpatient rehab declined the patient, I spoke with her about her skilled options and she stated that her first choice is [facility] and her second choice is [facility] I called [facility] and they do not have and bed availability. I also reached out to [facility] and they are also full. I got a GRECIA and an IMM signed. I will have to reach out to her again for her 3rd choice. CM to follow and assist DCP REVIEW SUMMARY ANTICIPATED D/C DATE: EXPECTED LOS : CASE STATUS: DCP Initiated INITIAL REVIEW: 07/23/2020 INITIAL REVIEWER: Kimi Varela FINAL DISCHARGE DISPOSITION: : FINAL REVIEWER: FINAL REVIEW DATE: DCP [facility] Questions & Answers QUESTION: ANSWER : PATIENT: AWA ANTONIO ENCOUNTER: [id number] MEDICAL RECORD#: [id number] ADMISSION DATE: 07/24/2020 DISCHARGE DATE: ATTENDING MD: CARLTON HEARN : AGE: 75 MARITAL STATUS: M DC PLAN ID: [id number] FACILITY: [facility] PRINTED ON: 08/04/20 10:30 CT All edits/amendments must be made on the electronic document DICTATION DATE: 08/04/20 103 SETTLEMENT WORKER: EILEEN 08/04/20 1030 RPT#: [id number] DC DATE: STATUS: ADM IN [facility] [address] [place] [address] END OF REPORT
--- NOTE | 2020-08-04 14:41 | NUR ---
PATIENT AGREEABLE TO GO TO [facility] BUT REFUSING. CASE MANAGEMENT, ARASELI, WORKING ON DC POSSIBILITY.
--- NOTE | 2020-08-04 17:10 | MORECARE ---
CASE MANAGEMENT DISCHARGE SUMMARY PATIENT: AWA ANTONIO UNIT: [id number] ADM DATE: 07/24/20 AGE: 75 : 45 SEX: F ROOM/BED: D.2210 AUTHOR: JENNIFER,DOC PHYSICIAN: REFERRING PHYSICIAN: ODETTE DIEGO MD DATE OF SERVICE: 08/04/20 Case Management Discharge Planning Summary COMMENTS ENTERED DATE: 08/04/20 16:52 CT COMMENT TYPE: Discharge Planning REVIEWER: Ana Lilia Miller PATIENT HAD ACCEPTED PLAN FOR DISCHARGE TO SKILLED BED AT [facility]. REC TELEPHONE CALL THAT [facility] HAD SPOKE WITH THE . THE PATIENT WOULD HAVE TO BE ADMITTED TO THE OTHER UNIT UNTIL REHAB BED WAS AVAILABLE. THE STATED SHE WOULD NOT ACCEPT. C TELEPHONE THE X2. NO ANSWER AT THAT TIME. THE NURSE ADVISED THE CM THE WAS ON THE PHONE THIS LATE PM. JAY SPOKE WITH THE . HE DOES NOT FEEL SHE WILL ACCEPT THE SITUATION BECAUSE SHE IS TO BE ADMITTED TO SKILLED . JAY ADVISED IF SHE DID NOT WANT THE SKILLED BED WHAT WOULD BE THE PLAN. HOME W/ HOME HEALTH, THEN THE SPOUSE BECAME UPSET. JAY SPOKE W/ THE MD WHO WAS PRESENT ON THE UNIT. HE SPENT 20 MINUTES TALKING TO THE SPOUSE AND THE PATIENT ON THE PHONE. THE RESOLUTION IS SHE WILL ACCEPT SKILLED CARE AT [facility]. SHE VOICED A FEAR THAT SHE WAS BEING TRICKED INTO A NURSING HOME SITUATION. DR GILMORE EXXPLAINED SHE WAS NOT. SHE CONSENT TO DISCHARGE TO [facility]. ENTERED DATE: 08/04/20 10:14 CT COMMENT TYPE: Discharge Planning REVIEWER: Ana Lilia Miller 0945 JAY RECEIVED REQUEST TO SPEAK WITH THE PATIENT. SHE WANTED TO DISCUSS DISCHARGE TO SKILLED FACILITY. JAY WENT TO HER ROOM.PATIENT STATED NO ONE HAD DISCUSSED HER DISCHARGE WITH HER. JAY HAD REVIEWED THE JAY NOTES. ADVISED MY UNDERSTANDING. SHE WAS ADVISED THE TWO CHOICES FOR PROVIDERS DID NOT HAVE BEDS AND NO BEDS IN THE NEAR FUTURE. SHE STATED SHE HAD A CONCERN REGARDING THE REASON SHE IS HOSPITALIZED. SHE STATES SHE HAS NOT SPOKEN WITH ANY ONE. JAY ADVISED I WOULD HAVE THE PRIMARY NURSE TO REQUEST THE DR TO SPEAK WITH HER. JAY SPOKE WITH THE PRIMARY NURSE, ELIZABET. SHE WILL SPEAK WITH THE DOCTOR. ENTERED DATE: 08/02/20 8:04 CT COMMENT TYPE: Discharge Planning REVIEWER: Kimi Varela RECEIVED A CALL FROM [facility] YESTERDAY EVENING THEY WILL ACCEPT THE PATIENT IF THE PATIENT IS AGREEABLE ENTERED DATE: 08/01/20 12:07 CT COMMENT TYPE: Discharge Planning REVIEWER: Kimi Varela spoke to patient's and he is going to look at [facility] and [facility] and get back with me I will send a referral to [facility] to get the ball rolling. ENTERED DATE: 08/01/20 10:22 CT COMMENT TYPE: Discharge Planning REVIEWER: Kimi Varela attempted to call patient's spouse to get a 3rd choice for skilled I did not get an answer will try again at a later time ENTERED DATE: 07/31/20 14:28 CT COMMENT TYPE: Discharge Planning REVIEWER: Kimi Varela Patient needs rehab [facility] and our inpatient rehab declined the patient, I spoke with her about her skilled options and she stated that her first choice is [facility] and her second choice is [facility] I called [facility] and they do not have and bed availability. I also reached out to [facility] and they are also full. I got a GRECIA and an IMM signed. I will have to reach out to her again for her 3rd choice. CM to follow and assist DCP REVIEW SUMMARY ANTICIPATED D/C DATE: EXPECTED LOS : CASE STATUS: DCP Initiated INITIAL REVIEW: 07/23/2020 INITIAL REVIEWER: Kimi Varela FINAL DISCHARGE DISPOSITION: : FINAL REVIEWER: FINAL REVIEW DATE: DCP [facility] Questions & Answers QUESTION: ANSWER : PATIENT: AWA ANTONIO ENCOUNTER: [id number] MEDICAL RECORD#: [id number] ADMISSION DATE: 07/24/2020 DISCHARGE DATE: ATTENDING MD: CARLTON HEARN : AGE: 75 MARITAL STATUS: M DC PLAN ID: [id number] FACILITY: [facility] PRINTED ON: 08/04/20 17:10 CT All edits/amendments must be made on the electronic document DICTATION DATE: 08/04/201709 TECHNICIAN'S HELPER: EILEEN 08/04/201709 RPT#: [id number] DC DATE: STATUS: ADM IN [facility] [address] [place] [address] END OF REPORT
--- NOTE | 2020-08-04 17:30 | NUR ---
PATIENT REFUSING TO SIGN DISCHARGE PAPERWORK UNTIL ARRIVES AT HOSPITAL. NOT COMING TO HOSPITAL. SPOKE WITH PATIENT'S WHO STATES WILL CALL PATIENT AND TALK TO HER.
--- NOTE | 2020-08-04 18:32 | MORECARE ---
CASE MANAGEMENT DISCHARGE SUMMARY PATIENT: AWA ANTONIO UNIT: [id number] ADM DATE: 07/24/20 AGE: 75 : 45 SEX: F ROOM/BED: D.2210 AUTHOR: JENNIFER,DOC PHYSICIAN: REFERRING PHYSICIAN: ODETTE DIEGO MD DATE OF SERVICE: 08/04/20 Case Management Discharge Planning Summary COMMENTS ENTERED DATE: 08/04/20 18:26 CT COMMENT TYPE: Discharge Planning REVIEWER: Ana Lilia Angela TC TO [facility] TO [facility] IF SHE COULD BE ADMITTED THIS PM. REC CALL BACK THAT PATIENT COULD COME HOWEVER SHE WOULD NEED HARD SCRIPTS FOR HER MEDICATIONS THE FACILITY DR IS ON VACATION. NO HARD SCRIPTS. THIS WAS NOT COMMUNICATED PREVIOUSLY. PRIMARY NURSE CALLED DR GILMORE. HE ADVISED THE PRIMARY TO CALL THE PHOTOGRAPHY COORDINATOR. ENTERED DATE: 08/04/20 16:52 CT COMMENT TYPE: Discharge Planning REVIEWER: Ana Lilia Miller PATIENT HAD ACCEPTED PLAN FOR DISCHARGE TO SKILLED BED AT [facility]. REC TELEPHONE CALL THAT [facility] HAD SPOKE WITH THE . THE PATIENT WOULD HAVE TO BE ADMITTED TO THE OTHER UNIT UNTIL REHAB BED WAS AVAILABLE. THE STATED SHE WOULD NOT ACCEPT. C TELEPHONE THE X2. NO ANSWER AT THAT TIME. THE NURSE ADVISED THE CM THE WAS ON THE PHONE THIS LATE PM. CM SPOKE WITH THE . HE DOES NOT FEEL SHE WILL ACCEPT THE SITUATION BECAUSE SHE IS TO BE ADMITTED TO SKILLED . CM ADVISED IF SHE DID NOT WANT THE SKILLED BED WHAT WOULD BE THE PLAN. HOME W/ HOME HEALTH, THEN THE SPOUSE BECAME UPSET. JAY SPOKE W/ THE MD WHO WAS PRESENT ON THE UNIT. HE SPENT 20 MINUTES TALKING TO THE SPOUSE AND THE PATIENT ON THE PHONE. THE RESOLUTION IS SHE WILL ACCEPT SKILLED CARE AT [facility]. SHE VOICED A FEAR THAT SHE WAS BEING TRICKED INTO A CARE HOME SITUATION. DR GILMORE EXXPLAINED SHE WAS NOT. SHE CONSENT TO DISCHARGE TO [facility]. ENTERED DATE: 08/04/20 10:14 CT COMMENT TYPE: Discharge Planning REVIEWER: Ana Lilia Angela 0945 JAY RECEIVED REQUEST TO SPEAK WITH THE PATIENT. SHE WANTED TO DISCUSS DISCHARGE TO SKILLED FACILITY. CM WENT TO HER ROOM.PATIENT STATED NO ONE HAD DISCUSSED HER DISCHARGE WITH HER. CM HAD REVIEWED THE CM NOTES. ADVISED MY UNDERSTANDING. SHE WAS ADVISED THE TWO CHOICES FOR PROVIDERS DID NOT HAVE BEDS AND NO BEDS IN THE NEAR FUTURE. SHE STATED SHE HAD A CONCERN REGARDING THE REASON SHE IS HOSPITALIZED. SHE STATES SHE HAS NOT SPOKEN WITH ANY ONE. CM ADVISED I WOULD HAVE THE PRIMARY NURSE TO REQUEST THE DR TO SPEAK WITH HER. CM SPOKE WITH THE PRIMARY NURSE, ELIZABET. SHE WILL SPEAK WITH THE DOCTOR. ENTERED DATE: 08/02/20 8:04 CT COMMENT TYPE: Discharge Planning REVIEWER: Kimi Varela RECEIVED A CALL FROM [facility] YESTERDAY EVENING THEY WILL ACCEPT THE PATIENT IF THE PATIENT IS AGREEABLE ENTERED DATE: 08/01/20 12:07 CT COMMENT TYPE: Discharge Planning REVIEWER: Kimi Varela spoke to patient's and he is going to look at [facility] and [facility] and get back with me I will send a referral to [facility] to get the ball rolling. ENTERED DATE: 08/01/20 10:22 CT COMMENT TYPE: Discharge Planning REVIEWER: Kimi Varela attempted to call patient's spouse to get a 3rd choice for skilled I did not get an answer will try again at a later time ENTERED DATE: 07/31/20 14:28 CT COMMENT TYPE: Discharge Planning REVIEWER: Kimi Varela Patient needs rehab [facility] and our inpatient rehab declined the patient, I spoke with her about her skilled options and she stated that her first choice is [facility] and her second choice is [facility] I called [facility] and they do not have and bed availability. I also reached out to [facility] and they are also full. I got a GRECIA and an IMM signed. I will have to reach out to her again for her 3rd choice. CM to follow and assist DCP REVIEW SUMMARY ANTICIPATED D/C DATE: EXPECTED LOS : CASE STATUS: DCP Initiated INITIAL REVIEW: 07/23/2020 INITIAL REVIEWER: Kimi Varela FINAL DISCHARGE DISPOSITION: : FINAL REVIEWER: FINAL REVIEW DATE: DCP [facility] Questions & Answers QUESTION: ANSWER : PATIENT: AWA ANTONIO ENCOUNTER: [id number] MEDICAL RECORD#: [id number] ADMISSION DATE: 07/24/2020 DISCHARGE DATE: ATTENDING MD: CARLTON HEARN : AGE: 75 MARITAL STATUS: M DC PLAN ID: [id number] FACILITY: [facility] PRINTED ON: 08/04/20 18:32 CT All edits/amendments must be made on the electronic document DICTATION DATE: 08/04/201831 HEMODIALYSIS TECHNICIAN: EILEEN 08/04/201831 RPT#: [id number] DC DATE: STATUS: ADM IN [facility] [address] [place] [address] END OF REPORT
--- NOTE | 2020-08-04 18:38 | NUR ---
AMBULANCE STATES WILL BE AT HOSPITAL IN AROUND AN HOUR TO [facility] PATIENT. SPOKE WITH DR GILMORE TO GET RX FOR HOME NARCOTICS FOR DC. STATES MIRELLA AUSTIN SHOULD BE ABLE TO TAKE CARE OF RX WITH DR BUSTILLOS. MIRELLA AUSTIN PAGED AND WAITING CALL BACK.
--- NOTE | 2020-08-04 18:59 | NUR ---
SPOKE WITH MIRELLA AUSTIN WHO STATES THAT PATIENT'S CAN BRING PATIENT'S HOME MEDS TO SKILLED NURSING FOR TIME BEING AND THAT SKILLED NURSING HAS CATALYTIC CONVERTER OPERATOR HELPER WHO SHOULD BE ABLE TO CALL IN MEDICATIONS.
--- NOTE | 2020-08-04 19:45 | NUR ---
[facility] NEVER CALLED FOR REPORT. SUPPOSED TO CALL PER NORRIS HUTCHISON CASE MANAGEMENT AT [facility] AND MATEUS AT [facility]. PATIENT PICKED UP BY [facility] AND TAKEN TO [facility]. FAMILY FOLLOWING WITH PATIENTS BELONGINGS.
--- NOTE | 2020-08-07 08:37 | MORECARE ---
CASE MANAGEMENT DISCHARGE SUMMARY PATIENT: AWA ANTONIO UNIT: [id number] ADM DATE: 07/24/20 AGE: 75 : 45 SEX: F ROOM/BED: D.2210 AUTHOR: JENNIFER,DOC PHYSICIAN: REFERRING PHYSICIAN: ODETTE DIEGO MD DATE OF SERVICE: 08/07/20 Case Management Discharge Planning Summary COMMENTS ENTERED DATE: 08/04/20 18:26 CT COMMENT TYPE: Discharge Planning REVIEWER: Ana Lilia Angela TC TO [facility] TO ASCERTAIN IF SHE COULD BE ADMITTED THIS PM. REC CALL BACK THAT PATIENT COULD COME HOWEVER SHE WOULD NEED HARD SCRIPTS FOR HER MEDICATIONS THE FACILITY DR IS ON VACATION. NO HARD SCRIPTS. THIS WAS NOT COMMUNICATED PREVIOUSLY. PRIMARY NURSE CALLED DR GILMORE. HE ADVISED THE PRIMARY TO CALL THE SUPERVISOR LACE TEARING. ENTERED DATE: 08/04/20 16:52 CT COMMENT TYPE: Discharge Planning REVIEWER: Ana Lilia Miller PATIENT HAD ACCEPTED PLAN FOR DISCHARGE TO SKILLED BED AT [facility]. REC TELEPHONE CALL THAT [facility] HAD SPOKE WITH THE . THE PATIENT WOULD HAVE TO BE ADMITTED TO THE OTHER UNIT UNTIL REHAB BED WAS AVAILABLE. THE STATED SHE WOULD NOT ACCEPT. C TELEPHONE THE X2. NO ANSWER AT THAT TIME. THE NURSE ADVISED THE CM THE WAS ON THE PHONE THIS LATE PM. CM SPOKE WITH THE . HE DOES NOT FEEL SHE WILL ACCEPT THE SITUATION BECAUSE SHE IS TO BE ADMITTED TO SKILLED . CM ADVISED IF SHE DID NOT WANT THE SKILLED BED WHAT WOULD BE THE PLAN. HOME W/ HOME HEALTH, THEN THE SPOUSE BECAME UPSET. JAY SPOKE W/ THE MD WHO WAS PRESENT ON THE UNIT. HE SPENT 20 MINUTES TALKING TO THE SPOUSE AND THE PATIENT ON THE PHONE. THE RESOLUTION IS SHE WILL ACCEPT SKILLED CARE AT [facility]. SHE VOICED A FEAR THAT SHE WAS BEING TRICKED INTO A SENIOR LIVING SITUATION. DR GILMORE EXXPLAINED SHE WAS NOT. SHE CONSENT TO DISCHARGE TO [facility]. ENTERED DATE: 08/04/20 10:14 CT COMMENT TYPE: Discharge Planning REVIEWER: Ana Lilia Angela 0945 JAY RECEIVED REQUEST TO SPEAK WITH THE PATIENT. SHE WANTED TO DISCUSS DISCHARGE TO SKILLED FACILITY. CM WENT TO HER ROOM.PATIENT STATED NO ONE HAD DISCUSSED HER DISCHARGE WITH HER. CM HAD REVIEWED THE CM NOTES. ADVISED MY UNDERSTANDING. SHE WAS ADVISED THE TWO CHOICES FOR PROVIDERS DID NOT HAVE BEDS AND NO BEDS IN THE NEAR FUTURE. SHE STATED SHE HAD A CONCERN REGARDING THE REASON SHE IS HOSPITALIZED. SHE STATES SHE HAS NOT SPOKEN WITH ANY ONE. CM ADVISED I WOULD HAVE THE PRIMARY NURSE TO REQUEST THE DR TO SPEAK WITH HER. CM SPOKE WITH THE PRIMARY NURSE, ELIZABET. SHE WILL SPEAK WITH THE DOCTOR. ENTERED DATE: 08/02/20 8:04 CT COMMENT TYPE: Discharge Planning REVIEWER: Kimi Varela RECEIVED A CALL FROM [facility] YESTERDAY EVENING THEY WILL ACCEPT THE PATIENT IF THE PATIENT IS AGREEABLE ENTERED DATE: 08/01/20 12:07 CT COMMENT TYPE: Discharge Planning REVIEWER: Kimi Varela spoke to patient's and he is going to look at [facility] and [place] and get back with me I will send a referral to [facility] to get the ball rolling. ENTERED DATE: 08/01/20 10:22 CT COMMENT TYPE: Discharge Planning REVIEWER: Kimi Varela attempted to call patient's spouse to get a 3rd choice for skilled I did not get an answer will try again at a later time ENTERED DATE: 07/31/20 14:28 CT COMMENT TYPE: Discharge Planning REVIEWER: Kimi Varela Patient needs rehab [facility] and our inpatient rehab declined the patient, I spoke with her about her skilled options and she stated that her first choice is [facility] and her second choice is [facility] I called [facility] and they do not have and bed availability. I also reached out to [facility] and they are also full. I got a GRECIA and an IMM signed. I will have to reach out to her again for her 3rd choice. CM to follow and assist DCP REVIEW SUMMARY ANTICIPATED D/C DATE: EXPECTED LOS : CASE STATUS: DCP Initiated INITIAL REVIEW: 07/23/2020 INITIAL REVIEWER: Kimi Varela FINAL DISCHARGE DISPOSITION: : FINAL REVIEWER: FINAL REVIEW DATE: DCP [facility] Questions & Answers QUESTION: ANSWER : PATIENT: AWA ANTONIO ENCOUNTER: [id number] MEDICAL RECORD#: [id number] ADMISSION DATE: 07/24/2020 DISCHARGE DATE: 08/04/2020 ATTENDING MD: CARLTON HEARN : 1946- AGE: 75 MARITAL STATUS: M DC PLAN ID: [id number] FACILITY: [facility] PRINTED ON: 08/07/20 8:37 CT All edits/amendments must be made on the electronic document DICTATION DATE: 08/07/20836 SECONDARY SET UP MAN: EILEEN 08/07/2037 RPT#: [id number] DC DATE:08/04/20 STATUS: DIS IN [facility] [address] [place] [address] END OF REPORT
--- NOTE | 2020-08-07 15:02 | MORECARE ---
CASE MANAGEMENT DISCHARGE SUMMARY PATIENT: AWA ANTONIO UNIT: [id number] ADM DATE: 07/24/20 AGE: 75 : 45 SEX: F ROOM/BED: D.2210 AUTHOR: JENNIFER,DOC PHYSICIAN: REFERRING PHYSICIAN: ODETTE DIEGO MD DATE OF SERVICE: 08/07/20 Case Management Discharge Planning Summary COMMENTS ENTERED DATE: 08/04/20 18:26 CT COMMENT TYPE: Discharge Planning REVIEWER: Ana Lilia Angela TC TO [facility] TO ASCERTAIN IF SHE COULD BE ADMITTED THIS PM. REC CALL BACK THAT PATIENT COULD COME HOWEVER SHE WOULD NEED HARD SCRIPTS FOR HER MEDICATIONS THE FACILITY DR IS ON VACATION. NO HARD SCRIPTS. THIS WAS NOT COMMUNICATED PREVIOUSLY. PRIMARY NURSE CALLED DR GILMORE. HE ADVISED THE PRIMARY TO CALL THE IMMIGRATION COORDINATOR. ENTERED DATE: 08/04/20 16:52 CT COMMENT TYPE: Discharge Planning REVIEWER: Ana Lilia Miller PATIENT HAD ACCEPTED PLAN FOR DISCHARGE TO SKILLED BED AT [facility]. REC TELEPHONE CALL THAT [facility] HAD SPOKE WITH THE . THE PATIENT WOULD HAVE TO BE ADMITTED TO THE OTHER UNIT UNTIL REHAB BED WAS AVAILABLE. THE STATED SHE WOULD NOT ACCEPT. C TELEPHONE THE X2. NO ANSWER AT THAT TIME. THE NURSE ADVISED THE CM THE WAS ON THE PHONE THIS LATE PM. CM SPOKE WITH THE . HE DOES NOT FEEL SHE WILL ACCEPT THE SITUATION BECAUSE SHE IS TO BE ADMITTED TO SKILLED . CM ADVISED IF SHE DID NOT WANT THE SKILLED BED WHAT WOULD BE THE PLAN. HOME W/ HOME HEALTH, THEN THE SPOUSE BECAME UPSET. JAY SPOKE W/ THE MD WHO WAS PRESENT ON THE UNIT. HE SPENT 20 MINUTES TALKING TO THE SPOUSE AND THE PATIENT ON THE PHONE. THE RESOLUTION IS SHE WILL ACCEPT SKILLED CARE AT [facility]. SHE VOICED A FEAR THAT SHE WAS BEING TRICKED INTO A SENIOR LIVING SITUATION. DR GILMORE EXXPLAINED SHE WAS NOT. SHE CONSENT TO DISCHARGE TO [facility]. ENTERED DATE: 08/04/20 10:14 CT COMMENT TYPE: Discharge Planning REVIEWER: Ana Lilia Angela 0945 JAY RECEIVED REQUEST TO SPEAK WITH THE PATIENT. SHE WANTED TO DISCUSS DISCHARGE TO SKILLED FACILITY. CM WENT TO HER ROOM.PATIENT STATED NO ONE HAD DISCUSSED HER DISCHARGE WITH HER. CM HAD REVIEWED THE CM NOTES. ADVISED MY UNDERSTANDING. SHE WAS ADVISED THE TWO CHOICES FOR PROVIDERS DID NOT HAVE BEDS AND NO BEDS IN THE NEAR FUTURE. SHE STATED SHE HAD A CONCERN REGARDING THE REASON SHE IS HOSPITALIZED. SHE STATES SHE HAS NOT SPOKEN WITH ANY ONE. CM ADVISED I WOULD HAVE THE PRIMARY NURSE TO REQUEST THE DR TO SPEAK WITH HER. CM SPOKE WITH THE PRIMARY NURSE, ELIZABET. SHE WILL SPEAK WITH THE DOCTOR. ENTERED DATE: 08/02/20 8:04 CT COMMENT TYPE: Discharge Planning REVIEWER: Kimi Varela RECEIVED A CALL FROM [facility] YESTERDAY EVENING THEY WILL ACCEPT THE PATIENT IF THE PATIENT IS AGREEABLE ENTERED DATE: 08/01/20 12:07 CT COMMENT TYPE: Discharge Planning REVIEWER: Kimi Varela spoke to patient's and he is going to look at [facility] and [place] and get back with me I will send a referral to [facility] to get the ball rolling. ENTERED DATE: 08/01/20 10:22 CT COMMENT TYPE: Discharge Planning REVIEWER: Kimi Varela attempted to call patient's spouse to get a 3rd choice for skilled I did not get an answer will try again at a later time ENTERED DATE: 07/31/20 14:28 CT COMMENT TYPE: Discharge Planning REVIEWER: Kimi Varela Patient needs rehab [facility] and our inpatient rehab declined the patient, I spoke with her about her skilled options and she stated that her first choice is [facility] and her second choice is [facility] I called [facility] and they do not have and bed availability. I also reached out to [facility] and they are also full. I got a GRECIA and an IMM signed. I will have to reach out to her again for her 3rd choice. CM to follow and assist DCP REVIEW SUMMARY ANTICIPATED D/C DATE: EXPECTED LOS : CASE STATUS: DCP Initiated INITIAL REVIEW: 07/23/2020 INITIAL REVIEWER: Kimi Varela FINAL DISCHARGE DISPOSITION: : FINAL REVIEWER: FINAL REVIEW DATE: DCP [facility] Questions & Answers QUESTION: ANSWER : PATIENT: AWA ANTONIO ENCOUNTER: [id number] MEDICAL RECORD#: [id number] ADMISSION DATE: 07/24/2020 DISCHARGE DATE: 08/04/2020 ATTENDING MD: CARLTON HEARN : 1946- AGE: 75 MARITAL STATUS: M DC PLAN ID: [id number] FACILITY: [facility] PRINTED ON: 08/07/20 15:02 CT All edits/amendments must be made on the electronic document DICTATION DATE: 08/07/201501 RAISIN WASHER: EILEEN 08/07/20 150 RPT#: [id number] DC DATE:08/04/20 STATUS: DIS IN [facility] [address] [place] [address] END OF REPORT
== END 2020-08-04 19:46 | DRG 389 ==
LOC: D.ER 19:34 → D.EDHOLD 07-23 00:18 → D.MS 07-23 00:18 → D.EDHOLD 07-23 00:18 → OBSVTIME 07-23 00:18 → D.EDHOLD 07-23 01:35 → D.MS 07-23 23:36
PROVIDERS: Emergency Medicine; Family Medicine; ADMIT Emergency Medicine; ATTEND Emergency Medicine
DX: K56.609 Unspecified intestinal obstruction, unspecified as to partial versus complete obstruction (principal); I31.3 Pericardial effusion (noninflammatory); J98.11 Atelectasis; E46 Unspecified protein-calorie malnutrition; D64.9 Anemia, unspecified; E87.6 Hypokalemia; E83.42 Hypomagnesemia; I48.0 Paroxysmal atrial fibrillation; E11.40 Type 2 diabetes mellitus with diabetic neuropathy, unspecified; I11.0 Hypertensive heart disease with heart failure; I50.9 Heart failure, unspecified; Z93.3 Colostomy status; Z68.21 Body mass index [BMI] 21.0-21.9, adult

== ENCOUNTER → 2020-08-09 22:26 | Outpatient (CLI) | payer MEDICARE, BC ==
[2020-07-24 13:12] VITALS: BMI 21.9
[~2020-08-09 22:26] MED LIST changes: +ATIVAN0.5 MG PO; +COLACE100 MG PO; +FERROUS SULFAT325 MG PO; +GABAPENTIN100 MG PO; +GAS-X180 MG PO; +HYDROCODON-ACE1 EA10 PO; +METOPROLOL TART50 MG PO; +ONDANSETRON HCL8 MG PO; +PACERONE100 MG PO; +POTASSIUM CHLO10 ME1 PO; +PROCHLORPERAZ5 MG/M1 IM; +PROTONIX40 MG PO; +RESTORIL15 MG PO; +SEROQUEL25 MG PO; +TRAZODONE HCL150 MG PO; +TRUSOPT 2 % OPT10 ML LEFT EYE; +VOLTAREN100 GM TOPICAL; +ZOFRAN4 MG PO
[2020-08-10 00:12] LABS: BILIRUBIN NEGATIVE (NEGATIVE); KETONE NEGATIVE mg/dL (< 1+); NITRITE POSITIVE (NEGATIVE); PH 7.5 (5.0-8.0); UROBILINOGEN NORMAL mg/dL (< 2)
[2020-08-10 00:18] LABS: BACTERIA MANY HPF (<MOD); SQUAMOUS EPITHELIAL 0-5 HPF (0-4)
== END | disposition home or self-care (01) ==
LOC: D.LABREF 22:26
PROVIDERS: ATTEND Family Medicine
DX: R10.9 Unspecified abdominal pain (principal)

== ENCOUNTER 2020-08-18 13:59 | Emergency (ER) | payer MEDICARE, BC ==
[2020-08-18 14:08] VITALS: Ht 157.5 cm
[2020-08-18 15:09] LABS: AMORPHOUS SEDIMENT RARE LPF (<FEW); BACTERIA FEW HPF (<MOD); BILIRUBIN NEGATIVE (NEGATIVE); KETONE NEGATIVE mg/dL (< 1+); NITRITE NEGATIVE (NEGATIVE); PH 6.5 (5.0-8.0); UROBILINOGEN NORMAL mg/dL (< 2); WHITE CELLS - URINE 91 HPF (0-4)
[2020-08-18 16:20] LABS: BASOPHILS 0.2 % (0-2); EOSINOPHILS 0.5 % (0-7); HEMATOCRIT 39.3 % (36.0-48.0); HEMOGLOBIN 12.6 g/dL (12-16); MCH 29.7 pg (26.0-34.0); MCV 92.8 fL (80.0-100.0); MEAN PLATELET VOLUME 6.9 fL (7.4-10.4); MONOCYTES 10.4 % (2-11); NEUTROPHILS 67.9 % (40-80); PLATELET COUNT 387 10x3/uL (130-400); RBC 4.24 10x6/uL (4.00-5.40); WBC 6.5 10x3/uL (4.8-10.8)
[2020-08-18 16:38] LABS: CALC OSMOLALITY 273 mosm/kg (275-300); CALCIUM 7.9 mg/dL (8.5-10.1); CARBON DIOXIDE 22.7 mmol/L (21.0-32.0); CHLORIDE - SERUM 101 mmol/L (98-107); CREATININE - SERUM 0.6 mg/dL (0.6-1.3); GLUCOSE 92 mg/dL (74-106); POTASSIUM - SERUM 4.9 mmol/L (3.5-5.1); SODIUM 132 mmol/L (136-145); UREA NITROGEN 38 mg/dL (7-18); eGFR NON AFRICAN AMERICAN > 90 mL/min (90-120)
[2020-08-18 16:40] LABS: ALBUMIN 1.4 g/dL (3.4-5.0); ALKALINE PHOSPHATASE 146 U/L (30-120); ALT (SGPT) 21 U/L (10-68); BILIRUBIN - TOTAL 0.45 mg/dL (0.2-1.3); PROTEIN - SERUM 4.7 g/dL (6.4-8.2)
[2020-08-18] MEDS ORDERED: MACROBID100 MG PO (19:26)
[2020-08-18 21:00] VITALS: BP 117/69
== END 2020-08-18 21:17 | disposition home or self-care (01) ==
LOC: D.ER 13:59
PROVIDERS: Emergency Medicine
DX: N39.0 Urinary tract infection, site not specified (principal); E86.0 Dehydration; E11.40 Type 2 diabetes mellitus with diabetic neuropathy, unspecified; I10 Essential (primary) hypertension; Z79.01 Long term (current) use of anticoagulants; R41.82 Altered mental status, unspecified